=== PATIENT | male | born 1960 | race Caucasian/White ===

== ENCOUNTER 2021-04-07 14:32 | Outpatient (CLI) | payer OTHER, SELFPAY ==
[2021-04-07 14:36] VITALS: BP 192/85; PULSE 64; RESP 16; TEMP 36.4; O2SAT 100; BMI 35.2
[2021-04-07] MEDS: 0.9% Saline Lock 10 ML Syringe IV (14:37)
[2021-04-07 15:45] VITALS: BP 172/86; PULSE 78; RESP 16; TEMP 36.8; O2SAT 98
[2021-04-07 16:33] VITALS: BP 173/94; PULSE 60; RESP 16; TEMP 36.7; O2SAT 99
== END 2021-04-07 16:47 | disposition home or self-care (01) ==
LOC: MS3OUT 14:32 → MS3 14:33
PROVIDERS: PCP Nurse Practitioner; Referring Provider Nurse Practitioner Adult Health; Visit Provider Nurse Practitioner Adult Health
DX: Z23 Encounter for immunization (principal); U07.1 COVID-19
CPT/HCPCS: J7050; M0245; Q0245; A4216

== ENCOUNTER → 2022-12-09 | Outpatient (CLI) | payer OTHER, SELFPAY ==
--- NOTE | 2022-12-09 17:15 | US_ITS ---
EXAM: US RETROPERITONEAL LIMITED, RENAL CLINICAL INDICATION: HTN TECHNIQUE: Limited grayscale and color Doppler sonographic evaluation of the retroperitoneum was performed. COMPARISON: No relevant prior studies available. FINDINGS: RIGHT KIDNEY: Unremarkable. 13.6 cm x 5.1 cm x 4.8 cm. No hydronephrosis. No shadowing calculus. No focal lesion. No perinephric collection is demonstrated. LEFT KIDNEY: Unremarkable. 12.5 cm x 4.1 cm x 5.3 cm. No hydronephrosis. No shadowing calculus. No focal lesion. No perinephric collection is demonstrated. BLADDER: Mildly distended, maximum diameter 5 cm, calculated volume of 46 cc, 4 mm anterior wall. Neither ureteral jet is seen. Post void bladder volume 3 cc. US/Kidney and Bladder IMPRESSION: Unremarkable kidneys and bladder. Electronically Signed: Marilou Metzger MD at 8:55 EDT ,
== END | disposition home or self-care (01) ==
LOC: US 17:14
PROVIDERS: PCP Nurse Practitioner Family; Referring Provider Nurse Practitioner Family; Visit Provider Nurse Practitioner Family
DX: I10 Essential (primary) hypertension (principal)
CPT/HCPCS: 76770

== ENCOUNTER → 2024-08-05 | Outpatient (CLI) | payer MEDICARE, OTHER, SELFPAY ==
--- NOTE | 2024-08-05 07:48 | CDU_ITS ---
Reason For Study Reason For Study: Dizziness Rt. Velocities/BP Lt. Velocities/BP Prox CCA 97/16 cm/sec. Prox CCA 76/13 cm/sec. Mid CCA 69/19 cm/sec. Mid CCA 69/15 cm/sec. Dist CCA 59/15 cm/sec. Dist CCA 62/10 cm/sec. Prox ICA 89/19 cm/sec. Prox ICA 61/18 cm/sec. Mid ICA 111/29 cm/sec. Mid ICA 79/25 cm/sec. Dist ICA 114/30 cm/sec. Dist ICA 62/19 cm/sec. Rt. ICA/CCA = 1.7. Lt. ICA/CCA = 1.1. Prox ECA 134/15 cm/sec. Prox ECA 122/11 cm/sec. Rt. Vert. 41/8 cm/sec. Lt. Vert. 36/10 cm/sec. Right Extracranial There is heterogeneous, smooth atherosclerotic plaque noted in the right common carotid artery. There is heterogeneous, irregular atherosclerotic plaque noted in the right internal carotid artery. There is no significant atherosclerotic plaque noted in the right external carotid artery. Antegrade flow is noted in the right vertebral artery. Left Extracranial There is heterogeneous, smooth atherosclerotic plaque noted in the left common carotid artery. There is heterogeneous, smooth atherosclerotic plaque noted in the left internal carotid artery. There is heterogeneous, smooth atherosclerotic plaque noted in the left external carotid artery. Antegrade flow is noted in the left vertebral artery. Procedure Carotid Duplex 55400. This is a Carotid Duplex examination using B-mode, color flow and specral Doppler. Exam performed in department. VL/Carotid Duplex Ultrasound Interpretation Summary Mild (<50%) stenosis right extracranial internal carotid. Mild (<50%) stenosis left extracranial internal carotid. Patent and antegrade vertebrals bilaterally. Ordering Physician: Vianney Quintero Referring Physician: Vainney Quintero Performed By: Shila Seaman, ANSHUL, RVT
== END | disposition home or self-care (01) ==
PROVIDERS: PCP Nurse Practitioner Family; Referring Provider Nurse Practitioner Family; Visit Provider Nurse Practitioner Family
DX: R42 Dizziness and giddiness (principal)
CPT/HCPCS: 93880

== ENCOUNTER → 2024-12-24 | Outpatient (CLI) | payer MEDICARE, OTHER, SELFPAY ==
--- NOTE | 2024-12-24 08:52 | RDU_ITS ---
Reason For Study Reason For Study: HTN Right Renal Artery Left Renal Artery Right renal artery ostium 116.7/29.0 Left renal artery ostium 119.8/30.3 RSV/EDV. PSV/EDV. Right renal artery proximal 94.8/26.8 Left renal artery proximal PSV/EDV PSV/EDV. 180.8/39.6 . Right renal artery mid 80.5/21.3 PSV/EDV. Left renal artery mid 174.7/51.9 Right renal artery distal 68.5/19.4 PSV/EDV . PSV/EDV. Left renal artery distal 159.3/42.7 Right RAR 1.23. PSV/EDV. Right Renal Parenchyma Left RAR 1.91. Upper Pole Medula 39.2/9.2 PSV/EDV. Left Renal Parenchyma Right upper pole medulla EDR 0.20 . Left upper pole medulla 35.1/8.7 Right upper pole medulla R.I. 0.77 . PSV/EDV . Upper Chaitanya Cortx 22.0/8.5 PSV/EDV. Left upper pole medulla EDR 0.20 . Right upper pole cortex EDR 0.40 . Left upper pole medulla R.I. 0.75 . Right upper pole cortex R.I. 0.61 . UP Cortex 17.5/7.6 PSV/EDV. Right lower Pole medulla 34.3/9.8 Left upper pole cortex EDR 0.40 . PSV/EDV . Left upper pole cortex R.I. 0.56 . Right lower pole medulla EDR 0.30 . Left lower Pole medulla 34.6/8.7 Right lower pole medulla R.I. 0.72 . PSV/EDV . Lower Pole Cortex 20.2/7.3 PSV/EDV. Left lower pole medulla EDR 0.30 . Right lower pole cortex EDR 0.40 . Left lower pole medulla R.I. 0.75 . Right lower pole cortex R.I. 0.64 . Lower Pole Cortx 23.0/7.1 PSV/EDV. Right Renal Hilar Left lower pole cortex EDR 0.30 . Right Hilar avg 71.4/14.2 PSV/EDV. Left lower pole cortex R.I. 0.69 . Right hilar acceleration time 10 m/sec. Left Renal Hilar Right Renal Dimensions LT Hilar avg 71.0/23.1 PSV/EDV . Right kidney size 12.54 cm . Left hilar acceleration time 20 m/sec. Right cortical dimension 2.24 cm . Left Renal Dimensions Left kidney size 11.52 cm . Left cortical dimension 1.78 cm . Aorta Proximal abdominal aorta 2.24 x 2.35 cm . Proximal abdominal aorta peak systolic velocity is 94.8 cm/sec . Distal abdominal aorta 1.75 x 1.96 cm . Distal abdominal aorta peak systolic velocity is 116.1 cm/sec . Procedures Renal Artery Duplex with B-Mode, Color and Pulsed Wave Doppler. Technically difficult study due to Bowel Gas. VL/Renal Artery Duplex Ultrasound Interpretation Summary Dimensions of the intra-abdominal aorta appear normal, without evidence of aneu rysmal dilatation. Renal artery velocities are bilaterally normal. Acceleration times are normal bilaterally. R enal-aortic ratios are also bilaterally normal. There is no evidence of hemodynamically significant renal artery stenos is on either side. The right cortical dimension is increased. The left cortical dimension is increased. Kidneys appea r normal in size bilaterally. Ordering Physician: Suzan Reddy Referring Physician: Suzan Reddy Performed By: Jai Durand, RVT
== END | disposition home or self-care (01) ==
LOC: CVS 08:49
PROVIDERS: PCP Nurse Practitioner Family; Referring Provider Internal Medicine; Visit Provider Internal Medicine
DX: I10 Essential (primary) hypertension (principal)
CPT/HCPCS: 93975

== ENCOUNTER → 2025-01-01 | Outpatient (CLI) | payer MEDICARE, OTHER, SELFPAY ==
--- NOTE | 2025-01-01 12:54 | ECHOCS_ITS ---
Reason For Study Reason For Study: SLEEP APNEA Procedure This was a 2D Doppler, Color Flow transthoracic echocardiogram. The study was technically difficult. Contrast injection was performed. Exam performed in department. Left Ventricle Normal LV size. Mild concentric left ventricular hypertrophy. Left ventricular systolic function is normal. The left ventricular ejection fraction is 65 %. Stage 1 diastolic dysfunction. No regional wall motion abnormalities noted. Right Ventricle Normal RV size. Atria Normal left atrium. Normal right atrium. Tricuspid Valve Normal tricuspid valve. Mild (1+) tricuspid valve insufficiency. Pulmonary artery systolic pressure is 35 mmHg. Aortic Valve Trisinus/trileaflet aortic valve. Mild focal aortic valve calcification. Pulmonic Valve Normal pulmonic valve. Great Vessels Normal aortic root. Pericardium/Pleural No pericardial effusion. Medication 22 gauge I.V. with prn adaptor inserted into left arm. Diluted definity 2ml given slow IV push to enhance endocardial definition. MMode/2D Measurements & Calculations LVIDd: 4.1 cm IVSd: 1.3 cm LVOT diam: 2.2 cm LVIDs: 2.8 cm LVPWd: 1.3 cm LVOT area: 3.8 cm2 RVDd: 3.2 cm FS: 31.5 % CO(Teich): 2.5 l/min asc Aorta Diam: 3.8 cm LAV(MOD- bp): 53.6 ml LAV(MOD- bp) Indexed: 22.3 ml/m2 LAV(MOD- sp2): 63.4 ml LAV(MOD- sp4): 42.2 ml CO(MOD- sp4): 3.8 l/min LVAd ap4: 34.6 cm2 LVAd ap2: 33.2 cm2 SV(MOD- sp4): 69.4 ml LVLd ap4: 8.8 cm LVLd ap2: 8.4 cm EDV(MOD-sp4): 110.6 ml EDV(MOD-sp2): 108.1 ml SI(MOD- sp4): 28.9 ml/m2 EDV(sp4-el): 115.3 ml EDV(sp2-el): 112.2 ml LVAs ap4: 18.8 cm2 LVAs ap2: 17.1 cm2 LVLs ap4: 7.2 cm LVLs ap2: 6.9 cm ESV(MOD-sp4): 41.2 ml ESV(MOD-sp2): 35.3 ml ESV(sp4-el): 41.8 ml ESV(sp2-el): 35.8 ml EF(MOD-sp4): 62.7 % EF(MOD-sp2): 67.4 % EF(sp4-el): 63.8 % SV(MOD-sp2): 72.8 ml SV(sp4-el): 73.5 ml Ao sinus diam: 3.6 cm SI(MOD-sp2): 30.4 ml/m2 Ao ST Junction: 2.6 cm LA dimension(2D): 3.7 cm LA A4 area: 17.6 cm2 TAPSE: 1.9 cm RA A4 area: 11.1 cm2 Time Measurements MV dec time: 0.21 sec Doppler Measurements & Calculations MV E max joshua: 87.0 cm/sec Lat Peak E' Joshua: 10.2 cm/sec Med Peak E' Joshua: 9.0 cm/sec MV A max joshua: 90.8 cm/sec E/E' lat: 8.5 E/E' med: 9.7 MV E/A: 0.96 MV dec slope: 424.0 cm/sec2 Ao V2 max: 179.3 cm/sec LV V1 max: 148.9 cm/sec Ao max P.9 mmHg LV V1 max P.9 mmHg Ao V2 mean: 127.5 cm/sec LV V1 mean P.4 mmHg Ao mean P.3 mmHg LV V1 mean: 124.5 cm/sec Ao V2 VTI: 42.0 cm LV V1 VTI: 35.2 cm AV (velocity ratio): 0.84 FABIO(I,D): 3.2 cm2 FABIO(V,D): 3.1 cm2 CO(LVOT): 7.1 l/min PA V2 max: 90.5 cm/sec TR max joshua: 281.4 cm/sec SV(LVOT): 132.3 ml TR max P.7 mmHg ECHO/Echo Complete W/ Contrast Interpretation Summary Normal LV size. Left ventricular systolic function is normal. The left ventricular ejection fraction is 65 %. Stage 1 diastolic dysfunction. Mild concentric left ventricular hypertrophy. Contrast injection was performed. Ordering Physician: Suzan Reddy Referring Physician: Suzan Reddy M.D. Performed By: Dejah Richard RDCS
== END | disposition home or self-care (01) ==
LOC: CVS 12:52
PROVIDERS: PCP Nurse Practitioner Family; Referring Provider Internal Medicine; Visit Provider Internal Medicine
DX: G47.33 Obstructive sleep apnea (adult) (pediatric) (principal)
CPT/HCPCS: 93306; Q9957; A4216; C8929

== ENCOUNTER → 2025-02-10 | Outpatient (CLI) | payer MEDICARE, OTHER, SELFPAY ==
[2025-02-10 10:32] LABS: Cholesterol 173 mg/dL (<=200); Low Density Lipoprotein Calc. 108 mg/dL; Triglycerides 113 mg/dL; Uric Acid 5.7 mg/dL (3.5-7.2); Very Low Density Lipoprotein 23 mg/dL (5-40); cholesterol:hdl ratio screen 4.08
== END | disposition home or self-care (01) ==
LOC: MTLAB 08:55
PROVIDERS: PCP Nurse Practitioner Family; Referring Provider Nurse Practitioner Family; Visit Provider Nurse Practitioner Family
DX: M10.9 Gout, unspecified (principal); E78.5 Hyperlipidemia, unspecified
CPT/HCPCS: 36415; 80061; 84550

== ENCOUNTER → 2025-04-29 | Outpatient (CLI) | payer MEDICARE, OTHER, SELFPAY ==
--- OUTSIDE RECORDS SUMMARY | 2025-04-29 06:50 | XMS RPT_ITS | CCD ---
Author Organization [facility] Care Team Providers Care Glove Cutter Name Role Phone MarenjennifervioletaTrini E Unavailable Amadeo Cardona Unavailable Unavailable Unavailable Unavailable Dyana Galaviz Unavailable Unavailable Ciesa DARRYL, Leigh Ann Unavailable Mary King MA Unavailable Unavailable Unavailable Unavailable Desi Trini Unavailable Teresa WILLINGHAMNPaloma Unavailable Unavailable Leon TELEPHONIC NURSE, Connie Unavailable Leon TELEPHONIC NURSE, Connie Unavailable [phone] Anabel Lopez MA Unavailable Unavailable Leon CNP, Connie Attending Unavailable Leon CNP, Connie Referring Unavailable Leon DARRYL, Connie Consulting Unavailable Unavailable Unavailable Mark GRAD INTERN, Kalie Unavailable Unavailable LEON VARIETY LATHE OPERATOR-TELEPHONIC NURSE, CONNIE Attending Unavail able JOEY VARIETY LATHE OPERATOR-TELEPHONIC NURSE, MADI S Primary Care Unava ilable LEON VARIETY LATHE OPERATOR-TELEPHONIC NURSE, CONNIE Attending Unavail able JOEY VARIETY LATHE OPERATOR-TELEPHONIC NURSE, MADI S Primary Care Unava ilable LEON VARIETY LATHE OPERATOR-TELEPHONIC NURSE, CONNIE Attending Unavail able JOEY VARIETY LATHE OPERATOR-TELEPHONIC NURSE, AMDI S Primary Care Unava ilable Dr. Roberta Almanzar Attending Provider Leon SPECIAL EVENT ASSISTANT-C Connie Primary Care Provider [phone] Leon SPECIAL EVENT ASSISTANT-C Connie Referring Provider Unavailable Unavailable Leon SPECIAL EVENT ASSISTANT-CConnie Primary Care Provider [phone] Leon SPECIAL EVENT ASSISTANT-CConnie Attending Provider [phone] Leon SPECIAL EVENT ASSISTANT-C, Connie Referring Provider [phone] Camron ALMARAZ, Dr. Newton Attending Provider Leon SPECIAL EVENT ASSISTANT-C, Connie Primary Care Provider Dr. Suzan Reddy DO Attending Provider Maureen PICKARD, Dr. Mares Referring Provider Scar ALMARAZ, Dr. Magdi Mcdaniel Attending Provider Genesis ALMARAZ, Dr. Hung Attending Provider Leon, Connie Primary Care Unavailable Abhilash Hurtado Attending Unavailable Leon, Connie Referring Unavailable Aman Lyon Attending Unavailable Leon, Connie Primary Care Unavailable Leon, Connie Referring Unavailable Leon, Connie Primary Care Unavailable LeonConnie Attending Unavailable Leon, Connie Referring Unavailable Leon, Connie Primary Care Unavailable Leon, Connie Attending Unavailable Leon, Connie Primary Care Unavailable Suzan Reddy Attending Unavailable Suzan Reddy Referring Unavailable Leon, Connie Primary Care Unavailable Suzan Reddy Attending Unavailable Suzan Reddy Referring Unavailable Allergies Allergy Classification Reported Allergen(s) Allergy Type Date of Onset Reaction(s) Facility (20 sources) Penicillins; Translations: [Penicillins] Allergy to substance (finding) 3 unknown [facility] Work Phone: Medications Current Medications Medication Drug Class(es) Dates Sig (Normalized) Sig (Original) amLODIPine 10 mg oral tablet (20 sources) Dihydropyridine Calcium Channel Benja Start: 12-05-2022 take 1 tablet by mouth once daily Amlodipine 10 mg tablet Active 10 mg PO DAILY December 12, 2022 12:00am Start: 12-02-2022 take 1 tablet by feli th once daily amLODIPine 5 mg oral tablet 1 Tablet daily for 0 days Quantity: 30 {Tablet} Refills: 0 Ordered: 02-Dec-2022 Connie Flores CNP Start : 02-Dec-2022 Active Start: 12-02-2022 take 1 tablet by feli th once daily amLODIPine 5 mg oral tablet 1 Tablet daily for 90 days Quantity: 90 {Tablet} Refills: 3 Ordered: 02-Dec-2022 Connie Flores CNP Start : 02-Dec-2022 Active Comments: Mail order. Start: 11-21-2022 take 1 tablet by feli th once daily amLODIPine 5 mg oral tablet 1 Tablet daily for 0 days Quantity: 30 {Tablet} Refills: 0 Ordered: 21-Nov-2022 Connie Flores CNP Start : 21-Nov-2022 Active Comment on above: Mail order. bisoprolol fumarate 10 mg / hydroCHLOROthiazide 6.25 mg oral tablet (20 sources) Thiazide Diuretic, beta-Adrenergic Benja Start: 12-12-2022 Bisoprolol-Hydroch lorothiazide (Ziac) 10-6.25 mg tablet Active 1 {tbl} PO TWICE A DAY December 12, 2022 11:46am Start: 12-05-2022 End: 03-02-2023 Bisoprolol-Hydrochlorothiazi de (Ziac) 10-6.25 mg tablet Discontinued 1 {tbl} PO DAILY December 12, 2022 12:00am December 12, 2022 11:46am Start: 11-24-2022 End: 12-12-2022 Bisoprolol-Hydrochlorothiazi de (Ziac) 2.5-6.25 mg tablet Discontinued 1 {tbl} PO EVERY EVENING November 24, 2022 9:30am December 12, 2022 11:44am Start: 11-11-2022 End: 12-12-2022 Bisoprolol-Hydrochlorothiazi de (Ziac) 5-6.25 mg tablet Discontinued 1 {tbl} PO EVERY MORNING November 24, 2022 12:00am December 12, 2022 11:44am Start: 11-11-2022 take 1 tablet by feli th before breakfast Ziac 10-6.25 mg oral tablet 1 Tablet josé ry morning for 30 days Quantity: 30 {Tablet} Refills: 6 Ordered: 11-Nov-2022 Connie Flores CNP Start : 11-Nov-2022 Active Start: 09-12-2022 take 1 tablet by feli th between dinner and bedtime Ziac 2.5-6.25 mg oral tablet 1 Tablet ev rafa evening for 0 days Quantity: 90 {Tablet} Refills: 4 Ordered: 12-Sep-2022 Connie Flores CNP Start : 12-Sep-2022 Active Comments: Mail order. Start: 05-11-2022 take 1 tablet by feli th between dinner and bedtime Ziac 2.5-6.25 mg oral tablet 1 Tablet ev rafa evening for 0 days Quantity: 90 {Tablet} Refills: 4 Ordered: 11-May-2022 Connie Flores CNP Start : 11-May-2022 Active Comments: Mail order. Start: 05-03-2022 take 1 tablet by feli th between dinner and bedtime Ziac 2.5-6.25 mg oral tablet 1 Tablet ev rafa evening for 0 days Quantity: 90 {Tablet} Refills: 4 Ordered: 03-May-2022 Connie Flores CNP Start : 03-May-2022 Active Comments: Mail order. Start: 04-27-2022 take 1 tablet by feli th before breakfast Ziac 5-6.25 mg oral tablet 1 (one) table t every morning for 0 days Quantity: 90 {Tablet} Refills: 4 Ordered: 27-Apr-2022 Connie Flores CNP Start : 27-Apr-2022 Active Start: 04-25-2022 take 1 tablet by feli th before breakfast Ziac 5-6.25 mg oral tablet 1 (one) table t every morning for 0 days Quantity: 90 {Tablet} Refills: 4 Ordered: 25-Apr-2022 Connie Flores CNP Start : 25-Apr-2022 Active Start: 04-07-2021 End: 11-24-2022 Bisoprolol-Hydrochlorothiazi de (Ziac) 2.5-6.25 mg Tablet Discontinued 1 {tbl} PO DAILY April 07, 2021 1:00am November 24, 2022 9:31am Start: 04-22-2020 take 2 tablets by mo uth once daily Ziac 2.5-6.25 MG Oral Tablet 2 (two) Tab let daily for 0 days Quantity: 180 {Tablet} Refills: 3 Ordered: 22-Apr-2020 Trini Weeks CNP, CNP, Mary E Start : 22-Apr-2020 Active Comments: Mail order. Comment on above: Mail order. lisinopril 40 mg oral tablet (20 sources) Angiotensin Converting Enzyme Inhibitor Start: 04-07-2021 take 1 tablet by mouth once daily Lisinopril 40 mg tablet Active 40 mg PO DAILY April 07, 2021 1:00am Start: 06-24-2020 take 1 tablet by feli th once daily Lisinopril 40 MG Oral Tablet 1 (one) Tablet daily for 90 days Quantity: 90 {Tablet} Refills: 3 Ordered: 24-Jun-2020 Trini Weeks CNP, CNP, Mary E Start : 24-Jun-2020 Active Comments: Mail order. Start: 04-22-2020 take 1 tablet by feli th once daily Lisinopril 40 MG Oral Tablet 1 (one) Tablet daily for 0 days Quantity: 90 {Tablet} Refills: 3 Ordered: 22-Apr-2020 Trini Weeks CNP, CNP, Mary E Start : 22-Apr-2020 Active Comments: Mail order. Comment on above: Mail order. Completed/Discontinued Medications Medication Drug Class(es) Dates Sig (Normalized) Sig (Original) allopurinol 300 mg oral tablet (20 sources) Xanthine Oxidase Inhibitor Start: 04-06-2021 End: 05-03-2021 take 1 tablet by mouth once daily Allopurinol 300 MG Oral Tablet 1 (one) Tablet daily for 0 days Quantity: 90 {Tablet} Refills: 3 Ordered: 03-May-2021 Trini Weeks Start : 06-Apr-2021 End : 03-May-2021 Inactive Comments: Mail order. Start: 04-29-2020 take 1 tablet by feli th once daily Allopurinol 300 MG Oral Tablet 1 (one) Tablet daily for 0 days Quantity: 90 {Tablet} Refills: 3 Ordered: 29-Apr-2020 Trini Weeks CNP, CNP, Mary E Start : 29-Apr-2020 Active Comments: Mail order. Comment on above: Mail order. dexamethasone 6 mg oral tablet (20 sources) Corticosteroid Start: End: take 1 tablet by mouth once daily at mealtime Dexamethasone 6 MG Oral Tablet 1 (one) Tablet daily for 7 days Quantity: 7 {Tablet} Refills: 0 Ordered: 09-Apr-2021 Amadeo Cardona LPN Start : 06-Apr-2021 End : 09-Apr-2021 Inactive Comments: with food Comment on above: with food ibuprofen 200 mg oral tablet (20 sources) Nonsteroidal Anti-inflammatory Drug Start: End: take 1 tablet by mouth every six hours as needed Ibuprofen 200 MG Oral Tablet 1 (one) Tablet q6hrs prn for 0 days Quantity: 30 {Tablet} Refills: 0 Ordered: 03-May-2021 Fernando SORIANO Mary Start : 22-Apr-2020 End : 03-May-2021 Inactive Problems Active Problems Problem Classification Problem Date Documented Date Episodic/Chronic Disorders of lipid metabolism (4 sources) Mixed hyperlipidemia; Translations: [Mixed hyperlipidemia] 11-24-2022 Chronic Essential hypertension (20 sources) Hypertensive disorder; Translations: [Hypertension] Onset: 12-30-2024 04-22-2020 Chronic Comment on above: controlled on Ziac a nd Echo 62-25-31Omyjgn test 02-19-18 controlled on Ziac a nd Echo 56-62-18Zfvfdm test 02-19-18He will self monitor and bring in diary end apr not optimally contro lled on Ziac (bisoprolol/hctz) 2.5/6.25 and lisinopril 40mgadvised to monitor bp at home, we will increase to 5mg/6.25 in a.m. and 2.5mg/6.25 in pm.keep log of Bps for next 1-2 wks and let us know readings. education provided. Goal systolic <130 and diastolic <80Echo 12-44-31Wkqtdu test 02-19-18 Goal systolic <130 a nd diastolic <80Lifestyle changes and recommendations reviewed.-Plan: start amlodipine. we may need to take off of ziac and start losartan as well since he has been on ziac for over 30 years. had renal US in his 20's (he says normal).Echo 20-46-92Zgcntn test 02-19-18-uncontrolled on Ziac (bisoprolol/hctz) 2.5/6.25 and lisinopril 40mg-advised to monitor @home and we increased to 10mg/6.25 in a.m. and 5mg/6.25 qHS. Goal systolic <130 a nd diastolic <80Lifestyle changes and recommendations reviewed.-started amlodipine. may need to d/c ziac and start losartan since he has been on ziac for over 30 years. had renal US in his 20's (he says normal).Echo 51-78-29Xglxrt test 02-19-18-uncontrolled on Ziac (bisoprolol/hctz) 2.5/6.25 and lisinopril 40mg-advised to monitor @home and we increased Qrll45vg/6.25 in a.m. and 5mg/6.25 qHS. Goal systolic <130 a nd diastolic <80Lifestyle changes and recommendations reviewed.-started amlodipine 5mg with some improvement (systolic 150-180, was 160-210), he increased on own 3 days ago to 5mg bid. he is also going to go to the 10-320mg dose BID on Ziac.-consider d/c ziac and start losartan since he has been on ziac for over 30 years. had renal US in his 20's (he says normal). we will repeat thatEcho 34-41-14Zwoydf test 02-19-18-uncontrolled on Ziac (bisoprolol/hctz) 2.5/6.25 and lisinopril 40mg-advised to monitor @home and we increased Gnbi06yk/6.25 in a.m. and 5mg/6.25 qHS. Gout and other crystal arthropathies (20 sources) Gout; Translations: [Gout] Onset: 03-03-2025 04-22-2020 Chronic Comment on above: occurs once a year n ot on med Immunizations and screening for infectious disease (20 sources) Contact with and (suspected) exposure to other viral communicable diseases; Translations: [Exposure to SARS virus] Resolved: 11-24-2022 06-01-2020 Episodic Other infections; including parasitic (20 sources) Personal history of other infectious and parasitic diseases; Translations: [History of COVID-19] 05-03-2021 Episodic Comment on above: Apr 06 2021 Other lower respiratory disease (20 sources) Cough; Translations: [Cough] Resolved: 05-03-2021 05-03-2021 Episodic Other non-traumatic joint disorders (20 sources) Shoulder pain; Translations: [Shoulder pain, bilateral] 04-22-2020 Episodic Other non-traumatic joint disorders (20 sources) Pain in right shoulder; Translations: [Shoulder pain, bilateral] 11-24-2022 Episodic Other nutritional; endocrine; and metabolic disorders (20 sources) Body mass index 30+ - obesity; Translations: [BMI 36.0-36.9,adult] Resolved: 11-24-2022 04-22-2020 Chronic Other nutritional; endocrine; and metabolic disorders (4 sources) Obesity; Translations: [Obesity, unspecified] 12-12-2022 Chronic Other nutritional; endocrine; and metabolic disorders (1 source) Obesity, unspecified; Translations: [Obesity, unspecified] 12-12-2022 Chronic Other screening for suspected conditions (not mental disorders or infectious disease) (20 sources) Screening status; Translations: [Encounter for screening for malignant neoplasm of prostate (Renamed from Screening for prostate cancer)] 05-03-2021 Episodic Other upper respiratory disease (20 sources) Nasal congestion; Translations: [Nasal congestion] Resolved: 11-24-2022 05-03-2021 Episodic Residual codes; unclassified (20 sources) Sleep apnea; Translations: [Sleep apnea] 04-22-2020 Chronic Comment on above: says test was inconc lusive, does not need cpap. no excessive daytime sleepiness. reconsider formal PS Gsays test was inconclusive (home study), does not need cpap. no excessive daytime sleepiness. but now BP very high Residual codes; unclassified (1 source) Obstructive sleep apnea (adult) (pediatric); Translations: [Obstructive sleep apnea (adult) (pediatric)] Onset: 01-10-2025 Chronic Residual codes; unclassified (20 sources) Non-smoker; Translations: [Nonsmoker] 05-03-2021 Episodic Unclassified (20 sources) Unclassified (16 sources) BMI 36.0-36.9,adult Unclassified (20 sources) Non-smoker; Translations: [Nonsmoker] 04-22-2020 Unclassified (1 source) History of COVID-19 Unclassified (1 source) Physical exam Viral infection (20 sources) Disease caused by 2019-nCoV; Translations: [COVID] Resolved: 11-24-2022 05-03-2021 Episodic Comment on above: Day #8 today Apr 09, 2021, was vaccinated with pfizer, 2nd shot in August., got monoclonal Past or Other Problems Problem Classification Problem Date Documented Da te Episodic/Chronic Conditions associated with dizziness or vertigo (1 source) Dizziness and giddiness; Translations: [Dizziness and giddiness] Onset: 08-08-2024 Episodic Unclassified (8 sources) Shoulder pain, bilateral Unclassified (16 sources) Encounter for screening for malignant neoplasm of prostate (Renamed from Screening for prostate cancer); Translations: [Screening status] 04-22-2020 Unclassified (4 sources) Exposure to SARS virus Unclassified (1 source) Body mass index 30+ - obesity; Translations: [Body mass index (BMI) greater than 35] 11-24-2022 Viral infection (2 sources) Disease caused by 2019-nCoV Results Test Name Value Interpretation Reference Range Facility Lipid Profileon 02-10-2025 CHOL:HDL 4.08 Normal [facility] Comment on above: Performed By: #### L 500.4100, L501.1400 #### [facility] [address] [place], [place], [phone] Cholesterol [Mass/Vol] 173 mg/dL Normal <=200 [facility] Comment on above: Result Comment: Chol esterol level, Desirable <200 mg/dL Borderline high cholesterol 200-239 mg/dL High cholesterol >=240 mg/dL Recommendations of the NCEP Adult Treatment Panel for the following risk-cutoff thresholds for the [place] population. Performed By: #### L 500.4100, L501.1400 #### [facility] [address] [place], [place], [id number] Cholesterol in HDL [Mass/Vol] 42 mg/dL Normal [facility] Comment on above: Result Comment: Nita onal Cholesterol Education Program (NCEP) guidelines: <40 mg/dL: Low HDL-cholesterol (major risk factor for CHD) >= 60 mg/dL: High HDL-cholesterol (negative risk factor for CHD) HDL-cholesterol is affected by a number of factors, e.g. smoking, exercise, hormones, sex and age. Performed By: #### L 500.4100, L501.1400 #### [facility] [address] [place], [address] [phone] Cholesterol in LDL [Mass/Vol] 108 mg/dL Normal [facility] Comment on above: Result Comment: Bord tptuim=087-147 mg/dL Higher Smre=014 mg/dL or greater Friedwald Equation for LDL-C Performed By: #### L 500.4100, L501.1400 #### [facility] [address] [place], [place], [id number] Cholesterol in VLDL [Mass/Vol] 23 mg/dL Normal 5-40 [facility] Comment on above: Performed By: #### L 500.4100, L501.1400 #### [facility] [address] [place], [address] Triglyceride [Mass/Vol] 113 mg/dL Normal [facility] Comment on above: Result Comment: The drugs N-Acetylcysteine and Metamizole may falsely depress this assay. Normal range: <150 mg/dL Borderline High: 150-199 mg/dL High: 200-499 mg/dL Very High: >500 mg/dL Performed By: #### L 500.4100, L501.1400 #### [facility] [address] [place], [place], [phone] Uric Acidon 02-10-2025 URIC 5.7 mg/dL Normal 3.5-7.2 [facility] Comment on above: Result Comment: The drugs N-Acetylcysteine and Metamizole may falsely depress this assay. Performed By: #### L 500.4100, L501.1400 #### [facility] [address] [place], [address] Echocardiogram study reportO rdered By: Abhilash Hurtado on 01-06-2025 Study report [facility] [address] [place] [address] Echo Complete W/ Contrast 01/01/25 1255 MR#: [id number] Acct: [id number] Name: PETE BARR Rep #:[id number] : 1960 64 From: Abhilash Ochoa Attending Dr: Dr. Suzan Reddy DO Status: REG CLI Ordering Dr: Suzan Reddy DO Date: 01/01/25 Location: [facility] Sex: M C Admitted: Reason For Study Reason For Study: SLEEP APNEA Procedure This was a 2D Doppler, Color Flow transthoracic echocardiogram. The study was technically difficult. Contrast injection was performed. Exam performed in department. Left Ventricle Normal LV size. Mild concentric left ventricular hypertrophy. Left ventricular systolic function is normal. The left ventricular ejection fraction is 65 %. Stage 1 diastolic dysfunction. No regional wall motion abnormalities noted. Right Ventricle Normal RV size. Atria Normal left atrium. Normal right atrium. Tricuspid Valve Normal tricuspid valve. Mild (1+) tricuspid valve insufficiency. Pulmonary artery systolic pressure is 35 mmHg. Aortic Valve Trisinus/trileaflet aortic valve. Mild focal aortic valve calcification. Pulmonic Valve Normal pulmonic valve. Great Vessels Normal aortic root. Pericardium/Pleural No pericardial effusion. Medication 22 gauge I.V. with prn adaptor inserted into left arm. Diluted definity 2ml given slow IV push to enhance endocardial definition. MMode/2D Measurements & Calculations LVIDd: 4.1 cm IVSd: 1.3 cm LVOT diam: 2.2 cm LVIDs: 2.8 cm LVPWd: 1.3 cm LVOT area: 3.8 cm2 RVDd: 3.2 cm FS: 31.5 % __ CO(Teich): 2.5 l/min asc Aorta Diam: 3.8 cm LAV(MOD-bp): 53.6 ml LAV(MOD-bp) Indexed: 22.3 ml/m2 LAV(MOD-sp2): 63.4 ml LAV(MOD-sp4): 42.2 ml CO(MOD-sp4): 3.8 l/min LVAd ap4: 34.6 cm2 LVAd ap2: 33.2 cm2 SV(MOD-sp4): 69.4 ml LVLd ap4: 8.8 cm LVLd ap2: 8.4 cm EDV(MOD-sp4): 110.6 ml EDV(MOD-sp2): 108.1 ml SI(MOD-sp4): 28.9 ml/m2 EDV(sp4-el): 115.3 ml EDV(sp2-el): 112.2 ml LVAs ap4: 18.8 cm2 LVAs ap2: 17.1 cm2 LVLs ap4: 7.2 cm LVLs ap2: 6.9 cm ESV(MOD-sp4): 41.2 ml ESV(MOD-sp2): 35.3 ml ESV(sp4-el): 41.8 ml ESV(sp2-el): 35.8 ml EF(MOD-sp4): 62.7 % EF(MOD-sp2): 67.4 % EF(sp4-el): 63.8 % SV(MOD-sp2): 72.8 ml SV(sp4-el): 73.5 ml Ao sinus diam: 3.6 cm SI(MOD-sp2): 30.4 ml/m2 Ao ST Junction: 2.6 cm LA dimension(2D): 3.7 cm LA A4 area: 17.6 cm2 __ TAPSE: 1.9 cm RA A4 area: 11.1 cm2 Time Measurements MV dec time: 0.21 sec Doppler Measurements & Calculations MV E max eb: 87.0 cm/sec Lat Peak E' Eb: 10.2 cm/sec Med Peak E' Eb: 9.0 cm/sec MV A max eb: 90.8 cm/sec E/E' lat: 8.5 E/E' med: 9.7 MV E/A: 0.96 __ MV dec slope: 424.0 cm/sec2 Ao V2 max: 179.3 cm/sec LV V1 max: 148.9 cm/sec Ao max P.9 mmHg LV V1 max P.9 mmHg Ao V2 mean: 127.5 cm/sec LV V1 mean P.4 mmHg Ao mean P.3 mmHg LV V1 mean: 124.5 cm/sec Ao V2 VTI: 42.0 cm LV V1 VTI: 35.2 cm AV (velocity ratio): 0.84 FABIO(I,D): 3.2 cm2 FABIO(V,D): 3.1 cm2 __ CO(LVOT): 7.1 l/min PA V2 max: 90.5 cm/sec TR max eb: 281.4 cm/sec SV(LVOT): 132.3 ml TR max P.7 mmHg ECHO/Echo Complete W/ Contrast Interpretation Summary Normal LV size. Left ventricular systolic function is normal. The left ventricular ejection fraction is 65 %. Stage 1 diastolic dysfunction. Mild concentric left ventricular hypertrophy. Contrast injection was performed. Ordering Physician: Suzan Reddy Referring Physician: Suzan Reddy M.D. Performed By: Dejah Richard RDCS 01/06/25 1316 Date _ Abhilash Hurtado MD CC: SPECIAL EVENT ASSISTANT-C Connie Flores; Dr. Suzan Reddy DO ~ Date Dictated: 01/01/25 1255 Date Transcribed: 01/06/25 131 Flaker Tender: Signed [facility] Work Phone: Echo Complete W/ Contraston 01-01-2025 Echo Complete W/ Contrast [facility] [address] [place] [address] Echo Complete W/ Contrast 01/01/251254 MR#: [id number] Acct: [id number] Name: PETE BARR Rep #: [id number] : 1960 64 From: Abhilash Hurtado MD Attending Dr: Dr. Suzan Reddy DO Status: R EG CLI Ordering Dr: Suzan Reddy DO Date: 01/01/25 Location: [facility] Sex: M C Admitted: Reason For Study Reason For Study: SLEEP APNEA Procedure This was a 2D Doppler, Color Flow transthoracic echocardiogram. The study was technically difficult. Contrast injection was performed. Exam performed in department. Left Ventricle Normal LV size. Mild concentric left ventricular hypertrophy. Left ventricular systolic function is normal. The left ventricular ejection fraction is 65 %. Stage 1 diastolic dysfunction. No regional wall motion abnormalities noted. Right Ventricle Normal RV size. Atria Normal left atrium. Normal right atrium. Tricuspid Valve Normal tricuspid valve. Mild (1+) tricuspid valve insufficiency. Pulmonary artery systolic pressure is 35 mmHg. Aortic Valve Trisinus/trileaflet aortic valve. Mild focal aortic valve calcification. Pulmonic Valve Normal pulmonic valve. Great Vessels Normal aortic root. Pericardium/Pleural No pericardial effusion. Medication 22 gauge I.V. with prn adaptor inserted into left arm. Diluted definity 2ml given slow IV push to enhance endocardial definition. MMode/2D Measurements Calculations LVIDd: 4.1 cm IVSd: 1.3 cm LVOT diam: 2.2 cm LVIDs: 2.8 cm LVPWd: 1.3 cm LVOT area: 3.8 cm2 RVDd: 3.2 cm FS: 31.5 % CO(Teich): 2.5 l/min asc Aorta Diam: 3.8 cm LAV(MOD-bp): 53.6 ml LAV(MOD-bp) Indexed: 22.3 ml/m2 LAV(MOD-sp2): 63.4 ml LAV(MOD-sp4): 42.2 ml CO(MOD-sp4): 3.8 l/min LVAd ap4: 34.6 cm2 LVAd ap2: 33.2 cm2 SV(MOD-sp4): 69.4 ml LVLd ap4: 8.8 cm LVLd ap2: 8.4 cm EDV(MOD-sp4): 110.6 ml EDV(MOD-sp2): 108.1 ml SI(MOD-sp4): 28.9 ml/m2 EDV(sp4-el): 115.3 ml EDV(sp2-el): 112.2 ml LVAs ap4: 18.8 cm2 LVAs ap2: 17.1 cm2 LVLs ap4: 7.2 cm LVLs ap2: 6.9 cm ESV(MOD-sp4): 41.2 ml ESV(MOD-sp2): 35.3 ml ESV(sp4-el): 41.8 ml ESV(sp2-el): 35.8 ml EF(MOD-sp4): 62.7 % EF(MOD-sp2): 67.4 % EF(sp4-el): 63.8 % SV(MOD-sp2): 72.8 ml SV(sp4-el): 73.5 ml Ao sinus diam: 3.6 cm SI(MOD-sp2): 30.4 ml/m2 Ao ST Junction: 2.6 cm LA dimension(2D): 3.7 cm LA A4 area: 17.6 cm2 TAPSE: 1.9 cm RA A4 area: 11.1 cm2 Time Measurements MV dec time: 0.21 sec Doppler Measurements Calculations MV E max eb: 87.0 cm/sec Lat Peak E' Eb: 10.2 cm/sec Med Peak E' Eb: 9.0 cm/sec MV A max eb: 90.8 cm/sec E/E' lat: 8.5 E/E' med: 9.7 MV E/A: 0.96 MV dec slope: 424.0 cm/sec2 Ao V2 max: 179.3 cm/sec LV V1 max: 148.9 cm/sec Ao max P.9 mmHg LV V1 max P.9 mmHg Ao V2 mean: 127.5 cm/sec LV V1 mean P.4 mmHg Ao mean P.3 mmHg LV V1 mean: 124.5 cm/sec Ao V2 VTI: 42.0 cm LV V1 VTI: 35.2 cm AV (velocity ratio): 0.84 FABIO(I,D): 3.2 cm2 FABIO(V,D): 3.1 cm2 CO(LVOT): 7.1 l/min PA V2 max: 90.5 cm/sec TR max eb: 281.4 cm/sec SV(LVOT): 132.3 ml TR max P.7 mmHg ECHO/Echo Complete W/ Contrast Interpretation Summary Normal LV size. Left ventricular systolic function is normal. The left ventricular ejection fraction is 65 %. Stage 1 diastolic dysfunction. Mild concentric left ventricular hypertrophy. Contrast injection was performed. Ordering Physician: Suzan Reddy Referring Physician: Suzan Reddy M.D. Performed By: Dejah Richard RDCS 01/06/25 1316 Date bAhilash Hurtado MD CC: SPECIAL EVENT ASSISTANTCharuC Connie Flores; Dr. Suzan Reddy DO Date Dictated: 01/01/25 1255 Date Transcribed: 01/06/25 1316 Flaker Tender: Signed Normal [facility] Duplex ultrasound of renal a rtery reportOrdered By: Magdi Abbott on 12-24-2024 Study report [facility] Cardiovascular Services [address] [place] [address] Renal Artery Duplex Ultrasound 12/24/24 0907 MR#: [id number] Acct: [id number] Name: PETE BARR Rep #:[id number] : 1960 64 From: Magdi Abbott MD Attending Dr: Dr. Suzan Reddy, Status: REG CLI Ordering Dr: Suzan Reddy DO Date: 12/24/24 Location: [facility] Sex: M C Admitted: Reason For Study Reason For Study: HTN Right Renal Artery Left Renal Artery Right renal artery ostium 116.7/29.0 Left renal artery ostium 119.8/30.3 RSV/EDV. PSV/EDV. Right renal artery proximal 94.8/26.8 Left renal artery proximal PSV/EDV PSV/EDV. 180.8/39.6 . Right renal artery mid 80.5/21.3 PSV/EDV. Left renal artery mid 174.7/51.9 Right renal artery distal 68.5/19.4 PSV/EDV . PSV/EDV. Left renal artery distal 159.3/42.7 Right RAR 1.23. PSV/EDV. Right Renal Parenchyma Left RAR 1.91. Upper Pole Medula 39.2/9.2 PSV/EDV. Left Renal Parenchyma Right upper pole medulla EDR 0.20 . Left upper pole medulla 35.1/8.7 Right upper pole medulla R.I. 0.77 . PSV/EDV . Upper Chaitanya Cortx 22.0/8.5 PSV/EDV. Left upper pole medulla EDR 0.20 . Right upper pole cortex EDR 0.40 . Left upper pole medulla R.I. 0.75 . Right upper pole cortex R.I. 0.61 . UPCortex 17.5/7.6 PSV/EDV. Right lower Pole medulla 34.3/9.8 Left upper pole cortex EDR 0.40 . PSV/EDV . Left upper pole cortex R.I. 0.56 . Right lower pole medulla EDR 0.30 . Left lower Pole medulla 34.6/8.7 Right lower pole medulla R.I. 0.72 . PSV/EDV . Lower Pole Cortex 20.2/7.3 PSV/EDV. Left lower pole medulla EDR 0.30 . Right lower pole cortex EDR 0.40 . Left lower pole medulla R.I. 0.75 . Right lower pole cortex R.I. 0.64 . Lower Pole Cortx 23.0/7.1 PSV/EDV. Right Renal Hilar Left lower pole cortex EDR 0.30 . Right Hilar avg 71.4/14.2 PSV/EDV. Left lower pole cortex R.I. 0.69 . Right hilar acceleration time 10 m/sec. Left Renal Hilar Right Renal Dimensions LTHilar avg 71.0/23.1 PSV/EDV . Right kidney size 12.54 cm . Left hilar acceleration time 20 m/sec. Right cortical dimension 2.24 cm . Left Renal Dimensions Left kidney size 11.52 cm . Left cortical dimension 1.78 cm . Aorta Proximal abdominal aorta 2.24 x 2.35 cm . Proximal abdominal aorta peak systolicvelocity is 94.8 cm/sec . Distal abdominal aorta 1.75 x 1.96 cm . Distal abdominal aorta peak systolic velocity is 116.1 cm/sec . Procedures Renal Artery Duplex with B-Mode, Color and Pulsed Wave Doppler. Technically difficult study due to Bowel Gas. VL/Renal Artery Duplex Ultrasound Interpretation Summary Dimensions of the intra-abdominal aorta appear normal, without evidence of aneurysmal dilatation. Renal artery velocities are bilaterally normal. Acceleration times are normal bilaterally. Renal-aortic ratios are also bilaterally normal. There is no evidence of hemodynamically significant renal artery stenosis on either side. The right cortical dimension is increased. The left cortical dimension is increased. Kidneys appearnormal in size bilaterally. Ordering Physician: Suzan Reddy Referring Physician: Suzan Reddy Performed By: Jai Durand, RVT 12/24/24 2997 Date _ Magdi Abbott MD CC: SPECIAL EVENT ASSISTANT-C Connie Flores; Dr. Suzan Reddy, ~ Date Dictated: 12/24/24906 Date Transcribed: 12/24/242216 Flaker Tender: Signed [facility] Other Renal Artery Duplex Ultrasou ndon 12-24-2024 Renal Artery Duplex Ultrasound [facility] Cardiovascular Services [address] [place] [address] Renal Artery Duplex Ultrasound 12/24/24906 MR#: [id number] Acct: [id number] Name: PETE BARR Rep #: [id number] : 1960 64 From: Magdi Abbott MD Attending Dr: Dr. Suzan Reddy, Status: R EG CLI Ordering Dr: Suzan Reddy DO Date: 12/24/24 Location: [facility] Sex: M C Admitted: Reason For Study Reason For Study: HTN Right Renal Artery Left Renal Artery Right renal artery ostium 116.7/29.0 Left renal artery ostium 119.8/30.3 RSV/EDV. PSV/EDV. Right renal artery proximal 94.8/26.8 Left renal artery proximal PSV/EDV PSV/EDV. 180.8/39.6 . Right renal artery mid 80.5/21.3 PSV/EDV. Left renal artery mid 174.7/51.9 Right renal artery distal 68.5/19.4 PSV/EDV . PSV/EDV. Left renal artery distal 159.3/42.7 Right RAR 1.23. PSV/EDV. Right Renal Parenchyma Left RAR 1.91. Upper Pole Medula 39.2/9.2 PSV/EDV. Left Renal Parenchyma Right upper pole medulla EDR 0.20 . Left upper pole medulla 35.1/8.7 Right upper pole medulla R.I. 0.77 . PSV/EDV . Upper Chaitanya Cortx 22.0/8.5 PSV/EDV. Left upper pole medulla EDR 0.20 . Right upper pole cortex EDR 0.40 . Left upper pole medulla R.I. 0.75 . Right upper pole cortex R.I. 0.61 . UP Cortex 17.5/7.6 PSV/EDV. Right lower Pole medulla 34.3/9.8 Left upper pole cortex EDR 0.40 . PSV/EDV . Left upper pole cortex R.I. 0.56 . Right lower pole medulla EDR 0.30 . Left lower Pole medulla 34.6/8.7 Right lower pole medulla R.I. 0.72 . PSV/EDV . Lower Pole Cortex 20.2/7.3 PSV/EDV. Left lower pole medulla EDR 0.30 . Right lower pole cortex EDR 0.40 . Left lower pole medulla R.I. 0.75 . Right lower pole cortex R.I. 0.64 . Lower Pole Cortx 23.0/7.1 PSV/EDV. Right Renal Hilar Left lower pole cortex EDR 0.30 . Right Hilar avg 71.4/14.2 PSV/EDV. Left lower pole cortex R.I. 0.69 . Right hilar acceleration time 10 m/sec. Left Renal Hilar Right Renal Dimensions LT Hilar avg 71.0/23.1 PSV/EDV . Right kidney size 12.54 cm . Left hilar acceleration time 20 m/sec. Right cortical dimension 2.24 cm . Left Renal Dimensions Left kidney size 11.52 cm . Left cortical dimension 1.78 cm . Aorta Proximal abdominal aorta 2.24 x 2.35 cm . Proximal abdominal aorta peak systolic velocity is 94.8 cm/sec . Distal abdominal aorta 1.75 x 1.96 cm . Distal abdominal aorta peak systolic velocity is 116.1 cm/sec . Procedures Renal Artery Duplex with B-Mode, Color and Pulsed Wave Doppler. Technically difficult study due to Bowel Gas. VL/Renal Artery Duplex Ultrasound Interpretation Summary Dimensions of the intra-abdominal aorta appear normal, without evidence of aneurysmal dilatation. Renal artery velocities are bilaterally normal. Acceleration times are normal bilaterally. Renal-aortic ratios are also bilaterally normal. There is no evidence of hemodynamically significant renal artery stenosis on either side. The right cortical dimension is increased. The left cortical dimension is increased. Kidneys appear normal in size bilaterally. Ordering Physician: Suzan Reddy Referring Physician: Suzan Reddy Performed By: Jai Durand, RVT 12/24/242216 Date Magdi Abbott MD CC: SPECIAL EVENT ASSISTANT-C Connie Flores; Dr. Suzan Reddy DO Date Dictated: 12/24/24906 Date Transcribed: 12/24/242216 Flaker Tender: Signed Normal [facility] Carotid Duplex Ultrasoundon 08-05-2024 Carotid Duplex Ultrasound [facility] Cardiovascular Services [address] [place] [address]. [place] [address] Carotid Duplex Ultrasound 08/05/24 0759 MR#: [id number] Acct: [id number] Name: PETE BARR Rep #: [id number] : 1960 64 From: Aman Lyon MD Attending Dr: MIRI Roy Status: REG CLI Ordering Dr: Connie Flores SPECIAL EVENT ASSISTANTCharuC Date: 08/05/24 Location: [facility] Sex: M C Admitted: Reason For Study Reason For Study: Dizziness Rt. Velocities/BP Lt. Velocities/BP Prox CCA 97/16 cm/sec. Prox CCA 76/13 cm/sec. Mid CCA 69/19 cm/sec. Mid CCA 69/15 cm/sec. Dist CCA 59/15 cm/sec. Dist CCA 62/10 cm/sec. Prox ICA 89/19 cm/sec. Prox ICA 61/18 cm/sec. Mid ICA 111/29 cm/sec. Mid ICA 79/25 cm/sec. Dist ICA 114/30 cm/sec. Dist ICA 62/19 cm/sec. Rt. ICA/CCA = 1.7. Lt. ICA/CCA = 1.1. Prox ECA 134/15 cm/sec. Prox ECA 122/11 cm/sec. Rt. Vert. 41/8 cm/sec. Lt. Vert. 36/10 cm/sec. Right Extracranial There is heterogeneous, smooth atherosclerotic plaque noted in the right common carotid artery. There is heterogeneous, irregular atherosclerotic plaque noted in the right internal carotid artery. There is no significant atherosclerotic plaque noted in the right external carotid artery. Antegrade flow is noted in the right vertebral artery. Left Extracranial There is heterogeneous, smooth atherosclerotic plaque noted in the left common carotid artery. There is heterogeneous, smooth atherosclerotic plaque noted in the left internal carotid artery. There is heterogeneous, smooth atherosclerotic plaque noted in the left external carotid artery. Antegrade flow is noted in the left vertebral artery. Procedure Carotid Duplex 89751. This is a Carotid Duplex examination using B-mode, color flow and specral Doppler. Exam performed in department. VL/Carotid Duplex Ultrasound Interpretation Summary Mild (<50%) stenosis right extracranial internal carotid. Mild (<50%) stenosis left extracranial internal carotid. Patent and antegrade vertebrals bilaterally. Ordering Physician: Connie Flores Referring Physician: Connie Flores Performed By: Shila Seaman, RDCS, RVT 08/05/24 1352 Date Aman Lyon MD CC: SPECIAL EVENT ASSISTANT-C Connie Flores Date Dictated: 08/05/24 0759 Date Transcribed: 08/05/24 135 Flaker Tender: Signed Normal [facility] Duplex ultrasound of carotid artery reportOrdered By: Aman Lyon on 08-05-2024 Study report [facility] Cardiovascular Services [address] [place] [address] Carotid Duplex Ultrasound 08/05/24 0759 MR#: [id number] Acct: [id number] Name: PETE BARR Rep #:[id number] : 1960 64 From: Aman Ochoa Attending Dr: Connie Flores NP-C Status: REG CLI Ordering Dr: Connie Flores SPECIAL EVENT ASSISTANT-C Date: 08/05/24 Location: [facility] Sex: M C Admitted: Reason For Study Reason For Study: Dizziness Rt. Velocities/BP Lt. Velocities/BP Prox CCA 97/16 cm/sec. Prox CCA 76/13 cm/sec. Mid CCA 69/19 cm/sec. Mid CCA 69/15 cm/sec. Dist CCA 59/15 cm/sec. Dist CCA 62/10 cm/sec. Prox ICA 89/19 cm/sec. Prox ICA 61/18 cm/sec. Mid ICA 111/29 cm/sec. Mid ICA 79/25 cm/sec. Dist ICA 114/30 cm/sec. Dist ICA 62/19 cm/sec. Rt. ICA/CCA = 1.7. Lt. ICA/CCA = 1.1. Prox ECA 134/15 cm/sec. Prox ECA 122/11 cm/sec. Rt. Vert. 41/8 cm/sec. Lt. Vert. 36/10 cm/sec. Right Extracranial There is heterogeneous, smooth atherosclerotic plaque noted in the right common carotid artery. There is heterogeneous, irregular atherosclerotic plaque noted in the right internal carotid artery. There is no significant atherosclerotic plaque noted in the right external carotid artery. Antegrade flow is noted in the right vertebral artery. Left Extracranial There is heterogeneous, smooth atherosclerotic plaque noted in the left common carotid artery. There is heterogeneous, smooth atherosclerotic plaque noted in the left internal carotid artery. There is heterogeneous, smooth atherosclerotic plaque noted in the left external carotid artery. Antegrade flow is noted in theleft vertebral artery. Procedure Carotid Duplex 05143. This is a Carotid Duplex examination using B-mode, color flow and specral Doppler. Exam performed in department. VL/Carotid Duplex Ultrasound Interpretation Summary Mild (<50%) stenosis right extracranial internal carotid. Mild (<50%) stenosis left extracranial internal carotid. Patent and antegrade vertebrals bilaterally. Ordering Physician: Connie Flores Referring Physician: Connie Flores Performed By: Shila Seaman, ANSHUL, RVT 08/05/24 1352 Date _ Aman Lyon MD CC: SPECIAL EVENT ASSISTANT-C Connie Flores ~ Date Dictated: 08/05/24 0759 Date Transcribed: 08/05/24 135 Flaker Tender: Signed [facility] Work Phone: [facility] 12-09-2022 Bili Indirect 0.8 mg/dL Normal [facility] ([place]) Comment on above: Performed By: #### L IPID, GFR, CMP, TSH, ANEU, ADIFF, CBC #### [address] [address] Albumin Level 3.8 G/dL Normal 3.4-4.8 [facility] ([place]) Comment on above: Performed By: #### L IPID, GFR, CMP, TSH, ANEU, ADIFF, CBC #### [address] [address] Albumin/Globulin [Mass ratio] 1.4 {ratio} Normal 1.1-2.5 [facility] ([place]) Comment on above: Performed By: #### L IPID, GFR, CMP, TSH, ANEU, ADIFF, CBC #### [address] [place], [place] [address] ALP [Catalytic activity/Vol] 46 U/L Normal 40-135 [facility] ([place] Comment on above: Performed By: #### L IPID, GFR, CMP, TSH, ANEU, ADIFF, CBC #### [address] [address] ALT [Catalytic activity/Vol] 40 U/L Normal 16-63 [facility] ([place] Comment on above: Performed By: #### L IPID, GFR, CMP, TSH, ANEU, ADIFF, CBC #### [address] [address] AST [Catalytic activity/Vol] 15 U/L Normal 10-40 [facility] ([place] Comment on above: Performed By: #### L IPID, GFR, CMP, TSH, ANEU, ADIFF, CBC #### [address] [address] Bili Direct 0.2 mg/dL Normal 0.0-0.2 [facility] ([place]) Comment on above: Result Comment: Use of this assay is not recommended for patients undergoing treatment with eltrombopag due to the potential for falsely elevated results. Performed By: #### L IPID, GFR, CMP, TSH, ANEU, ADIFF, CBC #### [address] [address] Bili Total 1.0 mg/dL Normal 0.2-1.0 [facility] ([place] Comment on above: Result Comment: Use of this assay is not recommended for patients undergoing treatment with eltrombopag due to the potential for falsely elevated results. Performed By: #### L IPID, GFR, CMP, TSH, ANEU, ADIFF, CBC #### [address] [address] Globulin 2.8 G/dL Normal [facility] ([place] Comment on above: Performed By: #### L IPID, GFR, CMP, TSH, ANEU, ADIFF, CBC #### [address] [address] Total Protein 6.6 G/dL Normal 6.4-8.2 [facility] ([place]) Comment on above: Performed By: #### L IPID, GFR, CMP, TSH, ANEU, ADIFF, CBC #### [address] [address] .Auto Diffon 11-25-2022 Basophil, Absolute 0.0 10 3/mcL Normal 0.0-0.2 [facility] ([place]) Comment on above: Performed By: #### L IPID, GFR, CMP, TSH, ANEU, ADIFF, CBC #### [address] [address] Basophils/100 WBC (Bld) 0.3 % Normal 0.0-2.5 [facility] ([place] Comment on above: Performed By: #### L IPID, GFR, CMP, TSH, ANEU, ADIFF, CBC #### [address] [address] Eosinophil, Absolute 0.2 10 3/mcL Normal 0.0-0.4 [facility] ([place]) Comment on above: Performed By: #### L IPID, GFR, CMP, TSH, ANEU, ADIFF, CBC #### [address] [address] Eosinophils/100 WBC (Bld) 3.9 % Normal 0.0-7.0 [facility] ([place] Comment on above: Performed By: #### L IPID, GFR, CMP, TSH, ANEU, ADIFF, CBC #### [address] [address] Lymphocyte, Absolute 1.4 10 3/mcL Normal 0.8-3.9 [facility] ([place] Comment on above: Performed By: #### L IPID, GFR, CMP, TSH, ANEU, ADIFF, CBC #### [address] [address] Lymphocytes/100 WBC (Bld) 22.5 % Normal 10.0-50.0 [facility] ([place] Comment on above: Performed By: #### L IPID, GFR, CMP, TSH, ANEU, ADIFF, CBC #### [address] [address] Monocyte, Absolute 0.6 10 3/mcL Normal 0.2-1.0 [facility] ([place] Comment on above: Performed By: #### L IPID, GFR, CMP, TSH, ANEU, ADIFF, CBC #### [address] [address] Monocytes/100 WBC (Bld) 9.6 % Normal 1.7-13.0 [facility] ([place] Comment on above: Performed By: #### L IPID, GFR, CMP, TSH, ANEU, ADIFF, CBC #### [address] [address] Neutrophils/100 WBC (Bld) 63.7 % Normal 37.0-80.0 [facility] ([place] Comment on above: Performed By: #### L IPID, GFR, CMP, TSH, ANEU, ADIFF, CBC #### [address] [address] .GFRon 11-25-2022 GFR Non- 86 ml/min/1.73sqm Normal [facility] ([place] Comment on above: Result Comment: GFR Population mean for , Non- Americans Ages 20-29 = 116 mL/min/1.73 sq.m. Ages 30-39 = 107 mL/min/1.73 sq.m. Ages 40-49 = 99 mL/min/1.73 sq.m. Ages 50-59 = 93 mL/min/1.73 sq.m. Ages 60-69 = 85 mL/min/1.73 sq.m. Ages 70+ = 75 mL/min/1.73 sq.m. Chronic Kidney Disease: Less than 60 mL/min/1.73 square meters End Stage Renal Disease: Less than 15 mL/min/1.73 square meters Performed By: #### L IPID, GFR, CMP, TSH, ANEU, ADIFF, CBC #### [address] [address] GFR 105 ml/min/1.73sqm Normal [facility] ([place] Comment on above: Result Comment: GFR Population mean for , Non- Americans Ages 20-29 = 116 mL/min/1.73 sq.m. Ages 30-39 = 107 mL/min/1.73 sq.m. Ages 40-49 = 99 mL/min/1.73 sq.m. Ages 50-59 = 93 mL/min/1.73 sq.m. Ages 60-69 = 85 mL/min/1.73 sq.m. Ages 70+ = 75 mL/min/1.73 sq.m. Chronic Kidney Disease: Less than 60 mL/min/1.73 square meters End Stage Renal Disease: Less than 15 mL/min/1.73 square meters Performed By: #### L IPID, GFR, CMP, TSH, ANEU, ADIFF, CBC #### [address] [address] .NEUABSon 11-25-2022 Neutrophil, Absolute 4.0 10 3/mcL Normal 2.9-6.2 [facility] ([place] Comment on above: Performed By: #### L IPID, GFR, CMP, TSH, ANEU, ADIFF, CBC #### [place] [address] .Urinalysis Microscopic (AO) on 11-25-2022 UA Bacteria 2+ /hpf Abnormal [facility] ([place]) Comment on above: Performed By: #### Brain Mcdaniel, BILL #### [place] [address] UA Hyal Cast 10-15 Abnormal [facility] ([place]) Comment on above: Performed By: #### U A, MAREKBR #### [address] [address] UA Mucous 3+ /hpf Normal [facility] ([place] Comment on above: Performed By: #### U A, MALBR #### [address] [address] UA RBC 0-5 Abnormal None Seen [facility] ([place] Comment on above: Performed By: #### U A, MALBR #### [address] [address] UA Squam Epithelial 0-5 Abnormal None Seen [facility] ([place] Comment on above: Performed By: #### U A, MALBR #### [address] [address] UA WBC 0-5 Abnormal None Seen [facility] ([place] Comment on above: Performed By: #### U BILL Mcdaniel #### [address] [address] CBCon 11-25-2022 Erythrocyte distribution width (RBC) [Ratio] 13.7 % Normal 11.5-14.5 [facility] ([place] Comment on above: Performed By: #### L IPID, GFR, CMP, TSH, ANEU, ADIFF, CBC #### [address] [address] Hematocrit (Bld) [Volume fraction] 43.1 % Normal 42.0-52.0 [facility] ([place] Comment on above: Performed By: #### L IPID, GFR, CMP, TSH, ANEU, ADIFF, CBC #### [place] [address] Hgb 14.8 G/dL Normal 14.0-18.0 [facility] ([place] Comment on above: Performed By: #### L IPID, GFR, CMP, TSH, ANEU, ADIFF, CBC #### [address] [address] MCH (RBC) [Entitic mass] 31.4 pg High 27.0-31.2 [facility] ([place] Comment on above: Performed By: #### L IPID, GFR, CMP, TSH, ANEU, ADIFF, CBC #### [address] [address] MCHC 34.3 G/dL Normal 31.8-35.4 [facility] ([place] Comment on above: Performed By: #### L IPID, GFR, CMP, TSH, ANEU, ADIFF, CBC #### [address] [address] MCV (RBC) [Entitic vol] 91.5 fL Normal 80.0-94.0 [facility] ([place] Comment on above: Performed By: #### L IPID, GFR, CMP, TSH, ANEU, ADIFF, CBC #### [address] [address] Platelet 196 10 3/mcL Normal 130-400 [facility] ([place] Comment on above: Performed By: #### L IPID, GFR, CMP, TSH, ANEU, ADIFF, CBC #### [address] [address] Platelet mean volume (Bld) [Entitic vol] 9.1 fL Normal 7.4-10.4 [facility] ([place] Comment on above: Performed By: #### L IPID, GFR, CMP, TSH, ANEU, ADIFF, CBC #### [address] [address] RBC 4.71 10 6/mcL Normal 4.04-6.13 [facility] ([place]) Comment on above: Performed By: #### L IPID, GFR, CMP, TSH, ANEU, ADIFF, CBC #### [address] [address] WBC 6.3 10 3/mcL Normal 4.6-10.8 [facility] ([place] Comment on above: Performed By: #### L IPID, GFR, CMP, TSH, ANEU, ADIFF, CBC #### [address] [address] CMPon 11-25-2022 Albumin Level 3.9 G/dL Normal 3.4-4.8 [facility] ([place] Comment on above: Performed By: #### L IPID, GFR, CMP, TSH, ANEU, ADIFF, CBC #### [address] [address] Albumin/Globulin [Mass ratio] 1.4 {ratio} Normal 1.1-2.5 [facility] ([place] Comment on above: Performed By: #### L IPID, GFR, CMP, TSH, ANEU, ADIFF, CBC #### [address] [address] ALP [Catalytic activity/Vol] 55 U/L Normal 40-135 [facility] ([place] Comment on above: Performed By: #### L IPID, GFR, CMP, TSH, ANEU, ADIFF, CBC #### [address] [address] ALT [Catalytic activity/Vol] 32 U/L Normal 16-63 [facility] ([place] Comment on above: Performed By: #### L IPID, GFR, CMP, TSH, ANEU, ADIFF, CBC #### [address] [address] AST [Catalytic activity/Vol] 19 U/L Normal 10-40 [facility] ([place] Comment on above: Performed By: #### L IPID, GFR, CMP, TSH, ANEU, ADIFF, CBC #### [address] [address] Bili Total 1.4 mg/dL High 0.2-1.0 [facility] ([place] Comment on above: Result Comment: Use of this assay is not recommended for patients undergoing treatment with eltrombopag due to the potential for falsely elevated results. Performed By: #### L IPID, GFR, CMP, TSH, ANEU, ADIFF, CBC #### [address] [address] BUN/Creatinine Ratio 13 ratio Normal 7-27 [facility] ([place] Comment on above: Performed By: #### L IPID, GFR, CMP, TSH, ANEU, ADIFF, CBC #### [address] [address] Calcium [Mass/Vol] 9.4 mg/dL Normal 8.4-10.2 [facility] ([place] Comment on above: Performed By: #### L IPID, GFR, CMP, TSH, ANEU, ADIFF, CBC #### [address] [address] Chloride [Moles/Vol] 103 mmol/L Normal 98-107 [facility] ([place] Comment on above: Performed By: #### L IPID, GFR, CMP, TSH, ANEU, ADIFF, CBC #### [address] [address] CO2 [Moles/Vol] 32 mmol/L High 23-31 [facility] ([place]) Comment on above: Performed By: #### L IPID, GFR, CMP, TSH, ANEU, ADIFF, CBC #### [address] [address] Creatinine [Mass/Vol] 0.89 mg/dL Normal 0.70-1.30 [facility] ([place] Comment on above: Performed By: #### L IPID, GFR, CMP, TSH, ANEU, ADIFF, CBC #### [address] [address] Electrolyte Balance 6.0 mEq/L Normal 4.0-15.0 [facility] ([place]) Comment on above: Performed By: #### L IPID, GFR, CMP, TSH, ANEU, ADIFF, CBC #### [place] [address] Globulin 2.8 G/dL Normal [facility] ([place] Comment on above: Performed By: #### L IPID, GFR, CMP, TSH, ANEU, ADIFF, CBC #### [address] [address] Glucose [Mass/Vol] 98 mg/dL Normal 80-115 [facility] ([place] Comment on above: Performed By: #### L IPID, GFR, CMP, TSH, ANEU, ADIFF, CBC #### [address] [address] Potassium [Moles/Vol] 4.2 mmol/L Normal 3.5-5.1 [facility] ([place] Comment on above: Performed By: #### L IPID, GFR, CMP, TSH, ANEU, ADIFF, CBC #### [address] [address] Sodium [Moles/Vol] 141 mmol/L Normal 136-145 [facility] ([place] Comment on above: Performed By: #### L IPID, GFR, CMP, TSH, ANEU, ADIFF, CBC #### [address] [address] Total Protein 6.7 G/dL Normal 6.4-8.2 [facility] ([place]) Comment on above: Performed By: #### L IPID, GFR, CMP, TSH, ANEU, ADIFF, CBC #### [address] [address] Urea nitrogen [Mass/Vol] 12 mg/dL Normal 7-18 [facility] ([place] Comment on above: Performed By: #### L IPID, GFR, CMP, TSH, ANEU, ADIFF, CBC #### [address] [address] LIPIDon 11-25-2022 Cholesterol [Mass/Vol] 197 mg/dL Normal 0-200 [facility] ([place]) Comment on above: Result Comment: Chol esterol Reference Interval: Less than 200 Desirable 200-239 Borderline high risk 240 and above High risk Performed By: #### L IPID, GFR, CMP, TSH, ANEU, ADIFF, CBC #### [address] [address] Cholesterol in HDL [Mass/Vol] 56 mg/dL Normal 40-60 [facility] ([place]) Comment on above: Performed By: #### L IPID, GFR, CMP, TSH, ANEU, ADIFF, CBC #### [address] [address] Cholesterol in LDL [Mass/Vol] 113 mg/dL Normal 0-130 [facility] ([place] Comment on above: Performed By: #### L IPID, GFR, CMP, TSH, ANEU, ADIFF, CBC #### [address] [address] Triglyceride [Mass/Vol] 140 mg/dL Normal 0-150 [facility] ([place]) Comment on above: Result Comment: Trig lyceride Reference Interval: Less than 150 Normal 150-199 Borderline high risk 200-499 High risk 500 or higher Very high risk Performed By: #### L IPID, GFR, CMP, TSH, ANEU, ADIFF, CBC #### Kris [address] [address] MALBRon 11-25-2022 U Creatinine 286.4 mg/dL High 39.0-259.0 [facility] ([place]) Comment on above: Performed By: #### U CAILIN RUBIN, MALBR #### Kris [address] [address] U Microalb [address] mcg/dL Normal [facility] ([place]) Comment on above: Performed By: #### U CAILIN RUBIN, MALBR #### Kris [address] [address] U Ratio Alb/Cre 55 mcg/mg High 0-30 [facility] ([place]) Comment on above: Performed By: #### U CAILIN RUBIN, MALBR #### Kris [address] [address] TSHon 11-25-2022 TSH Qn 1.80 m[IU]/L Normal 0.36-3.74 [facility] ([place]) Comment on above: Performed By: #### L IPID, GFR, CMP, TSH, ANEU, ADIFF, CBC #### Kris [address] [address] UAon 11-25-2022 Color (U) Yellow Normal [facility] ([place]) Comment on above: Performed By: #### U A, MAREKBR #### Kris [address] [address] Glucose (U) [Mass/Vol] Negative Normal Negative [facility] ([place]) Comment on above: Performed By: #### U A, MALBR #### Kris [address] [address] Ketones Ql (U) Negative Normal Negative [facility] ([place]) Comment on above: Performed By: #### U A, MALBR #### Kris [address] [address] UA Appear Clear Normal Clear [facility] ([place] Comment on above: Performed By: #### U A, MALBR #### Kris [address] [address] UA Blood Negative Normal Negative [facility] ([place] Comment on above: Performed By: #### U Violeta, MALBR #### Kris [address] [address] UA Leuk Est Negative Normal Negative [facility] ([place]) Comment on above: Performed By: #### U Violeta, MALBR #### Kris [address] [address] UA Nitrite Negative Normal Negative [facility] ([place] Comment on above: Performed By: #### U A, MALBR #### Kris [address] [address] UA pH 6.5 Normal 5.0 - 8.0 [facility] ([place] Comment on above: Performed By: #### U Violeta, MALBR #### Kris [address] [address] UA Protein 100 mg/dL Abnormal Negative [facility] ([place] Comment on above: Performed By: #### U Violeta, MALBR #### [address] [address] UA Spec Grav 1.025 Normal 1.015-1.02 5 [facility] ([place] Comment on above: Performed By: #### U Violeta, MALBR #### Kris [address] [address] UA Specimen Type Not Given Normal [facility] ([place] Comment on above: Performed By: #### U A, MALBR #### Kris [address] [address] UA Urobilinogen 0.2 E.U./dL Normal 0.2-1.0 [facility] ([place] Comment on above: Performed By: #### U A, MALBR #### Kris [address] [address] Urobilinogen (U) [Mass/Vol] Negative Normal Negative [facility] ([place] Comment on above: Performed By: #### U A, MALBR #### [address] [address] .Auto Diffon 04-15-2022 Basophil, Absolute 0.0 10 3/mcL Normal 0.0-0.2 [facility] ([place]) Comment on above: Performed By: #### U A, MALBR #### [address] [address] Basophils/100 WBC (Bld) 0.4 % Normal 0.0-2.5 [facility] ([place] Comment on above: Performed By: #### U A, MALBR #### [address] [address] Eosinophil, Absolute 0.3 10 3/mcL Normal 0.0-0.4 [facility] ([place]) Comment on above: Performed By: #### U A, MALBR #### [address] [address] Eosinophils/100 WBC (Bld) 4.8 % Normal 0.0-7.0 [facility] ([place]) Comment on above: Performed By: #### U A, MALBR #### [address] [address] Lymphocyte, Absolute 1.2 10 3/mcL Normal 0.8-3.9 [facility] ([place]) Comment on above: Performed By: #### U A, MALBR #### [address] [address] Lymphocytes/100 WBC (Bld) 18.8 % Normal 10.0-50.0 [facility] ([place]) Comment on above: Performed By: #### U A, MALBR #### [address] [address] Monocyte, Absolute 0.6 10 3/mcL Normal 0.2-1.0 [facility] ([place]) Comment on above: Performed By: #### U A, MALBR #### [address] [address] Monocytes/100 WBC (Bld) 8.5 % Normal 1.7-13.0 [facility] ([place] Comment on above: Performed By: #### Brain Mcdaniel, BILL #### [address] [address] Neutrophils/100 WBC (Bld) 67.5 % Normal 37.0-80.0 [facility] ([place] Comment on above: Performed By: #### Brain Mcdaniel, BILL #### Kris [place] [address] [place], [place] [address] .GFRon 04-15-2022 GFR 117 ml/min/1.73sqm Normal [facility] ([place] Comment on above: Result Comment: GFR Population mean for , Non- Americans Ages 20-29 = 116 mL/min/1.73 sq.m. Ages 30-39 = 107 mL/min/1.73 sq.m. Ages 40-49 = 99 mL/min/1.73 sq.m. Ages 50-59 = 93 mL/min/1.73 sq.m. Ages 60-69 = 85 mL/min/1.73 sq.m. Ages 70+ = 75 mL/min/1.73 sq.m. Chronic Kidney Disease: Less than 60 mL/min/1.73 square meters End Stage Renal Disease: Less than 15 mL/min/1.73 square meters Performed By: #### U Violeta, BILL #### [address] [address] GFR Non- 97 ml/min/1.73sqm Normal [facility] ([place] Comment on above: Result Comment: GFR Population mean for , Non- Americans Ages 20-29 = 116 mL/min/1.73 sq.m. Ages 30-39 = 107 mL/min/1.73 sq.m. Ages 40-49 = 99 mL/min/1.73 sq.m. Ages 50-59 = 93 mL/min/1.73 sq.m. Ages 60-69 = 85 mL/min/1.73 sq.m. Ages 70+ = 75 mL/min/1.73 sq.m. Chronic Kidney Disease: Less than 60 mL/min/1.73 square meters End Stage Renal Disease: Less than 15 mL/min/1.73 square meters Performed By: #### BILL Perez #### [address] [address] .NEUABSon 04-15-2022 Neutrophil, Absolute 4.5 10 3/mcL Normal 2.9-6.2 [facility] ([place]) Comment on above: Performed By: #### BILL Perez #### [place] [address] CBCon 04-15-2022 Erythrocyte distribution width (RBC) [Ratio] 13.6 % Normal 11.5-14.5 [facility] ([place] Comment on above: Performed By: #### BILL Perez #### [place] [address] Hematocrit (Bld) [Volume fraction] 41.1 % Low 42.0-52.0 [facility] ([place] Comment on above: Performed By: #### BILL Perez #### [place] [address]47 Hgb 14.3 G/dL Normal 14.0-18.0 [facility] ([place] Comment on above: Performed By: #### BILL Perez #### [place] [address] MCH (RBC) [Entitic mass] 32.1 pg High 27.0-31.2 [facility] ([place] Comment on above: Performed By: #### BILL Perez #### [place] [address]47 MCHC 34.8 G/dL Normal 31.8-35.4 [facility] ([place] Comment on above: Performed By: #### BILL Perez #### [place] [id number] MCV (RBC) [Entitic vol] 92.3 fL Normal 80.0-94.0 [facility] ([place] Comment on above: Performed By: #### BILL Perez #### [place] [address]3247 Platelet 192 10 3/mcL Normal 130-400 [facility] ([place] Comment on above: Performed By: #### BILL Perez #### Kris [address] [address] Platelet mean volume (Bld) [Entitic vol] 9.2 fL Normal 7.4-10.4 [facility] ([place] Comment on above: Performed By: #### Brain Mcdaniel, BILL #### Kris [address] [address] RBC 4.46 10 6/mcL Normal 4.04-6.13 [facility] ([place]) Comment on above: Performed By: #### BILL Perez #### Kris [address] [address] WBC 6.6 10 3/mcL Normal 4.6-10.8 [facility] ([place] Comment on above: Performed By: #### BILL Perez #### [address] [address] CMPon 04-15-2022 Albumin Level 3.7 G/dL Normal 3.4-4.8 [facility] ([place]) Comment on above: Performed By: #### BILL Perez #### [address] [address] Albumin/Globulin [Mass ratio] 1.4 {ratio} Normal 1.1-2.5 [facility] ([place] Comment on above: Performed By: #### BILL Perez #### Kris [address] [address] ALP [Catalytic activity/Vol] 53 U/L Normal 40-135 [facility] ([place] Comment on above: Performed By: #### BILL Perez #### Kris [address] [address] ALT [Catalytic activity/Vol] 53 U/L Normal 16-63 [facility] ([place] Comment on above: Performed By: #### BILL Perez #### [address] [address] AST [Catalytic activity/Vol] 21 U/L Normal 10-40 [facility] ([place] Comment on above: Performed By: #### U A, MALBR #### [address] [address] Bili Total 1.0 mg/dL Normal 0.2-1.0 [facility] ([place] Comment on above: Result Comment: Use of this assay is not recommended for patients undergoing treatment with eltrombopag due to the potential for falsely elevated results. Performed By: #### U A, MALBR #### [address] [address] BUN/Creatinine Ratio 21 ratio Normal 7-27 [facility] ([place]) Comment on above: Performed By: #### U A, MALBR #### [address] [address] Calcium [Mass/Vol] 9.0 mg/dL Normal 8.4-10.2 [facility] ([place] Comment on above: Performed By: #### U A, MALBR #### [address] [address] Chloride [Moles/Vol] 106 mmol/L Normal 98-107 [facility] ([place]) Comment on above: Performed By: #### U A, MALBR #### [address] [address] CO2 [Moles/Vol] 32 mmol/L High 23-31 [facility] ([place] Comment on above: Performed By: #### U A, MALBR #### [address] [address] Creatinine [Mass/Vol] 0.81 mg/dL Normal 0.70-1.30 [facility] ([place] Comment on above: Performed By: #### U A, MALBR #### [address] [address] Electrolyte Balance 6.0 mEq/L Normal 4.0-15.0 [facility] ([place] Comment on above: Performed By: #### U A, MALBR #### [address] [address] Globulin 2.6 G/dL Normal [facility] ([place] Comment on above: Performed By: #### U A, MALBR #### [address] [address] Glucose [Mass/Vol] 92 mg/dL Normal 80-115 [facility] ([place] Comment on above: Performed By: #### U A, MALBR #### [address] [address] Potassium [Moles/Vol] 4.5 mmol/L Normal 3.5-5.1 [facility] ([place] Comment on above: Performed By: #### U A, MALBR #### [address] [address] Sodium [Moles/Vol] 144 mmol/L Normal 136-145 [facility] ([place] Comment on above: Performed By: #### U A, MALBR #### [address] [address] Total Protein 6.3 G/dL Low 6.4-8.2 [facility] ([place] Comment on above: Performed By: #### U A, MALBR #### [address] [address] Urea nitrogen [Mass/Vol] 17 mg/dL Normal 7-18 [facility] ([place] Comment on above: Performed By: #### U A, MALBR #### [address] [address] LIPIDon 04-15-2022 Cholesterol [Mass/Vol] 179 mg/dL Normal 0-200 [facility] ([place] Comment on above: Result Comment: Chol esterol Reference Interval: Less than 200 Desirable 200-239 Borderline high risk 240 and above High risk Performed By: #### U A, MALBR #### [address] [address] Cholesterol in HDL [Mass/Vol] 56 mg/dL Normal 40-60 [facility] ([place] Comment on above: Performed By: #### U Violeta, MAREKBR #### [address] [address] Cholesterol in LDL [Mass/Vol] 100 mg/dL Normal 0-130 [facility] ([place] Comment on above: Performed By: #### U Violeta, MALBR #### [address] [address] Triglyceride [Mass/Vol] 115 mg/dL Normal 0-150 [facility] ([place] Comment on above: Result Comment: Trig lyceride Reference Interval: Less than 150 Normal 150-199 Borderline high risk 200-499 High risk 500 or higher Very high risk Performed By: #### Brain Mcdaniel, MALBR #### [address] [address] MALBRon 04-15-2022 U Creatinine 167.6 mg/dL Normal 39.0-259.0 [facility] ([place] Comment on above: Performed By: #### Brain Mcdaniel, MALBR #### [address] [address] U Microalb 4679 mcg/dL Normal [facility] ([place]) Comment on above: Performed By: #### U Violeta, MALBR #### [address] [address] U Ratio Alb/Cre 28 mcg/mg Normal 0-30 [facility] ([place]) Comment on above: Performed By: #### U A, MALBR #### [address] [address] PSAon 04-15-2022 Prostate Specific Antigen 1.31 ng/mL Normal 0.00-4.00 [facility] ([place] Comment on above: Performed By: #### L IPID, GFR, CMP, TSH, ANEU, ADIFF, CBC #### [address] [address] TSHon 04-15-2022 TSH Qn 1.33 m[IU]/L Normal 0.36-3.74 [facility] ([place] Comment on above: Performed By: #### U A, MALBR #### Kris [address] [address] UAon 04-15-2022 Color (U) Yellow Normal [facility] ([place]) Comment on above: Performed By: #### U A, MALBR #### Kris [address] [address] Glucose (U) [Mass/Vol] Negative Normal Negative [facility] ([place] Comment on above: Performed By: #### U A, MALBR #### Kris [address] [address] Ketones Ql (U) Negative Normal Negative [facility] ([place]) Comment on above: Performed By: #### U A, MALBR #### Kris [address] [address] UA Appear Clear Normal Clear [facility] ([place] Comment on above: Performed By: #### U A, MALBR #### Kris [address] [address] UA Blood Negative Normal Negative [facility] ([place] Comment on above: Performed By: #### U A, MALBR #### Kris [address] [address] UA Leuk Est Negative Normal Negative [facility] ([place] Comment on above: Performed By: #### U A, MALBR #### Kris [address] [address] UA Nitrite Negative Normal Negative [facility] ([place] Comment on above: Performed By: #### U A, MALBR #### Kris [address] [address] UA pH 5.5 Normal 5.0 - 8.0 [facility] ([place] Comment on above: Performed By: #### U A, MALBR #### Kris [address] [address] UA Protein Negative Normal Negative [facility] ([place] Comment on above: Performed By: #### U A, MALBR #### [address] [address] UA Spec Grav >=1.030 Abnormal 1.015-1.02 5 [facility] ([place] Comment on above: Performed By: #### U A, MALBR #### [address] [address] UA Specimen Type Not Given Normal [facility] ([place] Comment on above: Performed By: #### U A, MALBR #### [address] [address] UA Urobilinogen 0.2 E.U./dL Normal 0.2-1.0 [facility] ([place] Comment on above: Performed By: #### U A, MALBR #### [address] [address] Urobilinogen (U) [Mass/Vol] Negative Normal Negative [facility] ([place] Comment on above: Performed By: #### U A, MALBR #### [address] [address] URICon 04-15-2022 Uric Acid Lvl 7.0 mg/dL Normal 3.5-7.2 [facility] ([place]) Comment on above: Performed By: #### U A, MALBR #### [address] [address] INHOUSE Rapid Covid/ Flu A/ Flu Bon 04-06-2021 SARS-CoV-2 (COVID-19) RNA NICOLE+probe Ql (Unsp spec) Positive Normal [facility]; [facility] Work Phone: CBC with auto diff ([id number])Or dered By: Broomcorn Thresher on 03-24-2021 Basophils (Bld) [#/Vol] 0.0 10*3/uL Normal 0.0-0.2 [facility]; [facility] Work Phone: Comment on above: PATIENT WAS FASTINGP ERFORMED BY: [facility]CoEast [facility] CenterZctmqc3014 [facility] [id number] Basophils/100 WBC (Bld) 0 % Normal [facility]; [facility] Work Phone: Comment on above: PATIENT WAS FASTINGP ERFORMED BY: DENTON Chi6370 Weaver RoadIkerblin [place] [id number] Eosinophils (Bld) [#/Vol] 0.2 10*3/uL Normal 0.0-0.4 [facility]; [facility] Work Phone: Comment on above: PATIENT WAS FASTINGP ERFORMED BY: [facility] Dtszed3945 Weaver RoadUnc Healthin [place] [id number] Eosinophils/100 WBC (Bld) 4 % Normal [facility]; [facility] Work Phone: Comment on above: PATIENT WAS FASTINGP ERFORMED BY: DENTON Gilmar Pekmtu[address] [facility] [id number] Erythrocyte distribution width (RBC) [Ratio] 13.1 % Normal 11.6-15.4 [facility]; [facility] Work Phone: Comment on above: PATIENT WAS FASTINGP ERFORMED BY: DENTON [facility] [id number] [facility] [id number] Hematocrit (Bld) [Volume fraction] 42.7 % Normal 37.5-51.0 [facility]; [facility] Work Phone: Comment on above: PATIENT WAS FASTINGP ERFORMED BY: [facility] [id number] [address] [facility] [id number] Hemoglobin (Bld) [Mass/Vol] 14.7 g/dL Normal 13.0-17.7 [facility]; [facility] Work Phone: Comment on above: PATIENT WAS FASTINGP ERFORMED BY: [facility] Cawyxp7795 Weaver RoadUnc Healthin [place] [id number] Immature granulocytes (Bld) [#/Vol] 0.0 10*3/uL Normal 0.0-0.1 [facility]; [facility] Work Phone: Comment on above: PATIENT WAS FASTINGP ERFORMED BY: DENTON Gilmar Vphwwn3971 [facility] [id number] Immature granulocytes/100 WBC (Bld) 0 % Normal [facility]; [facility] Work Phone: Comment on above: PATIENT WAS FASTINGP ERFORMED BY: DENTON Gilmar Yjfqlh7304 [facility] [id number] Lymphocytes (Bld) [#/Vol] 0.9 10*3/uL Normal 0.7-3.1 [facility]; [facility] Work Phone: Comment on above: PATIENT WAS FASTINGP ERFORMED BY: DENTON [place] [id number] [facility] [id number] Lymphocytes/100 WBC (Bld) 18 % Normal [facility]; [facility] Work Phone: Comment on above: PATIENT WAS FASTINGP ERFORMED BY: [address] [id number] MCH (RBC) [Entitic mass] 32.3 pg Normal 26.6-33.0 [facility]; [facility] Work Phone: Comment on above: PATIENT WAS FASTINGP ERFORMED BY: [facility] Efzrsa8371 [facility] [id number] MCHC (RBC) [Mass/Vol] 34.4 g/dL Normal 31.5-35.7 [facility]; [facility] Work Phone: Comment on above: PATIENT WAS FASTINGP ERFORMED BY: [place] [id number] [facility] [id number] MCV (RBC) [Entitic vol] 94 fL Normal 79-97 [facility]; [facility] Work Phone: Comment on above: PATIENT WAS FASTINGP ERFORMED BY: [facility] Hxcwbi4969 [facility] [id number] Monocytes (Bld) [#/Vol] 0.5 10*3/uL Normal 0.1-0.9 [facility]; [facility] Work Phone: Comment on above: PATIENT WAS FASTINGP ERFORMED BY: DENTON [facility] Jrmdpp8582 [address] RoadDublin [place] [id number] Monocytes/100 WBC (Bld) 9 % Normal [facility]; [facility] Work Phone: Comment on above: PATIENT WAS FASTINGP ERFORMED BY: [facility] Fylghc9402 [address] RoadDublin [place] [id number] Neutrophils (Bld) [#/Vol] 3.5 10*3/uL Normal 1.4-7.0 [facility]; [facility] Work Phone: Comment on above: PATIENT WAS FASTINGP ERFORMED BY: [facility] [id number] [address] RoadDublin [place] [id number] Neutrophils/100 WBC (Bld) 69 % Normal [facility]; [facility] Work Phone: Comment on above: PATIENT WAS FASTINGP ERFORMED BY: LabS[facility] Fgkcjo3570 [address] RoadDublin [place] [id number] Platelets (Bld) [#/Vol] 180 10*3/uL Normal 150-450 [facility]; [facility] Work Phone: Comment on above: PATIENT WAS FASTINGP ERFORMED BY: LabS[facility] Ejgoug3243 [address] Roadblin [place] [id number] RBC (Bld) [#/Vol] 4.55 10*6/uL Normal 4.14-5.80 Compr ehensive [facility]; [facility] Work Phone: Comment on above: PATIENT WAS FASTINGP ERFORMED BY: LabS[facility] Wbnxvr5668 [address] RoadDublin [place] [id number] WBC (Bld) [#/Vol] 5.1 10*3/uL Normal 3.4-10.8 Compre [facility]; [facility] Work Phone: Comment on above: PATIENT WAS FASTINGP ERFORMED BY: [facility] Isirut2903 [address] RoadDublin [place] [id number] LIPID PANEL ([id number])Ordered B y: Broomcorn Thresher on 03-24-2021 Cholesterol [Mass/Vol] 201 mg/dL Abnormal 100-199 [facility]; [facility] Work Phone: Comment on above: PATIENT WAS FASTINGP ERFORMED BY: DENTON LabCoaneta Sqdame[address] [facility] [place] [id number] Cholesterol in HDL [Mass/Vol] 51 mg/dL Normal [facility]; [facility] Work Phone: Comment on above: PATIENT WAS FASTINGP ERFORMED BY: DENTON [facility] Aijshv[address] [facility] [place] [id number] Triglyceride [Mass/Vol] 109 mg/dL Normal 0-149 [facility]; [facility] Work Phone: Comment on above: PATIENT WAS FASTINGP ERFORMED BY: DENTON LabCoaneta [id number] [facility] [place] [id number] LIPID PANEL ([id number]) 20 mg/dL Normal 5-40 [facility]; [facility] Work Phone: Comment on above: PATIENT WAS FASTINGP ERFORMED BY: DENTON LabCoaneta [id number] [address] [facility] [id number] LIPID PANEL ([id number]) 130 mg/dL Abnormal 0-99 [facility]; [facility] Work Phone: Comment on above: PATIENT WAS FASTINGP ERFORMED BY: DENTON LabBekah Jzxhca2056 [facility] [id number] LIPID PANEL (46304) 2.5 {ratio} Normal 0.0-3.6 [facility]; [facility] Work Phone: Comment on above: LDL/HDL Ratio Men Wo men 1/2 Avg.Risk 1.0 1.5 Avg.Risk 3.6 3.2 2X Avg.Risk 6.2 5.0 3X Avg.Risk 8.0 6.1 PATIENT WAS FASTINGP ERFORMED BY: DENTON [facility] Blzmiz[address] [facility] [place] [id number] METABOLIC PANEL, COMPREHENSI VE ([id number])Ordered By: Broomcorn Thresher on 03-24-2021 Albumin [Mass/Vol] 4.1 g/dL Normal 3.8-4.8 Compre [email or web address]] Internal [facility]; [facility] Work Phone: Comment on above: PATIENT WAS FASTINGP ERFORMED BY: CB [facility] Jrttik7953 [address] RoadDublin [place] [id number] Albumin/Globulin [Mass ratio] 1.9 {ratio} Normal 1.2-2.2 [facility]; [facility] Work Phone: Comment on above: PATIENT WAS FASTINGP ERFORMED BY: CB [facility] Gvgjks3259 [address] RoadDublin [place] [id number] ALP [Catalytic activity/Vol] 51 U/L Normal 44-121 [facility]; [facility] Work Phone: Comment on above: Please note refere nce interval change PATIENT WAS FASTINGP ERFORMED BY: CB [facility] Dccfzw1698 [address] RoadDublin [place] [id number] ALT [Catalytic activity/Vol] 33 U/L Normal 0-44 [facility]; [facility] Work Phone: Comment on above: PATIENT WAS FASTINGP ERFORMED BY: CB [facility] Brqwcz1312 [address] RoadDublin [place] [id number] AST [Catalytic activity/Vol] 21 U/L Normal 0-40 [facility]; [facility] Work Phone: Comment on above: PATIENT WAS FASTINGP ERFORMED BY: CB [facility] Bxqawp0821 [address] RoadDublin [place] [id number] Bilirubin [Mass/Vol] 1.1 mg/dL Normal 0.0-1.2 [facility]; [facility] Work Phone: Comment on above: PATIENT WAS FASTINGP ERFORMED BY: CB [facility] Ljeusw9766 [address] RoadDublin [place] [id number] Calcium [Mass/Vol] 8.8 mg/dL Normal 8.6-10.2 [facility]; [facility] Work Phone: Comment on above: PATIENT WAS FASTINGP ERFORMED BY: CB [facility] Oxxanh8964 [address] RoadDublin [place] [id number] Chloride [Moles/Vol] 104 mmol/L Normal 96-106 Comp rehensive Internal Medicine; [facility] Work Phone: Comment on above: PATIENT WAS FASTINGP ERFORMED BY: DENTON Chi6370 Meg [facility]aLivingston [facility] [id number] CO2 [Moles/Vol] 23 mmol/L Normal 20-29 [facility] Internal Medicine; [facility] Work Phone: Comment on above: PATIENT WAS FASTINGP ERFORMED BY: DENTON UlloaThe [facility]er Banks [facility] [id number] Creatinine [Mass/Vol] 0.87 mg/dL Normal 0.76-1.27 [facility]; [facility] Work Phone: Comment on above: PATIENT WAS FASTINGP ERFORMED BY: DENTON Chi6370 [facility] [id number] GFR/1.73 sq M.predicted among blacks CKD-EPI (S/P/Bld) [Vol rate/Area] 108 mL/min/1.73 Normal [facility]; [facility] Work Phone: Comment on above: In accordance with recommendations from the NKF-ASN Task force, [facility] is in the process of updating its eGFR calculation to the 2020 CKD-EPI creatinine equation that estimates kidney function without a race variable. PATIENT WAS FASTINGP ERFORMED BY: DENTON Chi6370 [facility] [id number] GFR/1.73 sq M.predicted among non-blacks CKD-EPI (S/P/Bld) [Vol rate/Area] 93 mL/min/1.73 Normal [facility]; [facility] Work Phone: Comment on above: PATIENT WAS FASTINGP ERFORMED BY: DENTON Chi6370 [address] [facility] [id number] Globulin (S) [Mass/Vol] 2.2 g/dL Normal 1.5-4.5 [facility]; [facility] Work Phone: Comment on above: PATIENT WAS FASTINGP ERFORMED BY: DENTON Chi6370 [facility] [id number] Glucose [Mass/Vol] 91 mg/dL Normal 65-99 [facility]; [facility] Work Phone: Comment on above: PATIENT WAS FASTINGP ERFORMED BY: DENTON Yahir Chi[address] [facility] [id number] Potassium [Moles/Vol] 4.8 mmol/L Normal 3.5-5.2 [facility]; [facility] Work Phone: Comment on above: PATIENT WAS FASTINGP ERFORMED BY: DENTON LivFranklin Yemcpj[address] [facility] [id number] Protein [Mass/Vol] 6.3 g/dL Normal 6.0-8.5 [facility]; [facility] Work Phone: Comment on above: PATIENT WAS FASTINGP ERFORMED BY: DENTON Ariaslin6[address] [facility] [id number] Sodium [Moles/Vol] 141 mmol/L Normal 134-144 [facility]; [facility] Work Phone: Comment on above: PATIENT WAS FASTINGP ERFORMED BY: DENTON LabFranklinaneta AriasDczqcn82[address] [facility] [id number] Urea nitrogen [Mass/Vol] 15 mg/dL Normal 8-27 [facility]; [facility] Work Phone: Comment on above: PATIENT WAS FASTINGP ERFORMED BY: DENTON LabFranklin Bowuut5710 [facility] [id number] Urea nitrogen/Creatinine [Mass ratio] 17 mg/mg Normal 10-24 [facility]; [facility] Work Phone: Comment on above: PATIENT WAS FASTINGP ERFORMED BY: DENTON LabFranklin Nhutys6896 [facility] [id number] MICROALBUMINOrdered By: Syst em Belt Dresser on 03-24-2021 Albumin DL <= 20 mg/L (U) [Mass/Vol] 23.5 ug/mL Normal Comprehensiv e [facility]; [facility] Work Phone: Comment on above: PATIENT WAS FASTINGP ERFORMED BY: [employer] Tjgdkw57[address] Motorpaneerin [place] [id number] Albumin/Creatinine (U) [Mass ratio] 11 {mg/g_creat} Normal 0-29 [facility]; [facility] Work Phone: Comment on above: Normal: 0 - 29 Moder ately increased: 30 - 300 Severely increased: >300 PATIENT WAS FASTINGP ERFORMED BY: [employer] [facility]CoSpecialty [place] Mkwosn[address] ConfidexUnc Healthin [place] [id number] Creatinine (U) [Mass/Vol] 221.2 mg/dL Normal [facility]; [facility] Work Phone: Comment on above: PATIENT WAS FASTINGP ERFORMED BY: [employer] Rqvxlk5[address] MotorpaneerThe Outer Banks Hospital [id number] PSA (PROSTATE SPECIFIC ANTIG EN) (V76.44)Ordered By: Broomcorn Thresher on 03-24-2021 Prostate specific Ag [Mass/Vol] 0.9 ng/mL Normal 0.0-4.0 [facility]; [facility] Work Phone: Comment on above: [place] ECLIA methodol ogy. .According to the [place] [employer], Serum PSA shoulddecrease and remain at undetectable levels after radicalprostatectomy. The AUA defines biochemical recurrence as an initialPSA value 0.2 ng/mL or greater followed by a subsequent confirmatoryPSA value 0.2 ng/mL or greater.Values obtained with different assay methods or kits cannot be usedinterchangeably. Results cannot be interpreted as absolute evidenceof the presence or absence of malignant disease. PATIENT WAS FASTINGP ERFORMED BY: [employer] Slpxwz2643 [address] Motorpaneerin [place] [id number] TSH ([id number])Ordered By: Qumuloe [employer]so[employer] Belt Dresser on 03-24-2021 TSH Qn 1.710 {uIU/mL} Normal 0.450-4.50 0 [facility]; [facility] Work Phone: Comment on above: PATIENT WAS FASTINGP ERFORMED BY: [employer] Oehqrj1694 [address] Confidexbl[place] [id number] URIC ACID BLOOD ([id number])Order ed By: Broomcorn Thresher on 03-24-2021 Urate [Mass/Vol] 7.1 mg/dL Normal 3.8-8.4 Comprehe nsive Internal Medicine; [facility] Work Phone: Comment on above: Therapeutic target f or gout patients: <6.0 PATIENT WAS FASTINGP ERFORMED BY: DENTON Chi6370 [address] RoadDublin [place] [id number] URINALYSIS, W/ MICRO ([id number]) Ordered By: Broomcorn Thresher on 03-24-2021 Appearance (U) Clear Normal Comprehens arnie Internal [facility]; [facility] Work Phone: Comment on above: PATIENT WAS FASTINGP ERFORMED BY: DENTON Chi6370 [address] RoadDublin [place] [id number] Bilirubin Ql (U) Negative Normal Comprehe nsive Internal Medicine; [facility] Work Phone: Comment on above: PATIENT WAS FASTINGP ERFORMED BY: DENTON Chi6370 [address] RoadDublin [place] [id number] Color (U) Yellow Normal [facility]; [facility] Work Phone: Comment on above: PATIENT WAS FASTINGP ERFORMED BY: DENTON Chi6370 [address] RoadDublin [place] [id number] Glucose Ql (U) Negative Normal Comprehens arnie [facility]; [facility] Work Phone: Comment on above: PATIENT WAS FASTINGP ERFORMED BY: DENTON Ariaslin6370 [address] RoadDublin [place] [id number] Hemoglobin Ql (U) Negative Normal Compreh ensive Internal Medicine; [facility] Work Phone: Comment on above: PATIENT WAS FASTINGP ERFORMED BY: DENTON Ariaslin6370 [address] RoadDublin [place] [id number] Ketones Ql (U) Trace Abnormal Comprehens arnie [facility]; [facility] Work Phone: Comment on above: PATIENT WAS FASTINGP ERFORMED BY: DENTON Ariaslin6370 [address] RoadDublin [place] [id number] Leukocyte esterase Test strip Ql (U) Negative Normal [facility]; [facility] Work Phone: Comment on above: PATIENT WAS FASTINGP ERFORMED BY: DENTON LabCoaneta Yxzpfo0931 [address] RoadDublin [place] [id number] Microscopic observation LM Nom (Urine sed) MICRON Normal [facility]; [facility] Work Phone: Comment on above: Microscopic follows if indicated. PATIENT WAS FASTINGP ERFORMED BY: DENTON [facility] Eohsvf5627 [address] RoadDublin [place] [id number] Microscopic observation LM Nom (Urine sed) See below: Normal [facility]; [facility] Work Phone: Comment on above: Microscopic was mckenna cated and was performed. PATIENT WAS FASTINGP ERFORMED BY: DENTON [facility] Ktpnpt0308 [address] RoadDublin [place] [id number] Nitrite Ql (U) Negative Normal Comprehens arnie [facility]; [facility] Work Phone: Comment on above: PATIENT WAS FASTINGP ERFORMED BY: DENTON [facility] Npxdtn6226 [address] RoadDublin [place] [id number] pH (U) 5.5 [pH] Normal 5.0-7.5 [facility]; [facility] Work Phone: Comment on above: PATIENT WAS FASTINGP ERFORMED BY: DENTON [facility] Jecczl8555 [address] RoadDublin [place] [id number] Protein Ql (U) Trace Normal Comprehens arnie [facility]; [facility] Work Phone: Comment on above: PATIENT WAS FASTINGP ERFORMED BY: DENTON [facility] Xddbwd0679 [address] RoadDublin [place] [id number] Specific gravity (U) [Rel density] 1.027 1 Normal 1.005-1.03 0 [facility]; [facility] Work Phone: Comment on above: PATIENT WAS FASTINGP ERFORMED BY: [facility] Kvhaps4654 [address] RoadDublin [place] [id number] Urobilinogen (U) [Mass/Vol] 0.2 mg/dL Normal 0.2-1.0 [facility]; [facility] Work Phone: Comment on above: PATIENT WAS FASTINGP ERFORMED BY: DENTON [facility] Ookcno4021 [facility] [id number] 2019 Novel Coronavirus (COVI D-19), NICOLE ([id number])Ordered By: Broomcorn Thresher on 06-01-20202018 Novel Coronavirus (COVID-19), NICOLE ([id number]) Not Detected Normal [facility]; [facility] Work Phone: Comment on above: This nucleic acid am plification test was developed and its performancecharacteristics determined by [employer]. Nucleic acidamplification tests include RT-PCR and TMA. This test has not beenFDA cleared or approved. This test has been authorized by FDA underan Emergency Use Authorization (EUA). This test is only authorizedfor the duration of time the declaration that circumstances existjustifying the authorization of the emergency use of in vitrodiagnostic tests for detection of SARS-CoV-2 virus and/or diagnosisof COVID-19 infection under section 564(b)(1) of the Act, 21 U.S.C.360bbb-3(b) (1), unless the authorization is terminated or revokedsooner.When diagnostic testing is negative, the possibility of a falsenegative result should be considered in the context of a patient'srecent exposures and the presence of clinical signs and symptomsconsistent with COVID-19. An individual without symptoms of COVID-19and who is not shedding SARS-CoV-2 virus would expect to have anegative (not detected) result in this assay. PATIENT NOT FASTINGP ERFORMED BY: DENTON [facility] Kpijcf4223 [facility] [id number] 2019 Novel Coronavirus (COVID-19), NICOLE ([id number]) Not detected Normal [facility]; [facility] Work Phone: Comment on above: This nucleic acid am plification test was developed and its performancecharacteristics determined by [employer]. Nucleic acidamplification tests include RT-PCR and TMA. This test has not beenFDA cleared or approved. This test has been authorized by FDA underan Emergency Use Authorization (EUA). This test is only authorizedfor the duration of time the declaration that circumstances existjustifying the authorization of the emergency use of in vitrodiagnostic tests for detection of SARS-CoV-2 virus and/or diagnosisof COVID-19 infection under section 564(b)(1) of the Act, 21 U.S.C.360bbb-3(b) (1), unless the authorization is terminated or revokedsooner.When diagnostic testing is negative, the possibility of a falsenegative result should be considered in the context of a patient'srecent exposures and the presence of clinical signs and symptomsconsistent with COVID-19. An individual without symptoms of COVID-19and who is not shedding SARS-CoV-2 virus would expect to have anegative (not detected) result in this assay. PATIENT NOT FASTINGP ERFORMED BY: DENTON [facility]6370 [facility] [id number] 2018 Novel Coronavirus (COVI D-19), NICOLE ([id number])Ordered By: Broomcorn Thresher on 05-25-20202018 Novel Coronavirus (COVID-19), NICOLE ([id number]) Not Detected Normal [facility]; [facility] Work Phone: Comment on above: This nucleic acid am plification test was developed and its performancecharacteristics determined by [employer]. Nucleic acidamplification tests include RT-PCR and TMA. This test has not beenFDA cleared or approved. This test has been authorized by FDA underan Emergency Use Authorization (EUA). This test is only authorizedfor the duration of time the declaration that circumstances existjustifying the authorization of the emergency use of in vitrodiagnostic tests for detection of SARS-CoV-2 virus and/or diagnosisof COVID-19 infection under section 564(b)(1) of the Act, 21 U.S.C.360bbb-3(b) (1), unless the authorization is terminated or revokedsooner.When diagnostic testing is negative, the possibility of a falsenegative result should be considered in the context of a patient'srecent exposures and the presence of clinical signs and symptomsconsistent with COVID-19. An individual without symptoms of COVID-19and who is not shedding SARS-CoV-2 virus would expect to have anegative (not detected) result in this assay. PATIENT NOT FASTINGP ERFORMED BY: [employer]8211 [address]BestIndian[place] [id number] 2018 Novel Coronavirus (COVID-19), NICOLE ([id number]) Not detected Normal [facility]; [facility] Work Phone: Comment on above: This nucleic acid am plification test was developed and its performancecharacteristics determined by [employer]. Nucleic acidamplification tests include RT-PCR and TMA. This test has not beenFDA cleared or approved. This test has been authorized by FDA underan Emergency Use Authorization (EUA). This test is only authorizedfor the duration of time the declaration that circumstances existjustifying the authorization of the emergency use of in vitrodiagnostic tests for detection of SARS-CoV-2 virus and/or diagnosisof COVID-19 infection under section 564(b)(1) of the Act, 21 U.S.C.360bbb-3(b) (1), unless the authorization is terminated or revokedsooner.When diagnostic testing is negative, the possibility of a falsenegative result should be considered in the context of a patient'srecent exposures and the presence of clinical signs and symptomsconsistent with COVID-19. An individual without symptoms of COVID-19and who is not shedding SARS-CoV-2 virus would expect to have anegative (not detected) result in this assay. PATIENT NOT FASTINGP ERFORMED BY: [employer] Vslxjpacqg7910 [address]BestIndian[place] [id number] CBC, Platelets & Auto Diff ( [id number])Ordered By: Broomcorn Thresher on 04-23-2020 Basophils (Bld) [#/Vol] 0.0 {x10E3/uL} Normal 0.0-0.2 [facility]; [facility] Work Phone: Comment on above: 04-23-20; PATIENT WA S FASTINGPERFORMED BY: [employer] Mktwex9410 [facility] [id number] Basophils (Bld) [#/Vol] 0.0 10*3/uL Normal 0.0-0.2 [facility]; [facility] Work Phone: Comment on above: 04-23-20; PATIENT YAAKOV S FASTINGPERFORMED BY: CB [facility] Prjmvg1103 [address] RoadDublin [place] [id number] Basophils/100 WBC (Bld) 0 % Normal [facility]; [facility] Work Phone: Comment on above: 04-23-20; PATIENT YAAKOV S FASTINGPERFORMED BY: CB [facility] Aqegbs7434 [address] RoadDublin [place] [id number] Eosinophils (Bld) [#/Vol] 0.2 {x10E3/uL} Normal 0.0-0.4 [facility]; [facility] Work Phone: Comment on above: 04-23-20; PATIENT YAAKOV S FASTINGPERFORMED BY: CB [facility] Cjeszo1233 [address] RoadDublin [place] [id number] Eosinophils (Bld) [#/Vol] 0.2 10*3/uL Normal 0.0-0.4 [facility]; [facility] Work Phone: Comment on above: 04-23-20; PATIENT YAAKOV S FASTINGPERFORMED BY: CB [facility] Qozheu1693 [address] RoadDublin [place] [id number] Eosinophils/100 WBC (Bld) 5 % Normal [facility]; [facility] Work Phone: Comment on above: 04-23-20; PATIENT YAAKOV S FASTINGPERFORMED BY: CB [facility] Ewamvb9005 [address] RoadDublin [place] [id number] Erythrocyte distribution width (RBC) [Ratio] 12.6 % Normal 11.6-15.4 [facility]; [facility] Work Phone: Comment on above: 04-23-20; PATIENT YAAKOV S FASTINGPERFORMED BY: CB [facility] Jjnlxo9796 [address] RoadDublin [place] [id number] Hematocrit (Bld) [Volume fraction] 45.6 % Normal 37.5-51.0 [facility]; [facility] Work Phone: Comment on above: 04-23-20; PATIENT YAAKOV S FASTINGPERFORMED BY: CB [facility] Jncefb0158 [address] Roadblin [place] [id number] Hemoglobin (Bld) [Mass/Vol] 15.8 g/dL Normal 13.0-17.7 [facility]; [facility] Work Phone: Comment on above: 04-23-20; PATIENT YAAKOV S FASTINGPERFORMED BY: CB [facility] Gkrhof3226 [address] RoadDublin [place] [id number] Immature granulocytes (Bld) [#/Vol] 0.0 {x10E3/uL} Normal 0.0-0.1 [facility]; [facility] Work Phone: Comment on above: 04-23-20; PATIENT YAAKOV S FASTINGPERFORMED BY: [facility] Zxooxj2930 [address] RoadDublin [place] [id number] Immature granulocytes (Bld) [#/Vol] 0.0 10*3/uL Normal 0.0-0.1 [facility]; [facility] Work Phone: Comment on above: 04-23-20; PATIENT YAAKOV S FASTINGPERFORMED BY: CB [facility] Scktqa8472 [address] RoadDublin [place] [id number] Immature granulocytes/100 WBC (Bld) 0 % Normal [facility]; [facility] Work Phone: Comment on above: 04-23-20; PATIENT YAAKOV S FASTINGPERFORMED BY: CB [facility] Hhpaey2642 [address] Roadblin [place] [id number] Lymphocytes (Bld) [#/Vol] 1.1 {x10E3/uL} Normal 0.7-3.1 [facility]; [facility] Work Phone: Comment on above: 04-23-20; PATIENT YAAKOV S FASTINGPERFORMED BY: CB [facility] Gbkzdh7440 [address] RoadDublin [place] [id number] Lymphocytes (Bld) [#/Vol] 1.1 10*3/uL Normal 0.7-3.1 [facility]; [facility] Work Phone: Comment on above: 04-23-20; PATIENT YAAKOV S FASTINGPERFORMED BY: CB [facility] Kjsmrl9353 [address] RoadDublin [place] [id number] Lymphocytes/100 WBC (Bld) 21 % Normal [facility]; [facility] Work Phone: Comment on above: 04-23-20; PATIENT YAAKOV S FASTINGPERFORMED BY: CB [facility] Tkaskr4733 [address] RoadDublin [place] [id number] MCH (RBC) [Entitic mass] 32.6 pg Normal 26.6-33.0 [facility]; [facility] Work Phone: Comment on above: 04-23-20; PATIENT YAAKOV S FASTINGPERFORMED BY: CB [facility] Uynasi1288 [address] RoadDublin [place] [id number] MCHC (RBC) [Mass/Vol] 34.6 g/dL Normal 31.5-35.7 [facility]; [facility] Work Phone: Comment on above: 04-23-20; PATIENT YAAKOV S FASTINGPERFORMED BY: CB [facility] Mrpspv6871 [address] [facility] [place] [id number] MCV (RBC) [Entitic vol] 94 fL Normal 79-97 [facility]; [facility] Work Phone: Comment on above: 04-23-20; PATIENT YAAKOV S FASTINGPERFORMED BY: CB [facility] Vudvbg6[address] [facility] Centerin [place] [id number] Monocytes (Bld) [#/Vol] 0.5 {x10E3/uL} Normal 0.1-0.9 [facility]; [facility] Work Phone: Comment on above: 04-23-20; PATIENT YAAKOV S FASTINGPERFORMED BY: CB [facility] Fudxax3230 [address] RoadDublin [place] [id number] Monocytes (Bld) [#/Vol] 0.5 10*3/uL Normal 0.1-0.9 [facility]; [facility] Work Phone: Comment on above: 04-23-20; PATIENT YAAKOV S FASTINGPERFORMED BY: CB [facility] Kdxfmq9156 [address] RoadDublin [place] [id number] Monocytes/100 WBC (Bld) 9 % Normal [facility]; [facility] Work Phone: Comment on above: 04-23-20; PATIENT WA S FASTINGPERFORMED BY: CB [facility] Bdwyqd1743 [address] RoadDublin [place] [id number] Neutrophils (Bld) [#/Vol] 3.5 {x10E3/uL} Normal 1.4-7.0 [facility]; [facility] Work Phone: Comment on above: 04-23-20; PATIENT YAAKOV S FASTINGPERFORMED BY: CB [facility] Ebcbpw3034 [address] RoadDublin [place] [id number] Neutrophils (Bld) [#/Vol] 3.5 10*3/uL Normal 1.4-7.0 [facility]; [facility] Work Phone: Comment on above: 04-23-20; PATIENT WA S FASTINGPERFORMED BY: CB [facility] Qrpxrq0352 [address] RoadDublin [place] [id number] Neutrophils/100 WBC (Bld) 65 % Normal [facility]; [facility] Work Phone: Comment on above: 04-23-20; PATIENT YAAKOV S FASTINGPERFORMED BY: CB [facility] Ihzsch7055 [address] RoadDublin [place] [id number] Platelets (Bld) [#/Vol] 187 {x10E3/uL} Normal 150-450 [facility]; [facility] Work Phone: Comment on above: 04-23-20; PATIENT WA S FASTINGPERFORMED BY: CB [facility] Hbouvj2131 [address] RoadDublin [place] [id number] Platelets (Bld) [#/Vol] 187 10*3/uL Normal 150-450 [facility]; [facility] Work Phone: Comment on above: 04-23-20; PATIENT YAAKOV S FASTINGPERFORMED BY: CB [facility] Lkrqdz9407 [address] RoadDublin [place] [id number] RBC (Bld) [#/Vol] 4.84 {x10E6/uL} Normal 4.14-5.80 [facility] Internal Medicine; [facility] Work Phone: Comment on above: 04-23-20; PATIENT YAAKOV S FASTINGPERFORMED BY: CB [facility] Vqfjlj6302 [address] RoadDublin [place] [id number] RBC (Bld) [#/Vol] 4.84 10*6/uL Normal 4.14-5.80 [facility] Internal Medicine; [facility] Work Phone: Comment on above: 04-23-20; PATIENT YAAKOV S FASTINGPERFORMED BY: CB [facility] Xhdnjf6633 [address] RoadDublin [place] [id number] WBC (Bld) [#/Vol] 5.3 {x10E3/uL} Normal 3.4-10.8 [email or web address]] Internal Medicine; [facility] Work Phone: Comment on above: 04-23-20; PATIENT YAAKOV S FASTINGPERFORMED BY: CB [facility] Xxpfqu1646 [address] RoadDublin [place] [id number] WBC (Bld) [#/Vol] 5.3 10*3/uL Normal 3.4-10.8 [facility]; [facility] Work Phone: Comment on above: 04-23-20; PATIENT YAAKOV S FASTINGPERFORMED BY: CB [facility] Pnzbrc8772 [address] RoadDublin [place] [id number] Lipid Panel ([id number])Ordered B y: Broomcorn Thresher on 04-23-2020 Cholesterol [Mass/Vol] 197 mg/dL Normal 100-199 [facility]; [facility] Work Phone: Comment on above: 04-23-20; PATIENT YAAKOV S FASTINGPERFORMED BY: CB [facility] Radvjp6784 [address] RoadDublin [place] [id number] Cholesterol in HDL [Mass/Vol] 56 mg/dL Normal [facility]; [facility] Work Phone: Comment on above: 04-23-20; PATIENT YAAKOV S FASTINGPERFORMED BY: CB [facility] Oqtdir8245 [address] RoadDublin [place] [id number] Cholesterol in LDL/Cholesterol in HDL [Mass ratio] 2.1 {ratio} Normal 0.0-3.6 [facility]; [facility] Work Phone: Comment on above: LDL/HDL Ratio Men Wo men 1/2 Avg.Risk 1.0 1.5 Avg.Risk 3.6 3.2 2X Avg.Risk 6.2 5.0 3X Avg.Risk 8.0 6.1 04-23-20; PATIENT YAAKOV S FASTINGPERFORMED BY: CB [facility] [id number]Dublin [place] [id number] Triglyceride [Mass/Vol] 139 mg/dL Normal 0-149 [facility]; [facility] Work Phone: Comment on above: 04-23-20; PATIENT YAAKOV S FASTINGPERFORMED BY: CB [facility] Tlipkw1051 [address]Dublin [place] [id number] Lipid Panel (74140) 25 mg/dL Normal 5-40 Compr ensive [facility]; [facility] Work Phone: Comment on above: 04-23-20; PATIENT YAAKOV S FASTINGPERFORMED BY: CB [facility] Sbsuaz1283 [address]Dublin [place] [id number] Lipid Panel (52206) 116 mg/dL Abnormal 0-99 [facility] Work Phone: Comment on above: 04-23-20; PATIENT YAAKOV S FASTINGPERFORMED BY: CB [facility] Sbabxo87[address]Dublin [place] [id number] Lipid Panel (12722) 2.1 {ratio} Normal 0.0-3.6 [facility]; [facility] Work Phone: Comment on above: LDL/HDL Ratio Men Wo men 1/2 Avg.Risk 1.0 1.5 Avg.Risk 3.6 3.2 2X Avg.Risk 6.2 5.0 3X Avg.Risk 8.0 6.1 04-23-20; PATIENT WA S FASTINGPERFORMED BY: CB [facility] Jybvqr3735 [address]Dublin [place] [id number] MICROALBUMINOrdered By: Syst em Belt Dresser on 04-23-2020 Albumin DL <= 20 mg/L (U) [Mass/Vol] 29.3 ug/mL Normal Comprehensiv e Internal Medicine; [facility] Work Phone: Comment on above: 04-23-20; PATIENT YAAKOV S FASTINGPERFORMED BY: CB [facility] Clpgev8773 [address]Dublin [place] [id number] Albumin/Creatinine (U) [Mass ratio] 11 {mg/g_creat} Normal 0-29 [facility]; [facility] Work Phone: Comment on above: Normal: 0 - 29 Moder ately increased: 30 - 300 Severely increased: >300 04-23-20; PATIENT YAAKOV S FASTINGPERFORMED BY: CB [facility] Lloboo26[address]Dublin [place] [id number] Creatinine (U) [Mass/Vol] 270.8 mg/dL Normal [facility]; [facility] Work Phone: Comment on above: 04-23-20; PATIENT WA S FASTINGPERFORMED BY: CB [facility] Lorldw8[address]Dublin [place] [id number] Metabolic Panel, Comprehensi ve (41422)Ordered By: Broomcorn Thresher on 04-23-2020 Albumin [Mass/Vol] 4.1 g/dL Normal 3.8-4.9 [facility]; [facility] Work Phone: Comment on above: 04-23-2020; PATIENT WAS FASTINGPERFORMED BY: CB [facility] Ezfqgx3751 [address]Dublin [place] [id number] Albumin/Globulin [Mass ratio] 1.9 {ratio} Normal 1.2-2.2 [facility]; [facility] Work Phone: Comment on above: 04-23-2020; PATIENT WAS FASTINGPERFORMED BY: CB [facility] Sfnskl56[address]Dublin [place] [id number] ALP [Catalytic activity/Vol] 50 [iU]/L Normal 39-117 [facility]; [facility] Work Phone: Comment on above: 04-23-2020; PATIENT WAS FASTINGPERFORMED BY: CB [facility] Hjxmwf0333 [address]Dublin [place] [id number] ALP [Catalytic activity/Vol] 50 U/L Normal 39-117 [facility]; [facility] Work Phone: Comment on above: 04-23-2020; PATIENT WAS FASTINGPERFORMED BY: CB [facility] Moiglm0412 [address]Dublin [place] [id number] ALT [Catalytic activity/Vol] 28 [iU]/L Normal 0-44 [facility]; [facility] Work Phone: Comment on above: 04-23-2020; PATIENT WAS FASTINGPERFORMED BY: CB [facility] Oygbmc7647 [address]Dublin [place] [id number] ALT [Catalytic activity/Vol] 28 U/L Normal 0-44 [facility]; [facility] Work Phone: Comment on above: 04-23-2020; PATIENT WAS FASTINGPERFORMED BY: CB [facility] Obddio6598 [address]Dublin [place] [id number] AST [Catalytic activity/Vol] 16 [iU]/L Normal 0-40 [facility]; [facility] Work Phone: Comment on above: 04-23-2020; PATIENT WAS FASTINGPERFORMED BY: CB [facility] Rawpqa3337 [address]Dublin [place] [id number] AST [Catalytic activity/Vol] 16 U/L Normal 0-40 [facility]; [facility] Work Phone: Comment on above: 04-23-2020; PATIENT WAS FASTINGPERFORMED BY: CB [facility] Wypgwu8[address]Dublin [place] [id number] Bilirubin [Mass/Vol] 1.2 mg/dL Normal 0.0-1.2 Comp [facility]hens[facility]; [facility] Work Phone: Comment on above: 04-23-2020; PATIENT WAS FASTINGPERFORMED BY: CB [facility] Kxhclk2121 [address]Dublin [place] [id number] Calcium [Mass/Vol] 9.3 mg/dL Normal 8.6-10.2 [facility]; [facility] Work Phone: Comment on above: 04-23-2020; PATIENT WAS FASTINGPERFORMED BY: CB [facility] Qryqpy3640 [address]Dublin [place] [id number] Chloride [Moles/Vol] 104 mmol/L Normal 96-106 Comp [facility]ighens[facility]; [facility] Work Phone: Comment on above: 04-23-2020; PATIENT WAS FASTINGPERFORMED BY: CB [facility] Ceupum7[address] [place] [id number] CO2 [Moles/Vol] 26 mmol/L Normal 20-29 [facility]; [facility] Work Phone: Comment on above: 04-23-2020; PATIENT WAS FASTINGPERFORMED BY: CB [facility] Hqguvq6[address]Dublin [place] [id number] Creatinine [Mass/Vol] 0.91 mg/dL Normal 0.76-1.27 [facility]; [facility] Work Phone: Comment on above: 04-23-2020; PATIENT WAS FASTINGPERFORMED BY: CB [facility] Ewsgif4268 [address]Dublin [place] [id number] GFR/1.73 sq M predicted among blacks CKD-EPI (S/P/Bld) [Vol rate/Area] 106 mL/min/1.73 Normal [facility]; [facility] Work Phone: Comment on above: 04-23-2020; PATIENT WAS FASTINGPERFORMED BY: CB [facility] Tzzvsd0674 [address] [place] [id number] GFR/1.73 sq M predicted among non-blacks CKD-EPI (S/P/Bld) [Vol rate/Area] 91 mL/min/1.73 Normal [facility]; [facility] Work Phone: Comment on above: 04-23-2020; PATIENT WAS FASTINGPERFORMED BY: CB [facility] Jgsjbg3712 [address] [place] [id number] Globulin (S) [Mass/Vol] 2.2 g/dL Normal 1.5-4.5 [facility]; [facility] Work Phone: Comment on above: 04-23-2020; PATIENT WAS FASTINGPERFORMED BY: [facility] Rauprb9319 [address] [place] [id number] Glucose [Mass/Vol] 91 mg/dL Normal 65-99 [email or web address]; [facility] Work Phone: Comment on above: 04-23-2020; PATIENT WAS FASTINGPERFORMED BY: CB [facility] Fmrowq1359 [address] [place] [id number] Potassium [Moles/Vol] 4.4 mmol/L Normal 3.5-5.2 [facility]; [facility] Work Phone: Comment on above: 04-23-2020; PATIENT WAS FASTINGPERFORMED BY: [facility] Ugxrcz0963 [address]Dublin [place] [id number] Protein [Mass/Vol] 6.3 g/dL Normal 6.0-8.5 [facility]; [facility] Work Phone: Comment on above: 04-23-2020; PATIENT WAS FASTINGPERFORMED BY: [facility] Hrfxry6345 [address]Dublin [place] [id number] Sodium [Moles/Vol] 143 mmol/L Normal 134-144 [facility]; [facility] Work Phone: Comment on above: 04-23-2020; PATIENT WAS FASTINGPERFORMED BY: [facility] Ocnlct9508 [address] [place] [id number] Urea nitrogen [Mass/Vol] 16 mg/dL Normal 8-27 [facility]; [facility] Work Phone: Comment on above: 04-23-2020; PATIENT WAS FASTINGPERFORMED BY: [facility] Nzdadq0486 [address] [place] [id number] Urea nitrogen/Creatinine [Mass ratio] 18 mg/mg Normal 10-24 [facility]; [facility] Work Phone: Comment on above: 04-23-2020; PATIENT WAS FASTINGPERFORMED BY: [email or web address] [place] [id number] PSA (PROSTATE SPECIFIC ANTIG EN) (V76.44)Ordered By: Broomcorn Thresher on 04-23-2020 Prostate specific Ag [Mass/Vol] 0.8 ng/mL Normal 0.0-4.0 [facility]; [facility] Work Phone: Comment on above: Medstro ECLIA methodol ogy. .According to the [place] [employer], Serum PSA shoulddecrease and remain at undetectable levels after radicalprostatectomy. The AUA defines biochemical recurrence as an initialPSA value 0.2 ng/mL or greater followed by a subsequent confirmatoryPSA value 0.2 ng/mL or greater.Values obtained with different assay methods or kits cannot be usedinterchangeably. Results cannot be interpreted as absolute evidenceof the presence or absence of malignant disease. 04-23-20; PATIENT YAAKOV S FASTINGPERFORMED BY: [email or web address] [place] [id number] TSH ([id number])Ordered By: Syste m Belt Dresser on 04-23-2020 TSH Qn 1.130 {uIU/mL} Normal 0.450-4.50 0 [facility]; [facility] Work Phone: Comment on above: 04-23-20; PATIENT YAAKOV S FASTINGPERFORMED BY: [email or web address] [place] [id number] URIC ACID BLOOD ([id number])Order ed By: Broomcorn Thresher on 04-23-2020 Urate [Mass/Vol] 7.0 mg/dL Normal 3.8-8.4 Comprehe nsive Internal Medicine; [facility] Work Phone: Comment on above: Therapeutic target f or gout patients: <6.0 Please note reference interval change 04-23-20; PATIENT YAAKOV S FASTINGPERFORMED BY: [employer] [id number] [place] [id number] PROGRESSon 04-13-2019 PROGRESS HNO ID: [id number] Author: Downtime Note Service: ? Author Type: ? Type: Progress Notes Filed: 04/13/2019 2:49 AM Note Text: Epic Scheduled Downtime: 04/13/2019 1:00:00 AM to 04/13/2019 2:39:00 AM Normal [facility] Vital Signs Date Time Vital Sign Value Performing Clinician Facility 12-12-2022 11:48-0400 Body weight 120.2 kg SPECIAL EVENT ASSISTANT-C Connie Leon Work Phone: [facility] 12-12-2022 11:48-0400 Diastolic blood pressure 75 mm[Hg] SPECIAL EVENT ASSISTANT-C Connie Flores Work Phone: [facility] 12-12-2022 11:48-0400 Heart rate 57 /min SPECIAL EVENT ASSISTANT-C Connie Leon Work Phone: [facility] 12-12-2022 11:48-0400 Respiratory rate 18 /min SPECIAL EVENT ASSISTANT-C Connie Leon Work Phone: [facility] 12-12-2022 11:48-0400 Systolic blood pressure 129 mm[Hg] SPECIAL EVENT ASSISTANT-C Connie Leon Work Phone: [facility] 12-12-2022 08:43-0400 Body height 182.88 cm SPECIAL EVENT ASSISTANT-C Connie Leon Work Phone: [facility] 12-05-2022 11:10-0400 Body height 179.07 cm Kalie MumboenikitaAlliance Health [facility]; [facility] Work Phone: 12-05-2022 11:10-0400 Body mass index (BMI) [Ratio] 37.98 kg/m2 KaliemChron [facility]; [facility] Work Phone: 12-05-2022 11:10-0400 Body surface area Derived from formula 2.38 m2 Kalie CleaningAll[facility]; [facility] Work Phone: 12-05-2022 11:10-0400 Body temperature 97.1 [degF] Kalie Manveter[facility] health administrationAll[facility] Health [facility]; [facility] Work Phone: Comment on above: Method: Thermal Scan 12-05-2022 11:10-0400 Body weight 121.79 kg Kalie Flores [facility]; [facility] Work Phone: 12-05-2022 11:10-0400 Diastolic blood pressure 80 mm[Hg] Kalie Flores GRAD INTERN [facility]; [facility] Work Phone: Comment on above: Patient Position: Sitting; Cuff Location : Left Arm; Cuff Size: Standard 12-05-2022 11:10-0400 Heart rate 57 /min Kalie Flores [facility]; [facility] Work Phone: Comment on above: Pattern: Regular 12-05-2022 11:10-0400 Respiratory rate 16 /min Kalie Flores [facility]; [facility] Work Phone: Comment on above: Pattern: Unlabored 12-05-2022 11:10-0400 SaO2% (BldA) [Mass fraction] 97 % Kalie Flores [facility]; [facility] Work Phone: Comment on above: Room air 12-05-2022 11:10-0400 Systolic blood pressure 140 mm[Hg] Kalie Flores [facility]; [facility] Work Phone: Comment on above: Patient Position: Sitting; Cuff Location : Left Arm; Cuff Size: Standard 11-21-2022 14:59-0400 Body height 179.07 cm Connie Flores CNP Work Phone: [facility]; [facility] Work Phone: Comment on above: home automatic cuff: 200/107 11-21-2022 14:59-0400 Body mass index (BMI) [Ratio] 37.98 kg/m2 Connie Flores CNP Work Phone: [facility]; [facility] Work Phone: Comment on above: home automatic cuff: 200/107 11-21-2022 14:59-0400 Body surface area Derived from formula 2.38 m2 Connie Flores CNP Work Phone: [facility]; [facility] Work Phone: Comment on above: home automatic cuff: 200/107 11-21-2022 14:59-0400 Body temperature 97.5 [degF] Connie Flores CNP Work Phone: [facility]; [facility] Work Phone: Comment on above: Method: Tympanic home automatic cuff: 200/107 11-21-2022 14:59-0400 Body weight 121.79 kg Connie Flores CNP Work Phone: [facility]; [facility] Work Phone: Comment on above: home automatic cuff: 200/107 11-21-2022 14:59-0400 Diastolic blood pressure 90 mm[Hg] Connie Flores CNP Work Phone: [facility]; [facility] Work Phone: Comment on above: Patient Position: Sitting; Cuff Location : Left Arm; Cuff Size: Standard home automatic cuff: 200/107 11-21-2022 14:59-0400 Heart rate 58 /min Connie Flores CNP Work Phone: [facility]; [facility] Work Phone: Comment on above: Pattern: Regular home automatic cuff: 200/107 11-21-2022 14:59-0400 Respiratory rate 20 /min Connie Flores CNP Work Phone: [facility]; [facility] Work Phone: Comment on above: Pattern: Unlabored home automatic cuff: 200/107 11-21-2022 14:59-0400 SaO2% (BldA) [Mass fraction] 98 % Connie Flores CNP Work Phone: [facility]; [facility] Work Phone: Comment on above: Room air home automatic cuff: 200/107 11-21-2022 14:59-0400 Systolic blood pressure 192 mm[Hg] Connie Flores CNP Work Phone: [facility]; [facility] Work Phone: Comment on above: Patient Position: Sitting; Cuff Location : Left Arm; Cuff Size: Standard home automatic cuff: 200/107 04-25-2022 08:40-0500 Diastolic blood pressure 82 mm[Hg] Connie Flores TELEPHONIC NURSE Work Phone: [facility]; [facility] Work Phone: Comment on above: Patient Position: Sitting; Cuff Location : Left Arm; Cuff Size: Large 04-25-2022 08:40-0500 Systolic blood pressure 142 mm[Hg] Connie Flores TELEPHONIC NURSE Work Phone: [facility]; [facility] Work Phone: Comment on above: Patient Position: Sitting; Cuff Location : Left Arm; Cuff Size: Large 04-25-2022 08:26-0500 Body height 179.07 cm Anabel Lopez MA [facility]; [facility] Work Phone: 04-25-2022 08:26-0500 Body mass index (BMI) [Ratio] 37.8 kg/m2 Anabel Lopez MA [facility]; [facility] Work Phone: 04-25-2022 08:26-0500 Body surface area Derived from formula 2.37 m2 Anabel Lopez MA [facility]; [facility] Work Phone: 04-25-2022 08:26-0500 Body temperature 96 [degF] Anabel Lopez MA [facility]; [facility] Work Phone: 04-25-2022 08:26-0500 Body weight 121.22 kg Anabel Lopez MA [facility]; [facility] Work Phone: 04-25-2022 08:26-0500 Diastolic blood pressure 98 mm[Hg] Anabel Lopez MA [facility]; [facility] Work Phone: Comment on above: Patient Position: Sitting; Cuff Location : Left Arm; Cuff Size: Standard 04-25-2022 08:26-0500 Heart rate 67 /min Anabel Lopez MA [facility]; [facility] Work Phone: Comment on above: Pattern: Regular 04-25-2022 08:26-0500 Respiratory rate 16 /min Anabel Lopez MA [facility]; [facility] Work Phone: Comment on above: Pattern: Unlabored 04-25-2022 08:26-0500 SaO2% (BldA) [Mass fraction] 96 % Anabel Lopez MA [facility]; [facility] Work Phone: Comment on above: Room air 04-25-2022 08:26-0500 Systolic blood pressure 150 mm[Hg] Anabel Lopez MA [facility]; [facility] Work Phone: Comment on above: Patient Position: Sitting; Cuff Location : Left Arm; Cuff Size: Standard 05-03-2021 09:20-0500 Body height 179.07 cm Mary King MA [facility]; [facility] Work Phone: 05-03-2021 09:20-0500 Body mass index (BMI) [Ratio] 38.05 kg/m2 Mary King MA [facility]; [facility] Work Phone: 05-03-2021 09:20-0500 Body surface area Derived from formula 2.38 m2 Mary King MA [facility]; [facility] Work Phone: 05-03-2021 09:20-0500 Body temperature 96.8 [degF] Mary King MA [facility]; [facility] Work Phone: Comment on above: Method: Infrared 05-03-2021 09:20-0500 Body weight 122.02 kg Mary King MA [facility]; [facility] Work Phone: 05-03-2021 09:20-0500 Diastolic blood pressure 76 mm[Hg] Mary King MA [facility]; [facility] Work Phone: Comment on above: Patient Position: Sitting; Cuff Location : Left Arm; Cuff Size: Standard 05-03-2021 09:20-0500 Heart rate 69 /min Mary King MA [facility]; [facility] Work Phone: Comment on above: Pattern: Regular 05-03-2021 09:20-0500 Respiratory rate 16 /min Mary King MA [facility]; [facility] Work Phone: Comment on above: Pattern: Unlabored 05-03-2021 09:20-0500 SaO2% (BldA) [Mass fraction] 97 % Mary King MA [facility]; [facility] Work Phone: Comment on above: Room air 05-03-2021 09:20-0500 Systolic blood pressure 132 mm[Hg] Mary King MA [facility]; [facility] Work Phone: Comment on above: Patient Position: Sitting; Cuff Location : Left Arm; Cuff Size: Standard 04-09-2021 08:00-0500 Body height 179.07 cm Trini Weeks CNP Work Phone: [facility]; [facility] Work Phone: 04-09-2021 08:00-0500 Body mass index (BMI) [Ratio] 36.64 kg/m2 Trini Weeks CNP Work Phone: [facility]; [facility] Work Phone: 04-09-2021 08:00-0500 Body surface area Derived from formula 2.34 m2 Trini Weeks CNP Work Phone: [facility]; [facility] Work Phone: 04-09-2021 08:00-0500 Body weight 117.49 kg Trini Weesk CNP Work Phone: [facility]; [facility] Work Phone: 04-09-2021 08:00-0500 SaO2% (BldA) [Mass fraction] 96 % Trini Weeks TELEPHONIC NURSE Work Phone: [facility]; [facility] Work Phone: Comment on above: Room air 04-06-2021 13:47-0500 Body height 179.07 cm Paloma Moore LPN [facility]; [facility] Work Phone: Comment on above: patient did not report 04-06-2021 13:47-0500 Body mass index (BMI) [Ratio] 36.64 kg/m2 Paloma Slarb PROMOTIONS INTERN [facility]; [facility] Work Phone: Comment on above: patient did not report 04-06-2021 13:47-0500 Body surface area Derived from formula 2.34 m2 Paloma Slarb PROMOTIONS INTERN [facility]; [facility] Work Phone: Comment on above: patient did not report 04-06-2021 13:47-0500 Body weight 117.49 kg Paloma Slarb PROMOTIONS INTERN [facility]; [facility] Work Phone: Comment on above: patient did not report 08-03-2020 14:46-0400 Body height 179.07 cm Amadeo Cardona LPN [facility]; [facility] Work Phone: 08-03-2020 14:46-0400 Body mass index (BMI) [Ratio] 36.64 kg/m2 Amadeo Cardona LPN [facility]; [facility] Work Phone: 08-03-2020 14:46-0400 Body surface area Derived from formula 2.34 m2 Amadeo Cardona LPN [facility]; [facility] Work Phone: 08-03-2020 14:46-0400 Body weight 117.49 kg Amadeo Cardona LPN [facility]; [facility] Work Phone: 04-29-2020 15:35-0500 BMI (Body Mass Index) 36.64 kg/m2 Amadeo Cardona LPN [facility]; [facility] Work Phone: 04-29-2020 15:35-0500 Body Temperature 97.4 [degF] Amadeo Cardona LPN [facility]; [facility] Work Phone: Comment on above: Method: Infrared 04-29-2020 15:35-0500 Body weight 117.49 kg Amadeo Cardona LPN [facility]; [facility] Work Phone: 04-29-2020 15:35-0500 BP Diastolic 80 mm[Hg] Amadeo Cardona LPN [facility]; [facility] Work Phone: Comment on above: Patient Position: Sitting; Cuff Location : Left Arm; Cuff Size: Standard 04-29-2020 15:35-0500 BP Systolic 136 mm[Hg] Amadeo Cardona LPN [facility]; [facility] Work Phone: Comment on above: Patient Position: Sitting; Cuff Location : Left Arm; Cuff Size: Standard 04-29-2020 15:35-0500 BSA (Body Surface Area) 2.34 m2 Amadeo Cardona LPN [facility]; [facility] Work Phone: 04-29-2020 15:35-0500 Height 179.07 cm Amadeo Cardona LPN [facility]; [facility] Work Phone: 04-29-2020 15:35-0500 Pulse (Heart Rate) 74 /min Amadeo Cardona LPN Comprehensiv e Internal Medicine; [facility] Work Phone: Comment on above: Pattern: Regular 04-29-2020 15:35-0500 Pulse Oximetry 97 % Trini Weeks [facility]; [facility] Work Phone: Comment on above: Room air 04-29-2020 15:35-0500 Respiratory Rate 16 /min Amadeo Cardona LPN [facility]; [facility] Work Phone: Comment on above: Pattern: Unlabored 04-29-2020 15:35-0500 SaO2% (BldA) [Mass fraction] 97 % Amadeo Cardona LPN [facility]; [facility] Work Phone: Comment on above: Room air 04-22-2020 14:28-0500 BMI (Body Mass Index) 36.78 kg/m2 Amadeo Cardona LPN [facility]; [facility] Work Phone: 04-22-2020 14:28-0500 Body Temperature 97.9 [degF] Amadeo Cardona LPN [facility]; [facility] Work Phone: Comment on above: Method: Infrared 04-22-2020 14:28-0500 Body weight 117.95 kg Amadeo Cardona LPN [facility]; [facility] Work Phone: 04-22-2020 14:28-0500 BP Diastolic 92 mm[Hg] Amadeo Cardona LPN [facility]; [facility] Work Phone: Comment on above: Patient Position: Sitting; Cuff Location : Left Arm; Cuff Size: Standard 04-22-2020 14:28-0500 BP Systolic 148 mm[Hg] Amadeo Cardona LPN [facility] Work Phone: Comment on above: Patient Position: Sitting; Cuff Location : Left Arm; Cuff Size: Standard 04-22-2020 14:28-0500 BSA (Body Surface Area) 2.35 m2 Amadeo Cardona LPN [facility]; [facility] Work Phone: 04-22-2020 14:28-0500 Height 179.07 cm Amadeo Cardona LPN [facility]; [facility] Work Phone: 04-22-2020 14:28-0500 Pulse (Heart Rate) 66 /min Amadeo Cardona LPN [facility]; [facility] Work Phone: Comment on above: Pattern: Regular 04-22-2020 14:28-0500 Pulse Oximetry 98 % Trini Weeks [facility] Work Phone: Comment on above: Room air 04-22-2020 14:28-0500 Respiratory Rate 16 /min Amadeo Cardona LPN [facility]; [facility] Work Phone: Comment on above: Pattern: Unlabored 04-22-2020 14:28-0500 SaO2% (BldA) [Mass fraction] 98 % Amadeo Cardona LPN [facility]; [facility] Work Phone: Comment on above: Room air Encounters Encounter Date Encounter Type Care Provider Facility Start: 02-10-2025 End: 02-10-2025 ambulatory Connie Flores Facility:[facility] Start: 01-01-2025 Non-patient / Non-visit Dr. Hung [facility] Start: 01-01-2025 End: 01-01-2025 ambulatory Connie Flores SPECIAL EVENT ASSISTANT-C Work Phone: -[facility] Start: 01-01-2025 End: 01-01-[address] Suzan Reddy DO -[facility] Work Phone: Start: 01-01-2025 End: 01-01-2025 ambulatory Connie Flores Facility:[facility] Start: 12-24-2024 End: 12-24-2024 ambulatory Connie Flores SPECIAL EVENT ASSISTANT-C Work Phone: -Card[facility] Services Start: 12-24-2024 End: 12-24-[address] Suzan Reddy DO -[facility] Services Work Phone: Start: 12-24-2024 End: 12-24-2024 ambulatory Connie Flores Facility:[facility] Start: 08-05-2024 Non-patient / Non-visit Dr. Aman rico MD -[facility] Start: 08-05-2024 End: 08-05-2024 ambulatory Connie Flores SPECIAL EVENT ASSISTANT-C Work Phone: [facility] Work Phone: Start: 08-05-2024 End: 08-05-2024 Patient encounter procedure Connie Flores SPECIAL EVENT ASSISTANT-C -Cardiovascular Services Work Phone: Start: 08-05-2024 End: 08-05-2024 ambulatory Connie Flores Facility:[facility] Start: 12-13-2022 End: 12-13-2022 Patient encounter procedure Connie Flores TELEPHONIC NURSE Work Phone: [facility] Start: 12-12-2022 End: 12-12-2022 Patient encounter procedure SPECIAL EVENT ASSISTANT-C Connie Flores Work Phone: [facility] Work Phone: Start: 12-09-2022 End: 12-09-2022 ambulatory SPECIAL EVENT ASSISTANT-C Connie Flores Work Phone: [facility] Work Phone: Start: 12-09-2022 End: 12-09-2022 Patient encounter procedure SPECIAL EVENT ASSISTANT-C Connie Flores Work Phone: [facility] Work Phone: Start: 12-09-2022 End: 12-10-2022 ambulatory CONNIE FLORES APRN-TELEPHONIC NURSE Facility:[facility] Start: 12-05-2022 End: 12-05-2022 Office outpatient visit 15 minutes Connie Flores CNP Work Phone: [facility] Start: 12-05-2022 Review Connie Flores CNP Work Phone: [facility] Start: 11-29-2022 End: 11-29-2022 Annotation/Addendum Connie Flores CNP Work Phone: [facility] Start: 11-28-2022 End: 11-28-2022 Annotation/Addendum Connie Flores CNP Work Phone: [facility] Start: 11-25-2022 End: 11-26-2022 ambulatory CONNIE FLORES APRN-TELEPHONIC NURSE Facility:[facility] Start: 11-21-2022 End: 11-24-2022 Office outpatient visit 15 minutes Connie Flores CNP Work Phone: [facility] Start: 05-05-2022 ambulatory Connie Flores CNP Comp [facility] Start: 04-25-2022 End: 04-25-2022 Office outpatient visit 15 minutes Connie Flores CNP Work Phone: [facility] Start: 04-25-2022 End: 04-25-2022 Physical examination Connie Flores CNP Work Phone: [facility] Start: 04-15-2022 End: 04-16-2022 ambulatory CONNIE FLORES APRN-TELEPHONIC NURSE Facility:[facility] Start: 04-08-2022 End: 04-08-2022 Lab Order Trini Weeks Work Phone: [facility] Start: 05-03-2021 End: 05-03-2021 Office outpatient visit 25 minutes Trini Hamiltonvioleta TELEPHONIC NURSE Work Phone: [facility] Start: 05-03-2021 End: 05-03-2021 Physical examination Trini Weeks CNP Work Phone: [facility]; [facility] Work Phone: Start: 04-09-2021 End: 04-09-2021 Office outpatient visit 15 minutes Trini Weeks TELEPHONIC NURSE Work Phone: [facility] Start: 04-06-2021 End: 04-06-2021 Office outpatient visit 15 minutes Trini Weeks TELEPHONIC NURSE Work Phone: [facility] Start: 03-19-2021 End: 03-19-2021 Annotation/Addendum Trini Weeks TELEPHONIC NURSE Work Phone: [facility] Start: 08-03-2020 End: 08-03-2020 Erroneous Entry Trini Weeks TELEPHONIC NURSE Work Phone: [facility] Start: 06-01-2020 End: 06-01-2020 Office outpatient visit 10 minutes Trini Weeks [facility] Start: 05-25-2020 End: 05-25-2020 Office outpatient visit 5 minutes Trini Weeks [facility] Start: 04-29-2020 End: 04-29-2020 Office outpatient visit 15 minutes Trini Weeks [facility] Start: 04-29-2020 Review Trini Weeks [facility] Start: 04-22-2020 End: 04-22-2020 Office outpatient new 45 minutes Trini Weeks [facility] Physical examination Anabel Lopez MA [facility]; [facility] Work Phone: Physical examination Connie Swapna louie TELEPHONIC NURSE Work Phone: [facility]; [facility] Work Phone: Physical examination Kalie Flores CMA [facility]; [facility] Work Phone: Procedures Date Procedure Procedure Detail Performing Clinician Start: 12-12-2022 End: 12-21-2022 12 Lead EKG performed by [facility] Procedure Note: See Note; NOTES: [facility] [address] [place] [address] 12 Lead EKG performed by [facility] 12/12/22 1135 MR#: [id number] Acct: [id number] Name: PETE BARR Rep #: [id number] : 1960 62 From: Roberta Almanzar MD Attending Dr: Dr. Roberta Almanzar MD Status: DEP AMB Ordering Dr: Roberta Almanzar MD Date: 12/12/22 Location: [facility] Sex: M C Admitted: BMS/12 Lead E[facility] performed by [facility] Sinus Bradycardia WITHIN NORMAL LIMITS 12/13/22 1130 <Electronically signed by Roberta Almanzar MD> Date Roberta Almanzar MD CC: SPECIAL EVENT ASSISTANT-C Connie Flores Date Dictated: 12/12/221134 Date Transcribed: 12/12/221134 Flaker Tender: ERVIN Signed Connie Flores TELEPHONIC NURSE Work Phone: Start: 12-12-2022 End: 12-12-2022 Cardiology Visit Report Procedure Note: See Note; NOTES: [facility] [place] [address] OFFICE VISIT Date of Service: 12/12/22 MR#: [id number] Acct: [id number] Name: PETE BARR Rep #: [id number] : 1960 Provider: Dr. Roberta Almanzar MD Age/Sex: 62/M Location: [facility] Status: Signed [facility] HPI History of Present Illness Details: This patient has past medical history significant for hypertension. Recently his blood pressure was noted to be elevated. Subsequently his primary care physician made changes to his medication increasing his bisoprolol/hydrochlorothia zide to twice daily. Patient denies any history of severe headaches. No visual changes. Denies any chest pains either at rest or with exertion. Shortness of breath with strenuous exertion only. No orthopnea. No PND. No ankle edema. Denies any palpitations. Patient has been keeping a log of his blood pressure readings at home. His systolic usually runs in the 150s to 160s at home. Patient denies any history of sleep apnea however according to his , the patient snores loudly at night and she could hear him in the other room. Intake Vital Signs 04/07/21 14:36 12/12/22 08:43 12/12/22 11:48 Height 6 ft 6 ft Weight: 265 lb BP 129/75 H Blood Pressure Location Lt brachial Position Sitting Respiration 18 Pulse 57 L Pulse Source Monitor Intake Visit Reasons: HIGH BP (SELF) Machine Tool Operator Required: No Accompanied by: Is patient in pain?: No Allergies Penicillins Allergy (Verified 12/12/22 11:43) unknown Medications lisinopril 40 mg tablet 40 mg PO DAILY 04/07/21 [History Confirmed 12/06/22] amlodipine 10 mg tablet 10 mg PO DAILY 12/12/22 [History Confirmed 12/12/22] bisoprolol 10 mg-hydrochlorothiazide 6.25 mg tablet (Ziac) 1 tab PO BID 12/12/22 [History Confirmed 12/12/22] Ejection fraction %: 60 to 64 PFSH Medical History BMI over 35 COVID-19 Edema, leg Essential hypertension Gout Mixed hyperlipidemia Shoulder pain, bilateral Sleep apnea Surgical History Hx of hemorrhoidectomy Rectal fistula Family History Grandfather Leukemia Father , 87 CVA (cerebral vascular accident) Heart valve problem CAD (coronary artery disease) Mother Cancer pancreatic CAD (coronary artery disease) Brother CAD (coronary artery disease) stents at 60 Sister Heart disease Social History Smoking Status: Current some day smoker tobacco type: cigars alcohol intake: current alcohol intake frequency: a few times a month substance use type: does not use caffeine: Yes Type: coffee Number of servings: 1 ROS Const Const: Negative for fatigue, weakness, headache(s), frequent falls, difficulty sleeping or excessive sweating Eyes Eyes: Negative for loss of peripheral vision, transient loss of vision, blurry vision, double vision or tunnel vision ENT ENT: Negative for headache(s), dizziness, Nosebleed/epistaxis or balance problems Cardio Chest Pain: No Palpitations: No Edema: None Muscle aches with walking: None Resp Respiratory: Positive for SOB with activity; Negative for SOB at rest, SOB orthopnea SOB lying down, Cough or paroxysmal nocturnal dyspnea GI GI: Negative nausea, vomiting or heartburn : Negative for hematuria Musc Musc: Negative for muscle aches/ myalgia, muscle weakness, joint pain or balance problems Skin Skin: Negative non-healing lesions, rash or unusual bruising Neuro Neuro: Negative for dizziness, lightheadedness, near syncope, syncope, orthostatic symptoms, frequent falls, headache(s), weakness, confusion, memory loss, blurry vision, double vision, vertigo or lack of coordination Ryan Hematologic/Lymphatic: Negative for easy bleeding or easy bruising Endo Endo: Negative for fatigue, excessive sweating, flushing or increased thirst/drinking Psych Psych: Negative for anxiety or depression Allergy Allergy/Immunology: Negative for hives and Negative for rash Cardiology Exam Const Appearance: comfortable and no acute distress Nutritional Appearance: well nourished and obese Neck Neck: no JVD Carotids: Negative bruit Chest Auscultation: Bilateral: Clear to Auscultation Cardio Rate: regular rate Rhythm: regular rhythm Heart sounds: S1 normal and S2 normal GI GI: obese Neuro General: patient alert, patient awake and patient oriented x3 Extremities Lower Extremity Edema: None: Bilateral Supplemental Info Supplemental Information ECHOCARDIOGRAM 03/19/18: SUMMARY 1. Left ventricle: The cavity size is normal. Wall thickness is moderately increased. Systolic function is normal. The estimated ejection fraction is 60-65%. Wall motion is normal; there are no regional wall motion abnormalities. 2. Right ventricle: The RV systolic pressure by Doppler is 16 mmHg. 3. Right atrium: The atrium is mildly dilated. The estimated right atrial pressure is 10 mmHg. STRESS TEST 02/27/18: IMPRESSION 1. EKG portion of stress test is positive for ischemia. The baseline ST segment abnormality reduces the specificity of the stress test. 2. Baseline EKG shows sinus rhythm with left ventricular hypertrophy with secondary repolarization changes. 3. Good functional capacity for age and gender. 4. Good chronotropic response, good blood pressure response, and good heart rate recovery. 5. Baseline hypertension. 6. Nuclear perfusion images to be reported separately. Report: SPECT perfusion images show homogeneous tracer uptake both in stress and rest images. Tid ratio is within normal limits at 1.02. Gated SPECT images show normal wall motion and wall thickening. End-diastolic volume is 122mL. Ejection fraction is 53%. IMPRESSION 1. No evidence of ischemia or infarction. 2. Normal systolic function with ejection fraction of 53%. STRESS TEST 02/19/18: IMPRESSION 1. Nondiagnostic exercise stress test due to baseline repolarization changes likely due to left ventricular hypertrophy. Voltage criteria for LVH likely not met due to patient's obesity. 2. No chest pain or discomfort during the protocol. 3. Baseline hypertension with a normal blood pressure response to exercise. 4. Normal heart rate recovery. COMMENTS: Would strongly consider an exercise stress imaging study. Labs: No Data to Display Diagnostics: Electrocardiogram Pulmonary: No Data to Display Past Visits: Cardiology Visit 12/12/22 Assessment and Plan Assessment and Plan (1) Essential hypertension: Status: Chronic Plan: Blood pressure today controlled. Patient counseled to bring in his blood pressure monitor to compare against our monitor here. Continue present medications. Patient has had blood work-up done last week by his primary care physician's office. We will try to get results of those. Counseled to lose weight. Also counseled to get evaluated for sleep apnea. Follow as per primary care physician. (2) Obesity: Status: Chronic Plan: Counseled to lose weight. Orders: Orders 12 Lead EKG performed by BMS Today E78.2 - Mixed hyperlipidemia, I10 - Essential (primary) hypertension Plan Details Follow Up: 3 Months Coding Level of Care Code Off vis,new,level 3 Diagnoses Essential hypertension I10 Obesity E66.9 Coding Level of Care Code Off vis,new,level 3 Diagnoses Essential hypertension I10 Obesity E66.9 12/12/22 1336 <Electronically signed by Roberta Almanzar MD> Date Roberta Almanzar MD Cosigner Signature: Date (if applicable) CC: MIRI Flores [facility] Work Phone: Start: 12-09-2022 End: 12-10-2022 Kidney and Bladder Procedure Note: See Note; NOTES: [facility] Imaging Services [address] [place] [address] Kidney and Bladder MR#: [id number] Acct: [id number] Name: PETE BARR Rep #: [id number] : 1960 M 62 From: Marilou Metzger MD PCP: MIRI Roy Status: REG CLI Study: Kidney and Bladder Date of Exam: 12/09/22 Exam# [id number] Ordering Dr: Connie Flores EXAM: US RETROPERITONEAL LIMITED, RENAL CLINICAL INDICATION: HTN TECHNIQUE: Limited grayscale and color Doppler sonographic evaluation of the retroperitoneum was performed. COMPARISON: No relevant prior studies available. FINDINGS: RIGHT KIDNEY: Unremarkable. 13.6 cm x 5.1 cm x 4.8 cm. No hydronephrosis. No shadowing calculus. No focal lesion. No perinephric collection is demonstrated. LEFT KIDNEY: Unremarkable. 12.5 cm x 4.1 cm x 5.3 cm. No hydronephrosis. No shadowing calculus. No focal lesion. No perinephric collection is demonstrated. BLADDER: Mildly distended, maximum diameter 5 cm, calculated volume of 46 cc, 4 mm anterior wall. Neither ureteral jet is seen. Post void bladder volume 3 cc. US/Kidney and Bladder IMPRESSION: Unremarkable kidneys and bladder. Electronically Signed: Marilou Metzger MD at 8:55 EDT Reading Location ID and State: [address] [place] [address] Tel , Service support , CC: MIRI Flores Flaker Tender: Signed Connie Flores [facility] Work Phone: Start: 12-09-2022 US urinary tract SPECIAL EVENT ASSISTANTNury Flores Work Phone: Start: 04-06-2021 End: 04-07-2021 Virtual Office Visit Comments: See Note; NOTES: [facility] Services [address] [place] [address] OFFICE VISIT Date of Service: 04/06/21 MR#: [id number] Acct: [id number] Patient: PETE BARR Rep #: [id number] : 1960 Provider: MIRI argueta Age/Sex: 60/M [facility] [facility] Status: Signed Intake Vital Signs 04/06/21 15:50 Height 6 ft Weight: 260 lb BMI 35.2 Intake Visit Reasons: COVID-19 Allergies Penicillins Allergy (Verified 04/06/21 16:02) unknown HPI HPI Details: Patient was informed that this visit will be billed to patient. This visit was conducted during COVID-19 pandemic. Statement read to the patient: This telehealth visit is being offered during our stay at home measures in response to the pandemic. It is subject to an office visit charge. Your health insurance will be billed for the cost of the infusion. The patient consents to continue. Symptom onset occurred: 04/02/21 Positive COVID-19 test occurred: 04/06/21 vaccine: PFIZER oxygen? NO The FDA has authorized the emergency use of monoclonal antibody treatment (bamlanivimab/etesevimab or casirivimab/imdevimab) for mild to moderate COVID-19 in adults and pediatric patients with positive results of direct SARS???Cov???2 viral testing ages 12 and older, at least 40 kg, who were not at high risk for progressing to severe COVID-19 and or hospitalization. The significant known and potential risks (allergic reactions or side effects from injection including brief pain, bleeding, bruising of the skin, soreness, swelling, possible infection at the infusion site) and benefits (decrease chance of progression to severe COVID-19) of a monoclonal antibody infusion, and the extent to which such potential risks and benefits are unknown. Patients treated with monoclonal antibody infusion should continue to self-isolate and use infection control measures (such as wear mask, isolate, social distance, avoid sharing personal items, clean and disinfect high touch surfaces, and frequent handwashing) according to the CDC guidelines. The fact sheet for patients, parents and caregivers will be provided prior to the administration of the medication. No drugs are approved by the FDA at this time to treat outpatients with mild or moderate symptoms of COVID-19. The following information was communicated to the patient or caregiver: Monoclonal antibody infusion is not an FDA approved drug. The FDA has authorized the emergency use of monoclonal antibody therapy. The patient had the option to refuse or accept treatment with monoclonal antibody therapy. The patient was informed that the number of people treated with monoclonal antibody therapy at this time is small. The potential benefits and the potential risks of monoclonal antibody therapy are not fully known. Potential benefits of monoclonal antibody include a reduced risk of progressing to severe COVID-19 infection. Potential risks or side effects of monoclonal antibody therapy include allergic reactions, side effects from injection including brief pain, bleeding, bruising of the skin, soreness, swelling, possible infection at the infusion site. The patient stated understanding of this information communicated and wished to proceed with monoclonal antibody infusion therapy. Current symptoms include: Chest congestion, nasal congestion, headache. Qualifier: BMI ROS Const Constitutional: Positive for headache(s) ENT ENT: Positive for nasal congestion and headache(s) Resp Respiratory: Positive for chest congestion Neuro Neurology: Positive for headache(s) Exam Const General: cooperative and no acute distress Resp Effort Inspection: normal respiratory effort and able to speak in complete sentences Neuro General: patient alert, patient awake and patient oriented x3 Cognition: normal cognition Speech: speech normal Psych Mental Status: mental status grossly normal Mood: congruent mood Attitude: cooperative Thought Process: normal Thought Content: normal Judgment: judgment good Details: Details:: Exam was limited due to phone visit with no video. Coding Level of Care Code New Pt Level 1 Telephone Patient Type New History Problem Focused Exam Problem Focused Medical Decision Making Straight Forward Diagnoses COVID-19 U07.1 BMI over 35 Time Spent (min) 10 Comment 61942 Assessment and Plan Assessment and Plan (1) COVID-19: Status: Acute Plan - Lakia Foster NP, SPECIAL EVENT ASSISTANT-C: The patient remains appropriate for the Monoclonal Antibody Infusion. I informed patient again that although the monoclonal antibodies have been studied in , it is still an emergency authorization and recommended that she speak with her PCP and/or researching information herself. The patient states understanding of this information communicated and wishes to proceed with monoclonal antibody infusion therapy. Patient agrees to receive either balanivimab/etesvimab or casirivimab/imdevimab upon availability. (2) BMI over 35: Status: Acute 04/06/21 4716 <Electronically signed by Lakia Foster NP SPECIAL EVENT ASSISTANT-C> Date Lakia CHERY Cosigner Signature: Date (if applicable) CC: SPECIAL EVENT ASSISTANT-Johan Weeks TELEPHONIC NURSE Work Phone: Start: 04-22-2020 End: 04-22-2020 Shoulder min 2 Views Comments: See Note; NOTES: [facility] Radiology [address] [place] [address] Shoulder min 2 Views MR#: [id number] Acct: [id number] Name: PETE BARR Rep #: [id number] : 1960 M 59 From: Allie Chong MD PCP: MIRI Suero Status: DEP AMB Study: Shoulder min 2 Views Date of Exam: 04/22/20 Exam# [id number] Ordering Dr: Trini Weeks NP STUDY: X-RAY - RIGHT SHOULDER REASON FOR EXAM: Male, 59 years old. PAIN TECHNIQUE: 4 view(s) of the shoulder. COMPARISON: None. FINDINGS: There is mild degenerative arthrosis of the glenohumeral articulation. There is degenerative arthrosis of the acromioclavicular joint without inferior osseous spur formation. Normal acromion. Normal humeral head and visualized proximal humerus. The soft tissue structures are unremarkable. Normal visualized pulmonary apex. RAD/Shoulder min 2 Views IMPRESSION: Normally located shoulder without fracture, osteolytic or blastic bone lesion. Mild degenerative changes of the glenohumeral joint and acromioclavicular joint. Electronically Signed: Allie Chong MD at 22:18 EST , Service support , CC: MIRI Weeks Flaker Tender: Signed Trini Weeks Work Phone: had 2 Fistula surger ies done by [facility] Amadeo Cardona had 2 Fistula surger ies done by [facility] Amadeo Cardona had 2 Fistula surger ies done by [facility] Mary King MA had 2 Fistula surger ies done by [facility] Anabel Lopez MA had 2 Fistula surger ies done by [facility] Connie Flores TELEPHONIC NURSE Work Phone: had 2 Fistula surger ies done by [facility] Kalie Flores CMA Hemorrhoidectomy Amadeo nolen Comment on above: in his 30s Hemorrhoidectomy Amadeo nolen Comment on above: in his 30s Hemorrhoidectomy Mary cortez MA Comment on above: in his 30s Hemorrhoidectomy Anabel merritt MA Comment on above: in his 30s Hemorrhoidectomy Connie louie TELEPHONIC NURSE Work Phone: Comment on above: in his 30s Hemorrhoidectomy Kalie guerrero GRAD INTERN Comment on above: in his 30s Plan of Treatment Date Care Activity Detail Author Start: 12-05-2022 Procedure Education Eprescribe d prescriptions (G8553) [facility] Work Phone: Start: 12-05-2022 Provider Instruction s for Treatment [facility] Work Phone: Start: 11-29-2022 Bilirubin direct BILIRUBIN, DI RECT (43394) : Do before next visit in fall [facility] Work Phone: Start: 11-29-2022 Hepatic function panel HEPATIC FUNCTION PANEL (86362) : Do before next visit in fall [facility]; [facility] Work Phone: Start: 11-21-2022 Assay of thyroid stimulating hormone tsh TSH (THYROID STIMULATING HORMONE) (27972) [facility]; [facility] Work Phone: Start: 11-21-2022 Blood count complete auto&auto difrntl wbc CBC, PLATELETS & AUT DIFF (51514) [facility]; [facility] Work Phone: Start: 11-21-2022 Comprehensive metabo lic panel METABOLIC PANEL, COMPREHENSIVE (58221) [facility]; [facility] Work Phone: Start: 11-21-2022 Creatinine other source MICROA LB;CREAT RATION, RAND UR (70013) [facility]; [facility] Work Phone: Start: 11-21-2022 Lipid panel LIPID PANEL (94609) [facility]; [facility] Work Phone: Start: 11-21-2022 Patient Education Compr [facility]; [facility] Work Phone: Start: 11-21-2022 Provider Instruction s for Treatment Follow up in 2 weeks for hypertension, med adjustment [facility]; [facility] Work Phone: Start: 11-21-2022 Urinalysis qual/semiquant except immunoassays URINALYSIS (55742) [facility]; [facility] Work Phone: Start: 04-25-2022 Patient Education Hypertension Compr [facility]; [facility] Work Phone: Start: 04-25-2022 Procedure Education Eprescribe d prescriptions (G8553) [facility]; [facility] Work Phone: Start: 04-25-2022 Provider Instruction s for Treatment Follow up in 1 year or as needed [facility]; [facility] Work Phone: Start: 04-08-2022 Assay of blood/uric acid URIC ACID BLOOD (80967) [facility]; [facility] Work Phone: Start: 04-08-2022 Assay of prostate specific antigen total PSA (PROSTATE SPECIFIC ANTIGEN) (65863) [facility]; [facility] Work Phone: Start: 04-08-2022 Assay of thyroid stimulating hormone tsh TSH (THYROID STIMULATING HORMONE) (53155) [facility]; [facility] Work Phone: Start: 04-08-2022 CBC, PLATELETS & MAN UAL DIFF (14990) CBC, PLATELETS & MANUAL DIFF (64589) [facility]; [facility] Work Phone: Start: 04-08-2022 Comprehensive metabo lic panel METABOLIC PANEL, COMPREHENSIVE (70608) [facility]; [facility] Work Phone: Start: 04-08-2022 Lipid panel LIPID PANEL (17176) [facility]; [facility] Work Phone: Start: 04-08-2022 Urine albumin quantitative MICROALBUMIN: CREATININE RATIO (16635) AND (56181) [facility]; [facility] Work Phone: Start: 04-08-2022 Urnls dip stick/tabl et reagent auto microscopy URINALYSIS, AUTOMATED W/ MICRO (41328) [facility]; [facility] Work Phone: Start: 05-03-2021 Procedure Education Eprescribe d prescriptions (G8553) [facility]; [facility] Work Phone: Start: 05-03-2021 Provider Instruction s for Treatment Follow up in 4 months [facility]; [facility] Work Phone: Start: 04-09-2021 Procedure Education Eprescribe d prescriptions (G8553) [facility]; [facility] Work Phone: Start: 04-09-2021 Provider Instruction s for Treatment Follow up in 3 weeks front office specialist to call pt and set up in person [facility]; [facility] Work Phone: Start: 04-06-2021 Procedure Education Eprescribe d prescriptions (G8553) [facility]; [facility] Work Phone: Start: 04-06-2021 Provider Instruction s for Treatment Follow up in 3 days help desk analyst to make follow up virtual apt [facility]; [facility] Work Phone: Start: 04-06-2021 Iaadiadoo influenza 2019 Novel Coronavirus (COVID-19), NICOLE (62717) [facility]; [facility] Work Phone: Start: 03-19-2021 Provider Instruction s for Treatment HTN/CAD Red Flags [facility]; [facility] Work Phone: Start: 08-03-2020 Procedure Education Eprescribe d prescriptions (G8553) [facility]; [facility] Work Phone: Start: 04-29-2020 Procedure Education Eprescribe d prescriptions (G8553) [facility]; [facility] Work Phone: Start: 04-29-2020 Provider Instruction s for Treatment [facility]; [facility] Work Phone: Start: 04-22-2020 Assay of prostate specific antigen total PSA (PROSTATE SPECIFIC ANTIGEN) (V76.44) [facility]; [facility] Work Phone: Comment on above: 04-23-20 Start: 04-22-2020 Assay of blood/uric acid URIC ACID BLOOD (12766) [facility]; [facility] Work Phone: Comment on above: 04-23-20 Start: 04-22-2020 Lipid panel Lipid Panel (28573) [facility]; [facility] Work Phone: Comment on above: 04-23-20 Start: 04-22-2020 Urine albumin quantitative MICROALBUMIN: CREATININE RATIO (29088) AND (33029) [facility]; [facility] Work Phone: Comment on above: 04-23-20 Start: 04-22-2020 TSH Qn TSH (29809) [facility]; [facility] Work Phone: Comment on above: 04-23-20 Start: 04-22-2020 Blood count complete auto&auto difrntl wbc CBC, Platelets & Auto Diff (67168) [facility]; [facility] Work Phone: Comment on above: 04-23-20 Start: 04-22-2020 Comprehensive metabo lic panel Metabolic Panel, Comprehensive (13506) [facility]; [facility] Work Phone: Comment on above: 04-23-2020 Start: 04-22-2020 Procedure Education Eprescribe d prescriptions (G8553) [facility]; [facility] Work Phone: Start: 04-22-2020 Provider Instruction s for Treatment [facility]; [facility] Work Phone: [facility] Work Phone: [facility]; [facility] Work Phone: [facility] Work Phone: [facility] Work Phone: [facility]; [facility] Work Phone: [facility]; [facility] Work Phone: Payers Date Payer Category Payer Self-pay [id number] 2024 Medicare [id number] 2024 Private Health Insurance [id number] 2022 Private Health Insurance [id number] 2022 Private Health Insurance [id number] 2020 Unknown [id number] 1959 Unknown [id number] 1959 Unknown [id number] 2.16.8 [id number] 1959 Unknown [id number] 2.16.8 [id number] 1959 Unknown [id number] 2.16.8 [id number] Unknown Unknown [id number] 2.16.8 [id number] Unknown [id number] 2.16.8 [id number] Unknown [id number] 2.16.8 [id number] Unknown [id number] 2.16.8 [id number] Unknown [id number] 2.16.8 [id number] Unknown [id number] 2.16.8 [id number] Social History Date Type Detail Facility Alcohol Use: Alcohol Use: [facility]; [facility] Work Phone: Caffeine Use Caffeine Use [facility]; [facility] Work Phone: Comment on above: 1c in am once in a while a so cial cigar Alcohol Use: Alcohol Use: [facility] Work Phone: Start: 12-12-2022 Tobacco smoking status ARIS Unknown if ever smoked [facility] Start: 1960 Sex Assigned At Male W [facility] Start: 12-12-2022 Tobacco smoking status NHIS Current some day smoker [facility] Start: 08-08-2024 Sex Male (finding) [facility] Clinical Notes Note Date & Type Note Facility Evaluation note Diagnosis Onset Date Essential hypertension chron ic Obesity chronic [facility] Work Phone: Evaluation noteNo assessment information available [facility] Work Phone: Instructions* Name Dates Details Patient Instructions Indication:BMI 36.0-36.9,adult Start:03-May-2021 Instruction Type:Provider Instructions for Treatment How to Access Health Informa tion Online using Patient Portal and 3rd [employer] Apps Indication:BMI 36.0-36.9,adult Start:03-May-2021 Instruction Type:Patient Education Patient Instructions Indication:BMI 36.0-36.9,adult Start:09-Apr-2021 Instruction Type:Provider Instructions for Treatment How to Access Health Informa tion Online using Patient Portal and 3rd [employer] Apps Indication:BMI 36.0-36.9,adult Start:09-Apr-2021 Instruction Type:Patient Education Patient Instructions Indication:Nonsmoker Start:06-Apr-2021 Instruction Type:Provider Instructions for Treatment How to Access Health Informa tion Online using Patient Portal and 3rd [employer] Apps Indication:Nonsmoker Start:06-Apr-2021 Instruction Type:Patient Education Patient Instructions Indication:BMI 36.0-36.9,adult Start:03-Aug-2020 Instruction Type:Provider Instructions for Treatment How to Access Health Informa tion Online using Patient Portal and 3rd [employer] Apps Indication:BMI 36.0-36.9,adult Start:03-Aug-2020 Instruction Type:Patient Education Patient Instructions Indication:Nonsmoker Start:29-Apr-2020 Instruction Type:Provider Instructions for Treatment How to Access Health Informa tion Online using Patient Portal and 3rd [employer] Apps Indication:Nonsmoker Start:29-Apr-2020 Instruction Type:Patient Education Patient Instructions Indication:Hypertension Start:22-Apr-2020 Instruction Type:Provider Instructions for Treatment How to Access Health Informa tion Online using Patient Portal and 3rd [employer] Apps Indication:Hypertension Start:22-Apr-2020 Instruction Type:Patient Education [facility]; [facility] Work Phone: Instructions* Name Dates Details Patient Instructions Indication:BMI 36.0-36.9,adult Start:03-May-2021 Instruction Type:Provider Instructions for Treatment How to Access Health Informa tion Online using Patient Portal and 3rd [employer] Apps Indication:BMI 36.0-36.9,adult Start:03-May-2021 Instruction Type:Patient Education Patient Instructions Indication:BMI 36.0-36.9,adult Start:09-Apr-2021 Instruction Type:Provider Instructions for Treatment How to Access Health Informa tion Online using Patient Portal and 3rd [employer] Apps Indication:BMI 36.0-36.9,adult Start:09-Apr-2021 Instruction Type:Patient Education Patient Instructions Indication:Nonsmoker Start:06-Apr-2021 Instruction Type:Provider Instructions for Treatment How to Access Health Informa tion Online using Patient Portal and [employer]rd [employer] Apps Indication:Nonsmoker Start:06-Apr-2021 Instruction Type:Patient Education Patient Instructions Indication:BMI 36.0-36.9,adult Start:03-Aug-2020 Instruction Type:Provider Instructions for Treatment How to Access Health Informa tion Online using Patient Portal and 3rd [employer] Apps Indication:BMI 36.0-36.9,adult Start:03-Aug-2020 Instruction Type:Patient Education Patient Instructions Indication:Nonsmoker Start:29-Apr-2020 Instruction Type:Provider Instructions for Treatment How to Access Health Informa tion Online using Patient Portal and 3rd [employer] Apps Indication:Nonsmoker Start:29-Apr-2020 Instruction Type:Patient Education Patient Instructions Indication:Hypertension Start:22-Apr-2020 Instruction Type:Provider Instructions for Treatment How to Access Health Informa tion Online using Patient Portal and 3rd [employer] Apps Indication:Hypertension Start:22-Apr-2020 Instruction Type:Patient Education [facility]; [facility] Work Phone: Instructions* Name Dates Details Patient Instructions Indication:BMI 36.0-36.9,adult Start:25-Apr-2022 Instruction Type:Provider Instructions for Treatment How to Access Health Informa tion Online using Patient Portal and 3rd [employer] Apps Indication:BMI 36.0-36.9,adult Start:25-Apr-2022 Instruction Type:Patient Education Patient Instructions Indication:BMI 36.0-36.9,adult Start:03-May-2021 Instruction Type:Provider Instructions for Treatment How to Access Health Informa tion Online using Patient Portal and [employer]rd [employer] Apps Indication:BMI 36.0-36.9,adult Start:03-May-2021 Instruction Type:Patient Education Patient Instructions Indication:BMI 36.0-36.9,adult Start:09-Apr-2021 Instruction Type:Provider Instructions for Treatment How to Access Health Informa tion Online using Patient Portal and 3rd [employer] Apps Indication:BMI 36.0-36.9,adult Start:09-Apr-2021 Instruction Type:Patient Education Patient Instructions Indication:Nonsmoker Start:06-Apr-2021 Instruction Type:Provider Instructions for Treatment How to Access Health Informa tion Online using Patient Portal and 3rd [employer] Apps Indication:Nonsmoker Start:06-Apr-2021 Instruction Type:Patient Education Patient Instructions Indication:BMI 36.0-36.9,adult Start:03-Aug-2020 Instruction Type:Provider Instructions for Treatment How to Access Health Informa tion Online using Patient Portal and 3rd [employer] Apps Indication:BMI 36.0-36.9,adult Start:03-Aug-2020 Instruction Type:Patient Education Patient Instructions Indication:Nonsmoker Start:29-Apr-2020 Instruction Type:Provider Instructions for Treatment How to Access Health Informa tion Online using Patient Portal and 3rd [employer] Apps Indication:Nonsmoker Start:29-Apr-2020 Instruction Type:Patient Education Patient Instructions Indication:Hypertension Start:22-Apr-2020 Instruction Type:Provider Instructions for Treatment How to Access Health Informa tion Online using Patient Portal and 3rd [employer] Apps Indication:Hypertension Start:22-Apr-2020 Instruction Type:Patient Education [facility]; [facility] Work Phone: Instructions* Name Dates Details Patient Instructions Indication:BMI 36.0-36.9,adult Start:25-Apr-2022 Instruction Type:Provider Instructions for Treatment How to Access Health Informa tion Online using Patient Portal and 3rd [employer] Apps Indication:BMI 36.0-36.9,adult Start:25-Apr-2022 Instruction Type:Patient Education Patient Instructions Indication:BMI 36.0-36.9,adult Start:03-May-2021 Instruction Type:Provider Instructions for Treatment How to Access Health Informa tion Online using Patient Portal and 3rd [employer] Apps Indication:BMI 36.0-36.9,adult Start:03-May-2021 Instruction Type:Patient Education Patient Instructions Indication:BMI 36.0-36.9,adult Start:09-Apr-2021 Instruction Type:Provider Instructions for Treatment How to Access Health Informa tion Online using Patient Portal and 3rd [employer] Apps Indication:BMI 36.0-36.9,adult Start:09-Apr-2021 Instruction Type:Patient Education Patient Instructions Indication:Nonsmoker Start:06-Apr-2021 Instruction Type:Provider Instructions for Treatment How to Access Health Informa tion Online using Patient Portal and 3rd [employer] Apps Indication:Nonsmoker Start:06-Apr-2021 Instruction Type:Patient Education Patient Instructions Indication:BMI 36.0-36.9,adult Start:03-Aug-2020 Instruction Type:Provider Instructions for Treatment How to Access Health Informa tion Online using Patient Portal and 3rd [employer] Apps Indication:BMI 36.0-36.9,adult Start:03-Aug-2020 Instruction Type:Patient Education Patient Instructions Indication:Nonsmoker Start:29-Apr-2020 Instruction Type:Provider Instructions for Treatment How to Access Health Informa tion Online using Patient Portal and 3rd [employer] Apps Indication:Nonsmoker Start:29-Apr-2020 Instruction Type:Patient Education Patient Instructions Indication:Hypertension Start:22-Apr-2020 Instruction Type:Provider Instructions for Treatment How to Access Health Informa tion Online using Patient Portal and 3rd [employer] Apps Indication:Hypertension Start:22-Apr-2020 Instruction Type:Patient Education [facility]; [facility] Work Phone: Instructions* Name Dates Details Patient Instructions Indication:BMI 36.0-36.9,adult Start:25-Apr-2022 Instruction Type:Provider Instructions for Treatment How to Access Health Informa tion Online using Patient Portal and 3rd [employer] Apps Indication:BMI 36.0-36.9,adult Start:25-Apr-2022 Instruction Type:Patient Education Patient Instructions Indication:BMI 36.0-36.9,adult Start:03-May-2021 Instruction Type:Provider Instructions for Treatment How to Access Health Informa tion Online using Patient Portal and 3rd [employer] Apps Indication:BMI 36.0-36.9,adult Start:03-May-2021 Instruction Type:Patient Education Patient Instructions Indication:BMI 36.0-36.9,adult Start:09-Apr-2021 Instruction Type:Provider Instructions for Treatment How to Access Health Informa tion Online using Patient Portal and 3rd [employer] Apps Indication:BMI 36.0-36.9,adult Start:09-Apr-2021 Instruction Type:Patient Education Patient Instructions Indication:Nonsmoker Start:06-Apr-2021 Instruction Type:Provider Instructions for Treatment How to Access Health Informa tion Online using Patient Portal and 3rd [employer] Apps Indication:Nonsmoker Start:06-Apr-2021 Instruction Type:Patient Education Patient Instructions Indication:BMI 36.0-36.9,adult Start:03-Aug-2020 Instruction Type:Provider Instructions for Treatment How to Access Health Informa tion Online using Patient Portal and 3rd [employer] Apps Indication:BMI 36.0-36.9,adult Start:03-Aug-2020 Instruction Type:Patient Education Patient Instructions Indication:Nonsmoker Start:29-Apr-2020 Instruction Type:Provider Instructions for Treatment How to Access Health Informa tion Online using Patient Portal and 3rd [employer] Apps Indication:Nonsmoker Start:29-Apr-2020 Instruction Type:Patient Education Patient Instructions Indication:Hypertension Start:22-Apr-2020 Instruction Type:Provider Instructions for Treatment How to Access Health Informa tion Online using Patient Portal and 3rd [employer] Apps Indication:Hypertension Start:22-Apr-2020 Instruction Type:Patient Education [facility]; [facility] Work Phone: Instructions* Name Dates Details Patient Instructions Indication:BMI 36.0-36.9,adult Start:25-Apr-2022 Instruction Type:Provider Instructions for Treatment How to Access Health Informa tion Online using Patient Portal and 3rd [employer] Apps Indication:BMI 36.0-36.9,adult Start:25-Apr-2022 Instruction Type:Patient Education Patient Instructions Indication:BMI 36.0-36.9,adult Start:03-May-2021 Instruction Type:Provider Instructions for Treatment How to Access Health Informa tion Online using Patient Portal and 3rd [employer] Apps Indication:BMI 36.0-36.9,adult Start:03-May-2021 Instruction Type:Patient Education Patient Instructions Indication:BMI 36.0-36.9,adult Start:09-Apr-2021 Instruction Type:Provider Instructions for Treatment How to Access Health Informa tion Online using Patient Portal and 3rd [employer] Apps Indication:BMI 36.0-36.9,adult Start:09-Apr-2021 Instruction Type:Patient Education Patient Instructions Indication:Nonsmoker Start:06-Apr-2021 Instruction Type:Provider Instructions for Treatment How to Access Health Informa tion Online using Patient Portal and 3rd [employer] Apps Indication:Nonsmoker Start:06-Apr-2021 Instruction Type:Patient Education Patient Instructions Indication:BMI 36.0-36.9,adult Start:03-Aug-2020 Instruction Type:Provider Instructions for Treatment How to Access Health Informa tion Online using Patient Portal and 3rd [employer] Apps Indication:BMI 36.0-36.9,adult Start:03-Aug-2020 Instruction Type:Patient Education Patient Instructions Indication:Nonsmoker Start:29-Apr-2020 Instruction Type:Provider Instructions for Treatment How to Access Health Informa tion Online using Patient Portal and 3rd [employer] Apps Indication:Nonsmoker Start:29-Apr-2020 Instruction Type:Patient Education Patient Instructions Indication:Hypertension Start:22-Apr-2020 Instruction Type:Provider Instructions for Treatment How to Access Health Informa tion Online using Patient Portal and 3rd [employer] Apps Indication:Hypertension Start:22-Apr-2020 Instruction Type:Patient Education [facility]; [facility] Work Phone: Instructions* Name Dates Details Patient Instructions Indication:BMI 36.0-36.9,adult Start:25-Apr-2022 Instruction Type:Provider Instructions for Treatment How to Access Health Informa tion Online using Patient Portal and 3rd [employer] Apps Indication:BMI 36.0-36.9,adult Start:25-Apr-2022 Instruction Type:Patient Education Patient Instructions Indication:BMI 36.0-36.9,adult Start:03-May-2021 Instruction Type:Provider Instructions for Treatment How to Access Health Informa tion Online using Patient Portal and 3rd [employer] Apps Indication:BMI 36.0-36.9,adult Start:03-May-2021 Instruction Type:Patient Education Patient Instructions Indication:BMI 36.0-36.9,adult Start:09-Apr-2021 Instruction Type:Provider Instructions for Treatment How to Access Health Informa tion Online using Patient Portal and 3rd [employer] Apps Indication:BMI 36.0-36.9,adult Start:09-Apr-2021 Instruction Type:Patient Education Patient Instructions Indication:Nonsmoker Start:06-Apr-2021 Instruction Type:Provider Instructions for Treatment How to Access Health Informa tion Online using Patient Portal and 3rd [employer] Apps Indication:Nonsmoker Start:06-Apr-2021 Instruction Type:Patient Education Patient Instructions Indication:BMI 36.0-36.9,adult Start:03-Aug-2020 Instruction Type:Provider Instructions for Treatment How to Access Health Informa tion Online using Patient Portal and 3rd [employer] Apps Indication:BMI 36.0-36.9,adult Start:03-Aug-2020 Instruction Type:Patient Education Patient Instructions Indication:Nonsmoker Start:29-Apr-2020 Instruction Type:Provider Instructions for Treatment How to Access Health Informa tion Online using Patient Portal and 3rd [employer] Apps Indication:Nonsmoker Start:29-Apr-2020 Instruction Type:Patient Education Patient Instructions Indication:Hypertension Start:22-Apr-2020 Instruction Type:Provider Instructions for Treatment How to Access Health Informa tion Online using Patient Portal and 3rd [employer] Apps Indication:Hypertension Start:22-Apr-2020 Instruction Type:Patient Education [facility]; [facility] Work Phone: Instructions* Name Dates Details Patient Instructions Indication:BMI 36.0-36.9,adult Start:25-Apr-2022 Instruction Type:Provider Instructions for Treatment How to Access Health Informa tion Online using Patient Portal and [employer]rd [employer] Apps Indication:BMI 36.0-36.9,adult Start:25-Apr-2022 Instruction Type:Patient Education Patient Instructions Indication:BMI 36.0-36.9,adult Start:03-May-2021 Instruction Type:Provider Instructions for Treatment How to Access Health Informa tion Online using Patient Portal and 3rd [employer] Apps Indication:BMI 36.0-36.9,adult Start:03-May-2021 Instruction Type:Patient Education Patient Instructions Indication:BMI 36.0-36.9,adult Start:09-Apr-2021 Instruction Type:Provider Instructions for Treatment How to Access Health Informa tion Online using Patient Portal and [employer]rd [employer] Apps Indication:BMI 36.0-36.9,adult Start:09-Apr-2021 Instruction Type:Patient Education Patient Instructions Indication:Nonsmoker Start:06-Apr-2021 Instruction Type:Provider Instructions for Treatment How to Access Health Informa tion Online using Patient Portal and [employer]rd [employer] Apps Indication:Nonsmoker Start:06-Apr-2021 Instruction Type:Patient Education Patient Instructions Indication:BMI 36.0-36.9,adult Start:03-Aug-2020 Instruction Type:Provider Instructions for Treatment How to Access Health Informa tion Online using Patient Portal and [employer]rd [employer] Apps Indication:BMI 36.0-36.9,adult Start:03-Aug-2020 Instruction Type:Patient Education Patient Instructions Indication:Nonsmoker Start:29-Apr-2020 Instruction Type:Provider Instructions for Treatment How to Access Health Informa tion Online using Patient Portal and [employer]rd [employer] Apps Indication:Nonsmoker Start:29-Apr-2020 Instruction Type:Patient Education Patient Instructions Indication:Hypertension Start:22-Apr-2020 Instruction Type:Provider Instructions for Treatment How to Access Health Informa tion Online using Patient Portal and [employer]rd [employer] Apps Indication:Hypertension Start:22-Apr-2020 Instruction Type:Patient Education [facility]; [facility] Work Phone: Instructions* Name Dates Details Patient Instructions Indication:Hypertension Start:05-Dec-2022 Instruction Type:Provider Instructions for Treatment How to Access Health Informa tion Online using Patient Portal and [employer]rd [employer] Apps Indication:Hypertension Start:05-Dec-2022 Instruction Type:Patient Education Patient Instructions Indication:BMI 36.0-36.9,adult Start:25-Apr-2022 Instruction Type:Provider Instructions for Treatment How to Access Health Informa tion Online using Patient Portal and [employer]rd [employer] Apps Indication:BMI 36.0-36.9,adult Start:25-Apr-2022 Instruction Type:Patient Education Patient Instructions Indication:BMI 36.0-36.9,adult Start:03-May-2021 Instruction Type:Provider Instructions for Treatment How to Access Health Informa tion Online using Patient Portal and [employer]rd [employer] Apps Indication:BMI 36.0-36.9,adult Start:03-May-2021 Instruction Type:Patient Education Patient Instructions Indication:BMI 36.0-36.9,adult Start:09-Apr-2021 Instruction Type:Provider Instructions for Treatment How to Access Health Informa tion Online using Patient Portal and [employer]rd [employer] Apps Indication:BMI 36.0-36.9,adult Start:09-Apr-2021 Instruction Type:Patient Education Patient Instructions Indication:Nonsmoker Start:06-Apr-2021 Instruction Type:Provider Instructions for Treatment How to Access Health Informa tion Online using Patient Portal and [employer]rd [employer] Apps Indication:Nonsmoker Start:06-Apr-2021 Instruction Type:Patient Education Patient Instructions Indication:BMI 36.0-36.9,adult Start:03-Aug-2020 Instruction Type:Provider Instructions for Treatment How to Access Health Informa tion Online using Patient Portal and [employer]rd [employer] Apps Indication:BMI 36.0-36.9,adult Start:03-Aug-2020 Instruction Type:Patient Education Patient Instructions Indication:Nonsmoker Start:29-Apr-2020 Instruction Type:Provider Instructions for Treatment How to Access Health Informa tion Online using Patient Portal and [employer]rd [employer] Apps Indication:Nonsmoker Start:29-Apr-2020 Instruction Type:Patient Education Patient Instructions Indication:Hypertension Start:22-Apr-2020 Instruction Type:Provider Instructions for Treatment How to Access Health Informa tion Online using Patient Portal and [employer] Apps Indication:Hypertension Start:22-Apr-2020 Instruction Type:Patient Education [facility]; [facility] Work Phone: Instructions* Name Dates Details Patient Instructions Indication:Hypertension Start:05-Dec-2022 Instruction Type:Provider Instructions for Treatment How to Access Health Informa tion Online using Patient Portal and [employer]rd [employer] Apps Indication:Hypertension Start:05-Dec-2022 Instruction Type:Patient Education Patient Instructions Indication:BMI 36.0-36.9,adult Start:25-Apr-2022 Instruction Type:Provider Instructions for Treatment How to Access Health Informa tion Online using Patient Portal and [employer]rd [employer] Apps Indication:BMI 36.0-36.9,adult Start:25-Apr-2022 Instruction Type:Patient Education Patient Instructions Indication:BMI 36.0-36.9,adult Start:03-May-2021 Instruction Type:Provider Instructions for Treatment How to Access Health Informa tion Online using Patient Portal and [employer]rd [employer] Apps Indication:BMI 36.0-36.9,adult Start:03-May-2021 Instruction Type:Patient Education Patient Instructions Indication:BMI 36.0-36.9,adult Start:09-Apr-2021 Instruction Type:Provider Instructions for Treatment How to Access Health Informa tion Online using Patient Portal and [employer]rd [employer] Apps Indication:BMI 36.0-36.9,adult Start:09-Apr-2021 Instruction Type:Patient Education Patient Instructions Indication:Nonsmoker Start:06-Apr-2021 Instruction Type:Provider Instructions for Treatment How to Access Health Informa tion Online using Patient Portal and [employer] Apps Indication:Nonsmoker Start:06-Apr-2021 Instruction Type:Patient Education Patient Instructions Indication:BMI 36.0-36.9,adult Start:03-Aug-2020 Instruction Type:Provider Instructions for Treatment How to Access Health Informa tion Online using Patient Portal and [employer] Apps Indication:BMI 36.0-36.9,adult Start:03-Aug-2020 Instruction Type:Patient Education Patient Instructions Indication:Nonsmoker Start:29-Apr-2020 Instruction Type:Provider Instructions for Treatment How to Access Health Informa tion Online using Patient Portal and [employer] Apps Indication:Nonsmoker Start:29-Apr-2020 Instruction Type:Patient Education Patient Instructions Indication:Hypertension Start:22-Apr-2020 Instruction Type:Provider Instructions for Treatment How to Access Health Informa tion Online using Patient Portal and [employer] Apps Indication:Hypertension Start:22-Apr-2020 Instruction Type:Patient Education [facility]; [facility] Work Phone: Instructions* Name Dates Details Patient Instructions Indication:Hypertension Start:05-Dec-2022 Instruction Type:Provider Instructions for Treatment How to Access Health Informa tion Online using Patient Portal and [employer]rd [employer] Apps Indication:Hypertension Start:05-Dec-2022 Instruction Type:Patient Education Patient Instructions Indication:BMI 36.0-36.9,adult Start:25-Apr-2022 Instruction Type:Provider Instructions for Treatment How to Access Health Informa tion Online using Patient Portal and [employer] Apps Indication:BMI 36.0-36.9,adult Start:25-Apr-2022 Instruction Type:Patient Education Patient Instructions Indication:BMI 36.0-36.9,adult Start:03-May-2021 Instruction Type:Provider Instructions for Treatment How to Access Health Informa tion Online using Patient Portal and [employer] Apps Indication:BMI 36.0-36.9,adult Start:03-May-2021 Instruction Type:Patient Education Patient Instructions Indication:BMI 36.0-36.9,adult Start:09-Apr-2021 Instruction Type:Provider Instructions for Treatment How to Access Health Informa tion Online using Patient Portal and [employer] Apps Indication:BMI 36.0-36.9,adult Start:09-Apr-2021 Instruction Type:Patient Education Patient Instructions Indication:Nonsmoker Start:06-Apr-2021 Instruction Type:Provider Instructions for Treatment How to Access Health Informa tion Online using Patient Portal and [employer] Apps Indication:Nonsmoker Start:06-Apr-2021 Instruction Type:Patient Education Patient Instructions Indication:BMI 36.0-36.9,adult Start:03-Aug-2020 Instruction Type:Provider Instructions for Treatment How to Access Health Informa tion Online using Patient Portal and [employer] Apps Indication:BMI 36.0-36.9,adult Start:03-Aug-2020 Instruction Type:Patient Education Patient Instructions Indication:Nonsmoker Start:29-Apr-2020 Instruction Type:Provider Instructions for Treatment How to Access Health Informa tion Online using Patient Portal and [employer] Apps Indication:Nonsmoker Start:29-Apr-2020 Instruction Type:Patient Education Patient Instructions Indication:Hypertension Start:22-Apr-2020 Instruction Type:Provider Instructions for Treatment How to Access Health Informa tion Online using Patient Portal and [employer] Apps Indication:Hypertension Start:22-Apr-2020 Instruction Type:Patient Education [facility]; [facility] Work Phone: Instructions* Name Dates Details Patient Instructions Indication:Hypertension Start:05-Dec-2022 Instruction Type:Provider Instructions for Treatment How to Access Health Informa tion Online using Patient Portal and [employer] Apps Indication:Hypertension Start:05-Dec-2022 Instruction Type:Patient Education Patient Instructions Indication:BMI 36.0-36.9,adult Start:25-Apr-2022 Instruction Type:Provider Instructions for Treatment How to Access Health Informa tion Online using Patient Portal and [employer] Apps Indication:BMI 36.0-36.9,adult Start:25-Apr-2022 Instruction Type:Patient Education Patient Instructions Indication:BMI 36.0-36.9,adult Start:03-May-2021 Instruction Type:Provider Instructions for Treatment How to Access Health Informa tion Online using Patient Portal and [employer] Apps Indication:BMI 36.0-36.9,adult Start:03-May-2021 Instruction Type:Patient Education Patient Instructions Indication:BMI 36.0-36.9,adult Start:09-Apr-2021 Instruction Type:Provider Instructions for Treatment How to Access Health Informa tion Online using Patient Portal and [employer] Apps Indication:BMI 36.0-36.9,adult Start:09-Apr-2021 Instruction Type:Patient Education Patient Instructions Indication:Nonsmoker Start:06-Apr-2021 Instruction Type:Provider Instructions for Treatment How to Access Health Informa tion Online using Patient Portal and [employer] Apps Indication:Nonsmoker Start:06-Apr-2021 Instruction Type:Patient Education Patient Instructions Indication:BMI 36.0-36.9,adult Start:03-Aug-2020 Instruction Type:Provider Instructions for Treatment How to Access Health Informa tion Online using Patient Portal and [employer] Apps Indication:BMI 36.0-36.9,adult Start:03-Aug-2020 Instruction Type:Patient Education Patient Instructions Indication:Nonsmoker Start:29-Apr-2020 Instruction Type:Provider Instructions for Treatment How to Access Health Informa tion Online using Patient Portal and [employer] Apps Indication:Nonsmoker Start:29-Apr-2020 Instruction Type:Patient Education Patient Instructions Indication:Hypertension Start:22-Apr-2020 Instruction Type:Provider Instructions for Treatment How to Access Health Informa tion Online using Patient Portal and [employer] Apps Indication:Hypertension Start:22-Apr-2020 Instruction Type:Patient Education [facility]; [facility] Work Phone: Instructions* Name Dates Details Patient Instructions Indication:Hypertension Start:05-Dec-2022 Instruction Type:Provider Instructions for Treatment How to Access Health Informa tion Online using Patient Portal and [employer] Apps Indication:Hypertension Start:05-Dec-2022 Instruction Type:Patient Education Patient Instructions Indication:BMI 36.0-36.9,adult Start:25-Apr-2022 Instruction Type:Provider Instructions for Treatment How to Access Health Informa tion Online using Patient Portal and [employer] Apps Indication:BMI 36.0-36.9,adult Start:25-Apr-2022 Instruction Type:Patient Education Patient Instructions Indication:BMI 36.0-36.9,adult Start:03-May-2021 Instruction Type:Provider Instructions for Treatment How to Access Health Informa tion Online using Patient Portal and [employer] Apps Indication:BMI 36.0-36.9,adult Start:03-May-2021 Instruction Type:Patient Education Patient Instructions Indication:BMI 36.0-36.9,adult Start:09-Apr-2021 Instruction Type:Provider Instructions for Treatment How to Access Health Informa tion Online using Patient Portal and [employer]rd [employer] Apps Indication:BMI 36.0-36.9,adult Start:09-Apr-2021 Instruction Type:Patient Education Patient Instructions Indication:Nonsmoker Start:06-Apr-2021 Instruction Type:Provider Instructions for Treatment How to Access Health Informa tion Online using Patient Portal and [employer] Apps Indication:Nonsmoker Start:06-Apr-2021 Instruction Type:Patient Education Patient Instructions Indication:BMI 36.0-36.9,adult Start:03-Aug-2020 Instruction Type:Provider Instructions for Treatment How to Access Health Informa tion Online using Patient Portal and [employer] Apps Indication:BMI 36.0-36.9,adult Start:03-Aug-2020 Instruction Type:Patient Education Patient Instructions Indication:Nonsmoker Start:29-Apr-2020 Instruction Type:Provider Instructions for Treatment How to Access Health Informa tion Online using Patient Portal and [employer] Apps Indication:Nonsmoker Start:29-Apr-2020 Instruction Type:Patient Education Patient Instructions Indication:Hypertension Start:22-Apr-2020 Instruction Type:Provider Instructions for Treatment How to Access Health Informa tion Online using Patient Portal and [employer] Apps Indication:Hypertension Start:22-Apr-2020 Instruction Type:Patient Education [facility]; [facility] Work Phone: Instructions* Name Dates Details Patient Instructions Indication:Hypertension Start:05-Dec-2022 Instruction Type:Provider Instructions for Treatment How to Access Health Informa tion Online using Patient Portal and [employer] Apps Indication:Hypertension Start:05-Dec-2022 Instruction Type:Patient Education Patient Instructions Indication:BMI 36.0-36.9,adult Start:25-Apr-2022 Instruction Type:Provider Instructions for Treatment How to Access Health Informa tion Online using Patient Portal and [employer]rd [employer] Apps Indication:BMI 36.0-36.9,adult Start:25-Apr-2022 Instruction Type:Patient Education Patient Instructions Indication:BMI 36.0-36.9,adult Start:03-May-2021 Instruction Type:Provider Instructions for Treatment How to Access Health Informa tion Online using Patient Portal and [employer]rd [employer] Apps Indication:BMI 36.0-36.9,adult Start:03-May-2021 Instruction Type:Patient Education Patient Instructions Indication:BMI 36.0-36.9,adult Start:09-Apr-2021 Instruction Type:Provider Instructions for Treatment How to Access Health Informa tion Online using Patient Portal and [employer] Apps Indication:BMI 36.0-36.9,adult Start:09-Apr-2021 Instruction Type:Patient Education Patient Instructions Indication:Nonsmoker Start:06-Apr-2021 Instruction Type:Provider Instructions for Treatment How to Access Health Informa tion Online using Patient Portal and [employer] Apps Indication:Nonsmoker Start:06-Apr-2021 Instruction Type:Patient Education Patient Instructions Indication:BMI 36.0-36.9,adult Start:03-Aug-2020 Instruction Type:Provider Instructions for Treatment How to Access Health Informa tion Online using Patient Portal and [employer] Apps Indication:BMI 36.0-36.9,adult Start:03-Aug-2020 Instruction Type:Patient Education Patient Instructions Indication:Nonsmoker Start:29-Apr-2020 Instruction Type:Provider Instructions for Treatment How to Access Health Informa tion Online using Patient Portal and [employer] Apps Indication:Nonsmoker Start:29-Apr-2020 Instruction Type:Patient Education Patient Instructions Indication:Hypertension Start:22-Apr-2020 Instruction Type:Provider Instructions for Treatment How to Access Health Informa tion Online using Patient Portal and [employer]rd [employer] Apps Indication:Hypertension Start:22-Apr-2020 Instruction Type:Patient Education [facility]; [facility] Work Phone: Instructions* Name Dates Details Patient Instructions Indication:Hypertension Start:05-Dec-2022 Instruction Type:Provider Instructions for Treatment How to Access Health Informa tion Online using Patient Portal and [employer]rd [employer] Apps Indication:Hypertension Start:05-Dec-2022 Instruction Type:Patient Education Patient Instructions Indication:BMI 36.0-36.9,adult Start:25-Apr-2022 Instruction Type:Provider Instructions for Treatment How to Access Health Informa tion Online using Patient Portal and [employer] Apps Indication:BMI 36.0-36.9,adult Start:25-Apr-2022 Instruction Type:Patient Education Patient Instructions Indication:BMI 36.0-36.9,adult Start:03-May-2021 Instruction Type:Provider Instructions for Treatment How to Access Health Informa tion Online using Patient Portal and [employer] Apps Indication:BMI 36.0-36.9,adult Start:03-May-2021 Instruction Type:Patient Education Patient Instructions Indication:BMI 36.0-36.9,adult Start:09-Apr-2021 Instruction Type:Provider Instructions for Treatment How to Access Health Informa tion Online using Patient Portal and [employer]rd [employer] Apps Indication:BMI 36.0-36.9,adult Start:09-Apr-2021 Instruction Type:Patient Education Patient Instructions Indication:Nonsmoker Start:06-Apr-2021 Instruction Type:Provider Instructions for Treatment How to Access Health Informa tion Online using Patient Portal and [employer] Apps Indication:Nonsmoker Start:06-Apr-2021 Instruction Type:Patient Education Patient Instructions Indication:BMI 36.0-36.9,adult Start:03-Aug-2020 Instruction Type:Provider Instructions for Treatment How to Access Health Informa tion Online using Patient Portal and [employer] Apps Indication:BMI 36.0-36.9,adult Start:03-Aug-2020 Instruction Type:Patient Education Patient Instructions Indication:Nonsmoker Start:29-Apr-2020 Instruction Type:Provider Instructions for Treatment How to Access Health Informa tion Online using Patient Portal and [employer] Apps Indication:Nonsmoker Start:29-Apr-2020 Instruction Type:Patient Education Patient Instructions Indication:Hypertension Start:22-Apr-2020 Instruction Type:Provider Instructions for Treatment How to Access Health Informa tion Online using Patient Portal and [employer] Apps Indication:Hypertension Start:22-Apr-2020 Instruction Type:Patient Education [facility]; [facility] Work Phone: Instructions* Name Dates Details Patient Instructions Indication:Hypertension Start:05-Dec-2022 Instruction Type:Provider Instructions for Treatment How to Access Health Informa tion Online using Patient Portal and [employer]rd [employer] Apps Indication:Hypertension Start:05-Dec-2022 Instruction Type:Patient Education Patient Instructions Indication:BMI 36.0-36.9,adult Start:25-Apr-2022 Instruction Type:Provider Instructions for Treatment How to Access Health Informa tion Online using Patient Portal and [employer]rd [employer] Apps Indication:BMI 36.0-36.9,adult Start:25-Apr-2022 Instruction Type:Patient Education Patient Instructions Indication:BMI 36.0-36.9,adult Start:03-May-2021 Instruction Type:Provider Instructions for Treatment How to Access Health Informa tion Online using Patient Portal and [employer]rd [employer] Apps Indication:BMI 36.0-36.9,adult Start:03-May-2021 Instruction Type:Patient Education Patient Instructions Indication:BMI 36.0-36.9,adult Start:09-Apr-2021 Instruction Type:Provider Instructions for Treatment How to Access Health Informa tion Online using Patient Portal and [employer]rd [employer] Apps Indication:BMI 36.0-36.9,adult Start:09-Apr-2021 Instruction Type:Patient Education Patient Instructions Indication:Nonsmoker Start:06-Apr-2021 Instruction Type:Provider Instructions for Treatment How to Access Health Informa tion Online using Patient Portal and [employer]rd [employer] Apps Indication:Nonsmoker Start:06-Apr-2021 Instruction Type:Patient Education Patient Instructions Indication:BMI 36.0-36.9,adult Start:03-Aug-2020 Instruction Type:Provider Instructions for Treatment How to Access Health Informa tion Online using Patient Portal and [employer]rd [employer] Apps Indication:BMI 36.0-36.9,adult Start:03-Aug-2020 Instruction Type:Patient Education Patient Instructions Indication:Nonsmoker Start:29-Apr-2020 Instruction Type:Provider Instructions for Treatment How to Access Health Informa tion Online using Patient Portal and [employer] Apps Indication:Nonsmoker Start:29-Apr-2020 Instruction Type:Patient Education Patient Instructions Indication:Hypertension Start:22-Apr-2020 Instruction Type:Provider Instructions for Treatment How to Access Health Informa tion Online using Patient Portal and [employer]rd [employer] Apps Indication:Hypertension Start:22-Apr-2020 Instruction Type:Patient Education [facility]; [facility] Work Phone: reason for referral (narrative)No reason for referral information availableWHocking [facility] Work Phone: Summary Purpose Family History No Family History Records FoundUnknown Family Member Name Dates Details Father Comments: at 87 from com plications of stroke, had heart valve problems Status:Active Maternal Grandfather Comments:passed from leukemi a Status:Active Maternal Grandmother Comments:lived to 90 Status:Active Mother Comments:pancreatic cancer Status:Active Unknown Family Member Name Dates Details Father Comments: at 87 from com plications of stroke, had heart valve problems Status:Active Maternal Grandfather Comments:passed from leukemi a Status:Active Maternal Grandmother Comments:lived to Status:Active Mother Comments:pancreatic cancer Status:Active Unknown Family Member Name Dates Details Father Comments: at 87 from com plications of stroke, had heart valve problems Status:Active Maternal Grandfather Comments:passed from leukemi a Status:Active Maternal Grandmother Comments:lived to Status:Active Mother Comments:pancreatic cancer Status:Active Unknown Family Member Name Dates Details Father Comments: at 87 from com plications of stroke, had heart valve problems Status:Active Maternal Grandfather Comments:passed from leukemi a Status:Active Maternal Grandmother Comments:lived to Status:Active Mother Comments:pancreatic cancer Status:Active Unknown Family Member Name Dates Details Father Comments: at 87 from com plications of stroke, had heart valve problems Status:Active Maternal Grandfather Comments:passed from leukemi a Status:Active Maternal Grandmother Comments:lived to Status:Active Mother Comments:pancreatic cancer Status:Active Unknown Family Member Name Dates Details Father Comments: at 87 from com plications of stroke, had heart valve problems Status:Active Maternal Grandfather Comments:passed from leukemi a Status:Active Maternal Grandmother Comments:lived to Status:Active Mother Comments:pancreatic cancer Status:Active Unknown Family Member Name Dates Details Father Comments: at 87 from com plications of stroke, had heart valve problems Status:Active Maternal Grandfather Comments:passed from leukemi a Status:Active Maternal Grandmother Comments:lived to Status:Active Mother Comments:pancreatic cancer Status:Active Unknown Family Member Name Dates Details Father Comments: at 87 from com plications of stroke, had heart valve problems Status:Active Maternal Grandfather Comments:passed from leukemi a Status:Active Maternal Grandmother Comments:lived to Status:Active Mother Comments:pancreatic cancer Status:Active Unknown Family Member Name Dates Details Father Comments: at 87 from com plications of stroke, had heart valve problems Status:Active Maternal Grandfather Comments:passed from leukemi a Status:Active Maternal Grandmother Comments: to Status:Active Mother Comments:pancreatic cancer Status:Active Unknown Family Member Name Dates Details Father Comments: at 87 from com plications of stroke, had heart valve problems Status:Active Maternal Grandfather Comments:passed from leukemi a Status:Active Maternal Grandmother Comments: to Status:Active Mother Comments:pancreatic cancer Status:Active Unknown Family Member Name Dates Details Father Comments: at 87 from com plications of stroke, had heart valve problems Status:Active Maternal Grandfather Comments:passed from leukemi a Status:Active Maternal Grandmother Comments: to Status:Active Mother Comments:pancreatic cancer Status:Active Unknown Family Member Name Dates Details Father Comments: at 87 from com plications of stroke, had heart valve problems Status:Active Maternal Grandfather Comments:passed from leukemi a Status:Active Maternal Grandmother Comments: to Status:Active Mother Comments:pancreatic cancer Status:Active Unknown Family Member Name Dates Details Father Comments: at 87 from com plications of stroke, had heart valve problems Status:Active Maternal Grandfather Comments:passed from leukemi a Status:Active Maternal Grandmother Comments: to Status:Active Mother Comments:pancreatic cancer Status:Active Unknown Family Member Name Dates Details Father Comments: at 87 from com plications of stroke, had heart valve problems Status:Active Maternal Grandfather Comments:passed from leukemi a Status:Active Maternal Grandmother Comments: Status:Active Mother Comments:pancreatic cancer Status:Active Unknown Family Member Name Dates Details Father Comments: at 87 from com plications of stroke, had heart valve problems Status:Active Maternal Grandfather Comments:passed from leukemi a Status:Active Maternal Grandmother Comments: Status:Active Mother Comments:pancreatic cancer Status:Active Unknown Family Member Name Dates Details Father Comments: at 87 from com plications of stroke, had heart valve problems Status:Active Maternal Grandfather Comments:passed from leukemi a Status:Active Maternal Grandmother Comments: Status:Active Mother Comments:pancreatic cancer Status:Active Unknown Family Member Name Dates Details Father Comments: at 87 from com plications of stroke, had heart valve problems Status:Active Maternal Grandfather Comments:passed from leukemi a Status:Active Maternal Grandmother Comments:lived to 90 Status:Active Mother Comments:pancreatic cancer Status:Active Relationship Condition Age at Onset Recorded Date/T brandi grandfather Leukemia Unknown father Cerebrovascular accident (CVA) Unknown Heart valve disease Unknown Coronary artery disease Unknown mother Malignant neoplasm Unknown brother Coronary artery disease Unknown sister Cardiac disease Unknown Unknown Family Member Name Dates Details Father Comments: at 87 from com plications of stroke, had heart valve problems Status:Active Maternal Grandfather Comments:passed from leukemi a Status:Active Maternal Grandmother Comments:lived to Status:Active Mother Comments:pancreatic cancer Status:Active Unknown Family Member Name Dates Details Father Comments: at 87 from com plications of stroke, had heart valve problems Status:Active Maternal Grandfather Comments:passed from leukemi a Status:Active Maternal Grandmother Comments:lived to Status:Active Mother Comments:pancreatic cancer Status:Active Unknown Family Member Name Dates Details Father Comments: at 87 from com plications of stroke, had heart valve problems Status:Active Maternal Grandfather Comments:passed from leukemi a Status:Active Maternal Grandmother Comments:lived to Status:Active Mother Comments:pancreatic cancer Status:Active Unknown Family Member Name Dates Details Father Comments: at 87 from com plications of stroke, had heart valve problems Status:Active Maternal Grandfather Comments:passed from leukemi a Status:Active Maternal Grandmother Comments:lived to Status:Active Mother Comments:pancreatic cancer Status:Active Advance Directives No Advanced Directives Records FoundNo Advanced Directives Records FoundNo Advanced Directives Records FoundNo Advanced Directives Records Found Instructions Name Dates Details Patient Instructions Indication:Hypertension Start:22-Apr-2020 Instruction Type:Provider Instructions for Treatment How to Access Health Informa tion Online using Patient Portal and 3rd [employer] Apps Indication:Hypertension Start:22-Apr-2020 Instruction Type:Patient Education Name Dates Details Patient Instructions Indication:Hypertension Start:22-Apr-2020 Instruction Type:Provider Instructions for Treatment How to Access Health Informa tion Online using Patient Portal and [employer] Apps Indication:Hypertension Start:22-Apr-2020 Instruction Type:Patient Education Name Dates Details Patient Instructions Indication:Hypertension Start:22-Apr-2020 Instruction Type:Provider Instructions for Treatment How to Access Health Informa tion Online using Patient Portal and 3rd [employer] Apps Indication:Hypertension Start:22-Apr-2020 Instruction Type:Patient Education Name Dates Details Patient Instructions Indication:Nonsmoker Start:29-Apr-2020 Instruction Type:Provider Instructions for Treatment How to Access Health Informa tion Online using Patient Portal and [employer] Apps Indication:Nonsmoker Start:29-Apr-2020 Instruction Type:Patient Education Patient Instructions Indication:Hypertension Start:22-Apr-2020 Instruction Type:Provider Instructions for Treatment How to Access Health Informa tion Online using Patient Portal and [employer] Apps Indication:Hypertension Start:22-Apr-2020 Instruction Type:Patient Education Name Dates Details Patient Instructions Indication:Nonsmoker Start:29-Apr-2020 Instruction Type:Provider Instructions for Treatment How to Access Health Informa tion Online using Patient Portal and [employer] Apps Indication:Nonsmoker Start:29-Apr-2020 Instruction Type:Patient Education Patient Instructions Indication:Hypertension Start:22-Apr-2020 Instruction Type:Provider Instructions for Treatment How to Access Health Informa tion Online using Patient Portal and [employer] Apps Indication:Hypertension Start:22-Apr-2020 Instruction Type:Patient Education Chief Complaint and Reason for Visit Chief Complaint HTN HIGH BP (SELF) Reason for Visit Essential hypertensi on Obesity Chief Complaint Admit Date DIZZINESS August 05, 2024 7:4 3am Chief Complaint Admit Date HTN December 24, 2024 8: 48am Chief Complaint Admit Date HTN December 24, 2024 8: 48am HTN December 24, 2024 9: 07am LAUREANO January 01, 2025 12 :52pm Additional Source Comments (unrecognized sect ion and content) No Status Records FoundNo Status Records FoundNo Status Records FoundNo Status Records Found INFORMATION SOURCE (unrecogn ized section and content) DATE CREATED AUTHOR 04/13/2019 [facility] DATE CREATED AUTHOR AUTHOR'S ORGANIZ ATION 05/05/2022 [facility] DATE CREATED AUTHOR AUTHOR'S ORGANIZ ATION 12/12/2022 [facility] DATE CREATED AUTHOR AUTHOR'S ORGANIZ ATION [facility] Care Teams (unrecognized sec tion and content) Team Status: Active Member Role Status Dates DANE RoyC Primary Care Provider Active Team Status: Inactive Member Role Status Dates Dr. Roberta Almanzar MD Attending Provider Active Connie Flores NP-C Primary Care Provider, Referring Provider Active Team Status: Inactive Member Role Status Dates Connie Flores , SPECIAL EVENT ASSISTANT-C Primary Care Provi rafaela, Attending Provider, Referring Provider Active Team Status: Inactive Member Role Status Dates Connie Flores , SPECIAL EVENT ASSISTANT-C Primary Care Provider Active Start: August 05, 2024 End: August 05, 2024 Connie Flores SPECIAL EVENT ASSISTANT-C Attending Provider Active Start: August 05, 2024 End: August 05, 2024 Connie Flores SPECIAL EVENT ASSISTANT-C Referring Provider Active Start: August 05, 2024 End: August 05, 2024 Team Status: Active Member Role Status Dates Connie Flores SPECIAL EVENT ASSISTANT-C Primary Care Provider Active Start: August 05, 2024 Dr. Aman Lyon MD Attending Provider Active S tart: August 05, 2024 Team Status: Active Member Role/Relationship Status Dates Connie Flores SPECIAL EVENT ASSISTANT-C Primary Care Provider Active Team Status: Inactive Member Role/Relationship Status Dates Connie Flores SPECIAL EVENT ASSISTANT-C Primary Care Provider Active Start: December 24, 2024 End: December 24, 2024 Dr. Suzan Reddy DO Attending Provider Active Start: December 24, 2024 End: December 24, 2024 Dr. Suzan Reddy DO Referring Provider Active Start: December 24, 2024 End: December 24, 2024 Team Status: Active Member Role/Relationship Status Dates Dr. Magdi Abbott MD Attending Provider Active Start: December 24, 2024 Dr. Suzan Reddy DO Referring Provider Active Start: December 24, 2024 Team Status: Inactive Member Role/Relationship Status Dates Connie Flores SPECIAL EVENT ASSISTANT-C Primary Care Provider Active Start: January 01, 2025 End: January 01, 2025 Dr. Suzan Reddy DO Attending Provider Active Start: January 01, 2025 End: January 01, 2025 Dr. Suzan Reddy DO Referring Provider Active Start: January 01, 2025 End: January 01, 2025 Team Status: Active Member Role/Relationship Status Dates Connie Flores , SPECIAL EVENT ASSISTANT-C Primary Care Provider Active Start: January 01, 2025 Dr. Abhilash Hurtado MD Attending Provider Active S tart: January 01, 2025 Goals (unrecognized section and content) Goals may be documented in a n alternate sectionGoals may be documented in an alternate sectionGoals may be documented in an alternate sectionGoals may be documented in an alternate section FOR RECORDS PERTAINING TO PATIENTS WHO ARE OR HAVE BEEN ENROLLED IN A CHEMICAL DEPENDENCY/SUBSTANCEABUSE PROGRAM, SOME INFORMATION MAY BE OMITTED. This clinical summary was aggregated from multiple sources. Caution should be exercised in using it in the provision of clinical care. This summary normalizes information from multiple sources, and as a consequence, information in this document may materially change the coding, format and clinical context of patient data. In addition, data may be omitted in some cases. CLINICAL DECISIONS SHOULD BE BASED ON THE PRIMARY CLINICAL RECORDS. [facility] [employer] [facility]. provides no warranty or guarantee of the accuracy or completeness of information in this document.
--- NOTE | 2025-04-29 09:37 | NEURO_ITS ---
NCS and/or EMG Patient Report Ordering Doctor: Jayda Young DATE OF SERVICE: 04/29/25 Clinical Summary: 64 year old patient with symptoms of numbness in his feet/toes bilaterally. Nerve Conduction Studies Summary: Nerve conduction studies were performed in the bilateral lower extremities. The bilateral sural and left superficial peroneal SNAPs were absent. The peroneal motor conductions velocities were reduced diffusely bilaterally. The peroneal and tibial F-wave onset latencies were prolonged. Needle Examination Summary: Needle examination of the bilateral lower extremities was performed. There was increased insertional activity and spontaneous activity (positive sharp waves and fibrillation potentials) in the medial gastrocnemius muscles bilaterally. There was a higher proportion of motor unit action potentials with reduced recruitment, increased amplitude, increased duration, and polyphasia in the bilateral tibialis anterior and right peroneus longus muscles. Impression: This is an abnormal study. There is electrodiagnostic evidence of the following - 1) Sensorimotor, peripheral polyneuropathy, with primarily axonal features including active denervation Comment: Chronic neurogenic motor units seen in the tibialis anterior and peroneus longus muscles along with increased insertional & spontaneous activity in the medial gastrocnemius muscles can also be seen in the setting of right/ left L5 and/or S1 radiculopathies - although these findings by themselves are not confirmatory electrodiagnostically. Clinical/radiological correlation is suggested. Multi Select Codes Neurology Neurology Interp Codes: 00332-02 Musc test done w/n test comp (interp) (2) and 92977-89 Nrv cndj test 9-10 studies (interp)
== END | disposition home or self-care (01) ==
LOC: PSN 06:46
PROVIDERS: PCP Nurse Practitioner Family; Referring Provider Nurse Practitioner Family; Visit Provider Nurse Practitioner Family
DX: G57.93 Unspecified mononeuropathy of bilateral lower limbs (principal)
CPT/HCPCS: 95886; 95911